=== PATIENT | male | born 1945 | race Caucasian/White ===

== ENCOUNTER 2022-07-02 22:23 | Emergency (ER) | payer MEDICARE ==
[2022-07-02 22:35] VITALS: RESP 16; TEMP 98.3
[2022-07-02] MEDS ORDERED: MORPHINE SULFATE 4 MG/ML SYRINGE IVP STA (22:35)
--- NOTE | 2022-07-02 23:50 | CT ---
EXAMINATION TYPE: CT thor lumbar spine wo con DATE OF EXAM: 07/02/2022 COMPARISON: None HISTORY: fall, back pain CT DLP: 2814.5 mGycm Automated exposure control for dose reduction was used. Images obtained from the level of T1-S1 vertebra with no contrast. The vertebrae have fairly normal alignment. No significant disc space narrowing. No compression fract ure. There is osteopenia. There is some minimal biconcave changes in the lumbar vertebral bodies. No significant loss of height. There is 10% anterior wedging of multiple lower thoracic vertebrae that d oes not appear acute. There is no thoracic paraspinal mass. The posterior elements are intact. There is hypertrophic facet arthropathy and ligament thickening with spinal stenosis at L4-5 and mild spinal stenosis at L3-4. The sacroiliac joints are intact. No focal bone destruction. IMPRESSION: No evidence of acute traumatic abnormality of the thoracic and lumbar spine. Multiple mild compressio n deformities as above consistent with osteoporosis and osteomalacia. L4-5 bony spinal stenosis.
[2022-07-03] MEDS ORDERED: HYDROmorphone 1 MG/ML 1 ML SYRINGE IVP STA (00:22)
--- NOTE | 2022-07-03 00:41 | ED ---
Fall HPI - General Chief Complaint: Fall Stated Complaint: Fall Time Seen by Provider: 07/02/22 22:35 Source: patient Mode of arrival: EMS - History of Present Illness Initial Comments: 76-year-old male presents emergency room and after he had a fall. States that his right leg has been hurting him and therefore it has been giving out on him. States that he fell at home around 10:00. He fell backwards onto a carpeted floor. He landed on his lower back. He was unable to get up and therefore his had a couple EMS. He did not hit his head. He is not on any blood thin ners. Denies any numbness or tingling into his legs. No incontinence or retention. Was not on the floor for an extended period of time. He does take [place] at home for pain control however has not taken any in several days. He denies passing out. No other alleviating, precipitating or modifying factors - Related Data Previous Rx's Medication Instructions Recorded HYDROcodone/APAP 10-325MG [[place] 1 tab PO Q4HR PRN #18 tab 07/03/22 10-325] Allergies Allergy/AdvReac Type Severity Reaction Status Date / Time Iodinated Contrast Media Allergy Itching Verified 07/02/22 22:36 Review of Systems ROS Statement: Those systems with pertinent positive or pertinent negative responses have been documented in the HPI. ROS Other: All systems not noted in ROS Statement are negative. Past Medical History Past Medical History: Hypertension History of Any Multi-Drug Resistant Organisms: None Reported Past Surgical History: Bariatric Surgery, Cholecystectomy Past Psychological History: No Psychological Hx Reported Smoking Status: Former smoker Past Alcohol Use History: Daily, Occasional Past Drug Use History: None Reported General Exam Limitations: no limitations General appearance: alert, in no apparent distress Head exam: Present: atraumatic, normocephalic, normal inspection Eye exam: Present: normal appearance, PERRL, EOMI. Absent: scleral icterus, conjunctival injection, periorbital swelling ENT exam: Present: normal exam, mucous membranes moist Neck exam: Present: normal inspection. Absent: tenderness, meningismus, lymphadenopathy Respiratory exam: Present: normal lung sounds bilaterally. Absent: respiratory distress, wheezes, rales, rhonchi, stridor Cardiovascular Exam: Present: regular rate, normal rhythm, normal heart sounds. Absent: systolic murmur, diastolic murmur, rubs, gallop, clicks GI/Abdominal exam: Present: soft, normal bowel sounds. Absent: distended, tenderness, guarding, rebound, rigid Extremities exam: Present: normal inspection, full ROM, normal capillary refill, other (5/5 muscle strength b/l le). Absent: tenderness, pedal edema, joint swelling, calf tenderness Back exam: Present: normal inspection, paraspinal tenderness (lumbar spine) Neurological exam: Present: alert, oriented X3, CN II-XII intact Psychiatric exam: Present: normal affect, normal mood Skin exam: Present: warm, dry, intact, normal color. Absent: rash Course Vital Signs 07/02/22 07/03/22 07/03/22 22:28 00:35 01:35 Temperature 98.3 F 98.3 F Pulse Rate 89 90 72 Respiratory 16 16 16 Rate Blood Pressure 134/86 118/68 114/72 O2 Sat by Pulse 95 96 97 Oximetry Medical Decision Making - Medical Decision Making Was pt. sent in by a medical professional or institution? @ -No Did you speak to anyone other than the patient for history? @ - Did you review nursing and triage notes? @ -Yes and I agree Were old charts reviewed? @ -none Differential Diagnosis? @ - MDM Differential Back Pain: Strain, zoster, cauda equina syndrome, epidural abscess, vertebral osteomyelitis, discitis, fracture, subluxation, disc herniation, DJD, spinal stenosis, dissection, AAA, pancreatitis, peptic ulcer disease, pyelonephritis, kidney stone this is not meant to be an all-inclusive list. EKG interpreted by me (3pts min.)? @ -no X-rays interpreted by me (1pt min.)? @ -no CT interpreted by me (1pt min.)? @ -yes U/S interpreted by me (1pt. min.)? @ -no What testing was considered but not performed? (CT, X-rays, U/S, labs)? Why? @ None What meds were considered but not given? Why? @ -[none] Did you discuss the management of the patient with other professionals? @ -none Did you reconcile home meds? @ -No Was smoking cessation discussed for >3mins.? @ -No Was critical care preformed (if so, how long)? @ -No Were there social determinants of health that impacted care today? How? (Homelessness, low income, unemployed, alcoholism, drug addiction, transportation, low edu. Level, literacy, decrease access to med. care, senior living, rehab)? @ None Was there de-escalation of care discussed even if they declined? (Discuss DNR or withdrawal of care, Hospice)? @ None What co-morbidities impacted this encounter? (DM, HTN, Smoking, COPD, CAD, Cancer, CVA, Hep., AIDS, mental health diagnosis, sleep apnea, morbid obesity)? @ - morbid obesity Was patient admitted / discharged? Upon arrival patient was placed into room 1. A thorough history and physical exam was performed. He was given 4 mg of morphine for pain control. He isn't sent for a CT of his thoracic and lumbar spine. CT does not demonstrate any acute fractures. Patient requesting more pain medications for which she was provided. He is unable to get up and ambulate without difficulty. I did discuss the diagnosis, differential and treatment options. Patient feels comfortable discharge at this time. He is given a short course of [place] for his pain. He is to follow-up with his primary care doctor and return for any new or worsening symptoms. Patient agreeable as planned is discharged home a bit her in stable condition Undiagnosed new problem with uncertain prognosis? @ -yes Drug Therapy requiring intensive monitoring for toxicity (Heparin, Nitro, Insulin, Cardizem)? @ No Were any procedures done? @ No Diagnosis/symptom? @ -acute lumbar back strain, fall Acute, or Chronic, or Acute on Chronic? @ -acute Uncomplicated (without systemic symptoms) or Complicated (systemic symptoms)? @ -uncomplicated Side effects of treatment? @ None Exacerbation, Progression, or Severe Exacerbation] @ No Poses a threat to life or bodily function? @ No - EKG Data EKG Comments: EKG demonstrates sinus rhythm with a rate of 70. TX interval 180. QRS 186. QTC of 483. No acute ST segment elevations or depressions Disposition Clinical Impression: Fall, Lumbar back pain Disposition: HOME SELF-CARE Condition: Stable Instructions (If sedation given, give patient instructions): Fall Prevention for Older Adults (ED) Additional Instructions: Please take the pain medication as directed. Follow up with your doctor. May need further imaging of your pain persists. Return for any new or worsening symptoms Prescriptions: HYDROcodone/APAP 10-325MG [[place] 10-325] 1 tab PO Q4HR PRN #18 tab PRN Reason: pain Is patient prescribed a controlled substance at d/c from ED?: Yes When asked, does pt state using other controlled substances?: No If prescribed controlled substance>3 days was MAPS reviewed?: Prescribed <3 Days If opioid is for acute pain is fill amount 7 days or less?: Yes If Rx opioid, was Start Talking consent form obtained?: Yes Referrals: Lashaun Castro MD [Primary Care Provider] - 1-2 days Time of Disposition: 01:23
[2022-07-03 02:08] VITALS: BP 114/72; PULSE 72
== END 2022-07-03 01:42 | disposition home or self-care (01) ==
LOC: EC 22:23
DX: M54.50 Low back pain, unspecified (principal); I10 Essential (primary) hypertension; Z87.891 Personal history of nicotine dependence; Z91.041 Radiographic dye allergy status; W19.XXXA Unspecified fall, initial encounter
CPT/HCPCS: 72128; 72131; 99284; 96374; 96375; J2270; J1170; 93005

== ENCOUNTER → 2022-07-12 | Outpatient (CLI) | payer MEDICARE ==
--- NOTE | 2022-07-12 18:32 | CT ---
EXAMINATION TYPE: CT thoracic spine wo con, CT lumbar spine wo con CT DLP: 5322.3 mGycm, Automated exposure control for dose reduction was used. DATE OF EXAM: 07/12/2022 6:08 PM COMPARISON: Recent study 07/02/2022. CLINICAL INDICATION:Male, 76 years old with history of M54.50 LOW BACK PAIN, UNSPECIFIED; , Fall on 0 07/02/22. Worsening Back pain and difficulty standing. TECHNIQUE: Axial images of the thoracic and lumbar spine were obtained without contrast. Coronal and sagittal reformats were performed. 3-D reformats of the bones were created on a separate workstation and submitted for review. FINDINGS: Thoracic spine demonstrates multilevel disc degeneration and facet joint arthropathy. There is straig htening of the spine. There is no evidence for fracture of the visualized thoracic spine. Partially v isualized lower cervical spine fixation hardware is present. Scattered neural foraminal stenosis wors e at T10-T11 bilaterally with at least moderate stenosis. Right lower lobe calcified granuloma. Addit ionally there is ar sclerotic focus measuring 8 mm and right rib 5 likely representing bone island. T he spinal canal appears patent. The lumbar spine demonstrates multilevel disc degeneration changes worse at L2 with compression fract ure with curvilinear lucency extending through the vertebral body with at least 50% height loss. This is not visualized on prior 07/02/2022. There is scattered facet joint arthropathy throughout the spine with varying degrees of [id number] neural foraminal stenosis. There is grade 1 anterolisthesis of L4 and L5. Spinal canal is grossly patent. There is at least moderate L4-L5 spinal canal stenosis and L3-L4 spinal canal stenosis secondary disc bulge and facet joint arthropathy. IMPRESSION: 1. Acute/subacute L2 vertebral body compression fracture with at least 50% height loss. No retropuls ion. This is more conspicuous from 07/02/2022. 2. L3-L4 and L4-L5 moderate spinal canal stenosis. A Yellow level critical message alert has been initiated for Lashaun Castro MD via the [employer] Critical Results System on 07/12/2022 6:29 PM. This message alert has been sent to Lashaun lott MD via the preferences provided by the clinician for the receipt of Radiology Critical Findings. Message ID [id number].
== END | disposition home or self-care (01) ==
LOC: RADCTMAIN 16:51
PROVIDERS: ATTEND Family Medicine
DX: M48.56XA Collapsed vertebra, not elsewhere classified, lumbar region, initial encounter for fracture (principal); M48.061 Spinal stenosis, lumbar region without neurogenic claudication
CPT/HCPCS: 72128; 72131

== ENCOUNTER → 2022-10-22 | Outpatient (CLI) | payer MEDICARE ==
[2022-10-22 15:46] LABS: HCT 46.4 % (39.6-50.0); HGB 14.1 g/dL (13.0-17.0); MCHC 30.4 g/dL (32.0-37.0); MCV 92.1 fL (80.0-97.0); Mean Platelet Volume 11.3 fL (9.5-12.2); NRBC Per 100 WBC 0 /100 WBCS (0.0-0.0); Platelet Count 226 X 10*3/uL (140-440); RBC 5.04 X 10*6/uL (4.40-5.60); RDW 16.1 % (11.5-14.5); WBC 6.79 X 10*3/uL (4.50-10.00)
[2022-10-22 16:04] LABS: Anion Gap 7.8 mmol/L (10.00-18.00); Carbon Dioxide 27.5 mmol/L (20.0-27.5); Potassium 5.1 mmol/L (3.5-5.5)
[2022-10-22 16:05] LABS: Blood Urea Nitrogen 24.7 mg/dL (9.0-27.0); Non-African American GFR(CKD) 55.2 (60.0-200.0)
== END | disposition home or self-care (01) ==
LOC: LABPAT 11:41
PROVIDERS: ATTEND Internal Medicine Interventional Cardiology
DX: Z01.812 Encounter for preprocedural laboratory examination (principal); I25.10 Atherosclerotic heart disease of native coronary artery without angina pectoris
CPT/HCPCS: 80051; 82565; 84520; 85027

== ENCOUNTER 2022-10-25 06:10 | Day surgery (SDC) | payer MEDICARE ==
[2022-10-22 16:35] VITALS: BMI 34.9
[~2022-10-25 06:10] MED LIST: ALPRAZolam 0.25 MG TAB PO PRN; ALPRAZolam 0.5 MG TAB PO PRN; HEPARIN SODIUM,PORCINE 10,000 UNIT in SODIUM CHLORIDE 0.9% 1,000 ML IRRIGATION PRN; HEPARIN SODIUM,PORCINE 2,500 UNIT in SODIUM CHLORIDE 0.9% 250 ML IRRIGATION PRN; NITROGLYCERIN SL TABS 0.4 MG TAB SUBLINGUAL PRN; SODIUM CHLORIDE 0.9% 1,000 ML in EMPTY BAG 1 BAG IV SCH
[2022-10-25 06:55] VITALS: RESP 16; TEMP 97.5
[2022-10-25] MEDS ORDERED: ATORVASTATIN 80 MG TAB PO ONE (07:00)
[2022-10-25] MEDS ORDERED: ASPIRIN 325 MG TAB PO ONE (07:00)
[2022-10-25] MEDS ORDERED: VERAPAMIL 2.5 MG/ML 2 ML AMP ONE (07:12)
[2022-10-25] MEDS ORDERED: HEPARIN SODIUM 1,000 UN/ML (10ML VL) ONE (07:27)
[2022-10-25] MEDS ORDERED: MIDAZOLAM 2 MG/2 ML VIAL IVP ONE (07:41)
[2022-10-25] MEDS ORDERED: LIDOCAINE 1% INJ 10MG/ML (5 ML VIAL-PF) SQ ONE (07:41)
[2022-10-25] MEDS ORDERED: VERAPAMIL SYRINGE (5 MG/10 ML) INTRAARTER ONE (07:45)
[2022-10-25] MEDS ORDERED: IOPAMIDOL-370 100ML BTL INJ ONE (08:15)
[2022-10-25] MEDS ORDERED: RX INFO: IV CONTRAST WAS GIVEN 1 EACH MISC MISCELLANE PRN (08:19)
--- NOTE | 2022-10-25 08:22 | P.PCN ---
Date of Procedure: 10/25/22 Operative Findings: CARDIAC CATHETERIZATION PERFORMING PHYSICIAN: Terrance Jay MD, RPVI PROCEDURE PERFORMED: 1. Selective right and left coronary angiogram INDICATION: Unstable angina in this 76-year-old gentleman with multiple risk factors for CAD and also history of cardiomyopathy. COMPLICATION: None APPROACH: Right radial artery LEVEL OF SEDATION: Moderate with a sedation length of 33 minutes PROCEDURE DESCRIPTION: After obtaining an informed consent, the patient was brought to cardiac organic lab worker. Local anesthesia was performed using lidocaine subcutaneously. The right radial artery was cannulated using Seldinger technique, the guidewire passed easily, following that we advanced a 5-[place] sheath dilator assembly, the wire and dilator were removed and sheath was flushed. Following that, 2 mg of verapamil along with 5000 unit heparin were given. Selective right and left coronary angiogram using a 6-[place] JR4 and JL 3.5 catheters. The procedure was completed there was no complication. SELECTIVE CORONARY ANGIOGRAM: The right coronary artery: Large-caliber vessel and a dominant vessel. The RCA has mild disease distally. Left main: Is angiographically normal. Bifurcates into on the LCx and LAD The left circumflex: Large caliber vessel none dominant vessel. The LCx has mild disease only. Gives rise into a large OM branch which appeared to be angiographically normal The left anterior descending artery: The proximal LAD appeared to have mild disease only. The mid and distal LAD appears to have mild disease as well. The LAD gives rise to 3 diagonal branches appeared to be angiographically normal CONCLUSION: 1. Mild nonobstructive coronary artery disease POSTPROCEDURE MANAGEMENT: Medical treatment and follow-up with the patient
[2022-10-25] MEDS ORDERED: SODIUM CHLORIDE 0.9% 1,000 ML IV SCH (08:30)
[2022-10-25 09:32] VITALS: PULSE 82
[2022-10-25 11:49] VITALS: BP 117/68
== END 2022-10-25 13:20 | disposition home or self-care (01) ==
LOC: CATHCVL 06:10
PROVIDERS: ATTEND Internal Medicine Interventional Cardiology
DX: I25.10 Atherosclerotic heart disease of native coronary artery without angina pectoris (principal)
CPT/HCPCS: 93454; C1769 ×3; C1894; C1887; J2250; J2001; J1644; Q9967

== ENCOUNTER → 2023-01-15 | Outpatient (CLI) | payer MEDICARE ==
--- NOTE | 2023-01-15 19:14 | NM ---
EXAMINATION TYPE: NM bone scan whole body DATE OF EXAM: 01/15/2023 COMPARISON: NONE CLINICAL INDICATION: Male, 77 years old with history of M47.816, M51.16, S22.080S; low back pain, fal l in July. Previous right shoulder and bilateral knee replacements. Technique: Delayed whole-body scanning was performed following the injection of 23.5 mCi Tc 99m MDP. Images acquired 3 hours post injection. FINDINGS: Photopenia at the right shoulder and both knees compatible with underlying joint replacements. There is scattered tracer activity at the sternoclavicular joints, base of the thumb on both sides, a nd left ankle/hindfoot. No suspicious distribution of tracer to suggest osseous metastatic disease. No abnormal activity with particular attention to the lumbar spine. IMPRESSION: 1. Some degenerative tracer activity at the sternoclavicular joints and base of the thumbs. Focal act ivity also along the left ankle or hindfoot could be post traumatic or on a degenerative basis as wel l. 2. No scintigraphic evidence for osseous metastatic disease.
== END | disposition home or self-care (01) ==
LOC: RADNMMAIN 10:22
PROVIDERS: ATTEND Physical Medicine & Rehabilitation
DX: M47.26 Other spondylosis with radiculopathy, lumbar region (principal); M51.16 Intervertebral disc disorders with radiculopathy, lumbar region; M43.16 Spondylolisthesis, lumbar region; M48.062 Spinal stenosis, lumbar region with neurogenic claudication; S22.080S Wedge compression fracture of T11-T12 vertebra, sequela; S32.020S Wedge compression fracture of second lumbar vertebra, sequela; M19.011 Primary osteoarthritis, right shoulder; Z96.653 Presence of artificial knee joint, bilateral; M54.51 Vertebrogenic low back pain; X58.XXXS Exposure to other specified factors, sequela; W19.XXXS Unspecified fall, sequela
CPT/HCPCS: 78306; A9503

== ENCOUNTER 2023-02-28 07:53 | Day surgery (SDC) | payer MEDICARE ==
[2023-02-28] MEDS ORDERED: diazePAM 5 MG TAB PO STA (08:24)
[2023-02-28 12:31] VITALS: RESP 16
[2023-02-28 13:48] VITALS: BP 147/88; PULSE 76
--- NOTE | 2023-02-28 16:28 | FL ---
EXAMINATION TYPE: FL myelogram 2 or more regions DATE OF EXAM: 02/28/2023 10:13 AM CLINICAL INDICATION:Male, 77 years old with history of M50.321; COMPARISON: Same day CT, TECHNIQUE: After the procedure was explained and informed consent was obtained from the patient, the patient was prepped and draped in the usual sterile fashion. Patient was put in the prone position an d the lower lumbar spine was imaged. 1% Lidocaine was used as local anesthetic using a 25 gauge needl e. A 22 gauge spinal needle was then advanced into the thecal sac using fluoroscopic guidance. Approx imately 10 cc of contrast was injected into the thecal sac. The needle was then removed and a Band-A id was applied. The patient tolerated procedure well. The patient was then sent to the CT unit for CT exam. Fluoroscopic time: 31 seconds Fluoroscopic images: 0 Radiographs taken: 8 DAP not reported by machine. FINDINGS: The lumbar vertebral bodies have preserved heights and alignment. The contrast column was seen at the level of approximately L2. The lumbar spine did demonstrate lower lumbar endplate scleros is and osteophytosis. Patient was then sent to CT holding in the Trendelenburg position for approximately 45 minutes prior to scanning. IMPRESSIONS: Successful myelogram with CT myelogram to follow.
--- NOTE | 2023-02-28 19:10 | CT ---
EXAMINATION TYPE: CT cervical spine w con CT DLP: 1664.5 mGycm, Automated exposure control for dose reduction was used. DATE OF EXAM: 02/28/2023 11:07 AM COMPARISON: None. CLINICAL INDICATION:Male, 77 years old with history of M50.321, post myelogram TECHNIQUE: Axial CT images from the skull base to the inferior aspect of T2 we obtained without intra venous contrast. Coronal and sagittal reformatted images were also reviewed. Contrast used:10cc intrathecal contrast of Isovue M300 (if blank None) Oral contrast used: (if blank None) FINDINGS: Fracture: None. Osseous structures: Multilevel disc degeneration changes are seen throughout the spine. There is fixa tion hardware from C5 to C7 which appears intact. There is at least mild spinal canal stenosis at C3- C4 and C4-C5. Vertebral alignment: Alignment within normal limits. Spinal canal/Neural Foramina: There is at least mild spinal canal stenosis at C3-C4 and C4-C5 seconda ry to disc osteophyte complex's.. The neural foramen are moderately stenosis at C3-C4, mildly at righ t C4-C5, moderately bilateral C5-C6, and moderately to severe left C6-C7. Neck soft tissues: Prevertebral soft tissues are within normal limits. Other: The airway is patent. The lung apices are clear. Atherosclerosis of the carotid bifurcations. IMPRESSION: 1. No evidence of cervical spine fracture. 2. There is at least mild spinal canal stenosis at C3-C4 and C4-C5. 3. Multilevel degeneration changes with moderate multilevel neural foraminal stenosis 4. Post fixation changes with hardware intact.
--- NOTE | 2023-02-28 19:44 | CT ---
EXAMINATION TYPE: CT lumbar spine w con CT DLP: 645 mGycm, Automated exposure control for dose reduction was used. DATE OF EXAM: 02/28/2023 10:27 AM COMPARISON: 07/12/2022. CLINICAL INDICATION:Male, 77 years old with history of M50.321; PHH, post myelogram TECHNIQUE: Multiple axial images were obtained from the midportion of T11 through the sacroiliac edna nts. Soft tissue and bone windows in coronal and sagittal planes were obtained and reviewed. 3- Contrast used:10cc of Isovue M300 intrathecal. Oral contrast used: none. FINDINGS: Alignment: There are 5 lumbar type vertebral bodies. Grade 1 anterolisthesis of L4 on L5. Bone: No evidence of fracture is identified. Multilevel disc degeneration changes with osteophyte fo rmation and facet joint arthropathy. Scattered disc space narrowing is present throughout the spine. There is compression deformity of the L2 vertebral body with at least 50% height loss. No retropulsio n. No significant spinal canal stenosis. Discs: T12-L1: Facet joint arthropathy without significant spinal canal stenosis and mild bilateral neural f oraminal stenosis. L1-L2: Facet joint arthropathy without significant spinal canal stenosis and mild bilateral neural fo raminal stenosis. L2-L3: Facet joint arthropathy and disc bulging result with mild spinal canal stenosis and moderate b ilateral neural foraminal stenosis. L3-L4: Facet joint arthropathy and disc bulging result with moderate to severe spinal canal stenosis and moderate bilateral neural foraminal stenosis. L4-L5: Facet joint arthropathy and disc bulging result with mild to moderate spinal canal stenosis an d moderate to severe bilateral neural foraminal stenosis. L5-S1: Facet joint arthropathy and disc bulging without significant spinal canal stenosis . There is moderate neural foraminal stenosis bilaterally. Other: Moderate to severe atherosclerotic disease of the arterial vasculature. IMPRESSION: 1. Disc degeneration changes worse at L4-L5 with moderate to severe spinal canal stenosis and bilate ral neural foraminal stenosis. 2. Compression fracture of the L2 vertebrae with at least 50% height loss. No retropulsion.
== END 2023-02-28 14:00 | disposition home or self-care (01) ==
LOC: RADPROMAIN 07:53
PROVIDERS: ATTEND Orthopaedic Surgery Orthopaedic Surgery of the Spine
DX: M50.321 Other cervical disc degeneration at C4-C5 level (principal); M48.02 Spinal stenosis, cervical region
CPT/HCPCS: 62305; 72126; 72132; Q9967

== ENCOUNTER 2024-06-08 16:57 | Observation (INO) | payer MEDICARE ==
--- NOTE | 2024-06-08 18:38 | ED ---
General Adult HPI - General Chief complaint: Extremity Problem,Nontraumatic Stated complaint: bilateral foot swelling Time Seen by Provider: 06/08/24 17:10 Source: patient, family, RN notes reviewed Mode of arrival: wheelchair Limitations: no limitations - History of Present Illness Initial comments: This is a 78-year-old male with a history of congestive heart failure, atrial fibrillation with pacemaker on Eliquis presented to the emergency room with his for complaint of bilateral lower extremity edema and shortness of breath. States that over the past week he has been experiencing worsening dyspnea on exertion in addition to orthopnea. Over the past 2 days patient has experienced worsening bilateral lower extremity edema. Additionally, he has had a 10+ pound weight gain over the past week. She denies chest pain, heart palpitations, diz ziness, lightheadedness, abdominal pain. States he has been taking his medications as prescribed including Aldactone and Lasix. - Related Data Home Medications Medication Instructions Recorded Confirmed Cyclobenzaprine [Flexeril] 10 mg PO TID PRN 08/10/22 03/26/23 Escitalopram [Lexapro] 20 mg PO HS 08/10/22 03/26/23 Famotidine [Pepcid] 20 mg PO BID 08/10/22 03/26/23 Furosemide [Lasix] 40 mg PO DAILY 08/10/22 03/26/23 HYDROcodone/APAP 10-325MG [[place] 1 tab PO Q6H PRN 08/10/22 03/26/23 10-325] Metoprolol Succinate [Toprol XL] 100 mg PO HS 03/26/23 03/26/23 Sacubitril/Valsartan [Entresto 24 1 tab PO BID 03/26/23 03/26/23 mg-26 mg Tablet] Spironolactone [Aldactone] 25 mg PO HS 03/26/23 03/26/23 Previous Rx's Medication Instructions Recorded Apixaban [Eliquis] 5 mg PO BID tab 08/18/22 Aspirin 81 mg PO DAILY tab 08/18/22 Nitroglycerin Sl Tabs [Nitrostat] 0.4 mg SUBLINGUAL Q5M PRN tab 08/18/22 Allergies Allergy/AdvReac Type Severity Reaction Status Date / Time Iodinated Contrast Media Allergy Itching Verified 06/08/24 17:31 Review of Systems ROS Statement: Those systems with pertinent positive or pertinent negative responses have been documented in the HPI. ROS Other: All systems not noted in ROS Statement are negative. Past Medical History Past Medical History: Atrial Fibrillation, Heart Failure, Hypertension Additional Past Medical History / Comment(s): aortic aneurysm History of Any Multi-Drug Resistant Organisms: None Reported Past Surgical History: AICD, Bariatric Surgery, Cholecystectomy, Pacemaker Past Anesthesia/Blood Transfusion Reactions: No Reported Reaction Type of Cardiac Device: Permanent Pacemaker, AICD Device Placement Date:: 2010 Past Psychological History: No Psychological Hx Reported Smoking Status: Former smoker Past Alcohol Use History: Occasional Past Drug Use History: None Reported - Past Family History Father Family Medical History: Congestive Heart Failure (CHF), COPD, Diabetes Mellitus Mother Family Medical History: Congestive Heart Failure (CHF), Diabetes Mellitus General Exam Limitations: no limitations Eye exam: Present: normal appearance, PERRL, EOMI. Absent: scleral icterus, c onjunctival injection, periorbital swelling Neck exam: Present: normal inspection. Absent: tenderness, meningismus, lymphadenopathy Respiratory exam: Present: normal lung sounds bilaterally. Absent: respiratory distress, wheezes, rales, rhonchi, stridor Cardiovascular Exam: Present: regular rate, irregular rhythm, normal heart sounds. Absent: systolic murmur, diastolic murmur, rubs, gallop, clicks GI/Abdominal exam: Present: soft, normal bowel sounds. Absent: distended, tenderness, guarding, rebound, rigid Extremities exam: Present: pedal edema, other (bilateral LE 2+ pitting edema) Back exam: Present: normal inspection Skin exam: Present: warm, dry, intact, normal color. Absent: rash Course Vital Signs 06/08/24 06/08/24 06/08/24 17:31 20:25 21:17 Temperature 97.4 F L Pulse Rate 85 89 110 H Respiratory 18 20 18 Rate Blood Pressure 95/76 119/74 108/86 O2 Sat by Pulse 97 100 98 Oximetry Medical Decision Making - Medical Decision Making Was pt. sent in by a medical professional or institution (, PA, SUPERVISOR LOADING, urgent care, hospital, or usp...) When possible be specific @ -No Did you speak to anyone other than the patient for history (EMS, parent, family, police, friend...)? What history was obtained from this source @ -No Did you review nursing and triage notes (agree or disagree)? Why? @ -I reviewed and agree with nursing and triage notes Were old charts reviewed (outside hosp., previous admission, EMS record, old EKG, old radiological studies, urgent care reports/EKG's, usp records)? Report findings @ -No old charts were reviewed Differential Diagnosis (chest pain, altered mental status, abdominal pain women, abdominal pain men, vaginal bleeding, weakness, fever, dyspnea, syncope, headache, dizziness, GI bleed, back pain, seizure, CVA, palpatations, mental health, musculoskeletal)? @ -Differential Dyspnea: Coronary syndrome, arrhythmia, tamponade, asthma, COPD, pulmonary embolism, pneumonia, pneumothorax, pulmonary effusion, anaphylaxis, diabetic ketoacidosis, flailed chest, pulmonary contusion, diaphragmatic rupture, anemia, neuromuscular, this is not meant to be an all-inclusive list. EKG interpreted by me (3pts min.). @ - Completed at 1928 electronic atrial pacemaker and ventricular pacemaker with a ventricular rate of 110, UT interval 160, QRS 216, QTc 526. X-rays interpreted by me (1pt min.). @ -Chest x-ray no acute cardiopulmonary process or disease CT interpreted by me (1pt min.). @ -None done U/S interpreted by me (1pt. min.). @ -None done What testing was considered but not performed or refused? (CT, X-rays, U/S, labs)? Why? @ -None What meds were considered but not given or refused? Why? @ -None Did you discuss the management of the patient with other professionals (professionals i.e. , PA, SUPERVISOR [employer]ING, lab, RT, psych nurse, social work therapist, system support administrator, teacher, development officer, rn field case manager)? Give summary @ -I spoke with on-call internal medicine physician, Dr. Butts, regard to laboratory study findings concerning for hypocalcemia and clinical exam findings and BNP elevated consistent with CHF exacerbation. Patient is accepted for admission. Was smoking cessation discussed for >3mins.? @ -No Was critical care preformed (if so, how long)? @ -No Were there social determinants of health that impacted care today? How? (Homelessness, low income, unemployed, alcoholism, drug addiction, transportation, low edu. Level, literacy, decrease access to med. care, halfway, rehab)? @ -No Was there de-escalation of care discussed even if they declined (Discuss DNR or withdrawal of care, Hospice)? DNR status @ -No What co-morbidities impacted this encounter? (DM, HTN, Smoking, COPD, CAD, Cancer, CVA, ARF, Chemo, Hep., AIDS, mental health diagnosis, sleep apnea, morbid obesity)? @ -None Was patient admitted / discharged? Hospital course, mention meds given and route, prescriptions, significant lab abnormalities, going to OR and other pertinent info. @ -Admitted. 78-year-old male with dyspnea and lower extremity edema. Patient noted to have bilateral 2+ pitting lower extremity edema. Labs remarkable for hypocalcemia of 6.4, hypokalemia 3.3, elevated BNP 3810. Chest x-ray no acute process. Patient will be admitted to internal medicine with cardiology on consult and started on calcium supplementation and diuresis with concern for CHF exacerbation. Case discussed with Dr. Marino Undiagnosed new problem with uncertain prognosis? @ -No Drug Therapy requiring intensive monitoring for toxicity (Heparin, Nitro, Insulin, Cardizem)? @ -No Were any procedures done? @ -No Diagnosis/symptom? @ -Hypocalcemia, hypokalemia, CHF exacerbation Acute, or Chronic, or Acute on Chronic? @ -Acute Uncomplicated (without systemic symptoms) or Complicated (systemic symptoms)? @ -Complicated Side effects of treatment? @ -No Exacerbation, Progression, or Severe Exacerbation? @ -No Poses a threat to life or bodily function? How? (Chest pain, [place], [place], pneumonia, PE, COPD, DKA, ARF, appy, cholecystitis, CVA, Diverticulitis, Homicidal, Suicidal, threat to staff... and all critical care pts) @ -No - Lab Data Result diagrams: 06/08/24 19:26 06/08/24 19:26 Lab Results 06/08/24 06/08/24 06/08/24 Range/Units 19:26 19:26 19:26 WBC 6.1 (3.8-10.6) k/uL RBC 4.30 (4.30-5.90) m/uL Hgb 11.4 L (13.0-17.5) gm/dL Hct 37.3 L (39.0-53.0) % MCV 86.7 (80.0-100.0) fL MCH 26.6 (25.0-35.0) pg MCHC 30.6 L (31.0-37.0) g/dL RDW 16.6 H (11.5-15.5) % Plt Count 282 (150-450) k/uL MPV 8.8 Neutrophils % 65 % Lymphocytes % 22 % Monocytes % 8 % Eosinophils % 3 % Basophils % 0 % Neutrophils # 4.0 (1.3-7.7) k/uL Lymphocytes # 1.3 (1.0-4.8) k/uL Monocytes # 0.5 (0-1.0) k/uL Eosinophils # 0.2 (0-0.7) k/uL Basophils # 0.0 (0-0.2) k/uL Hypochromasia Moderate Anisocytosis Slight PT 11.5 (10.0-12.5) sec INR 1.1 (<1.2) APTT 24.8 (22.0-30.0) sec Sodium 138 (137-145) mmol/L Potassium 3.3 L (3.5-5.1) mmol/L Chloride 114 H (98-107) mmol/L Carbon Dioxide 20 L (22-30) mmol/L Anion Gap 4 mmol/L BUN 30 H (9-20) mg/dL Creatinine 1.02 (0.66-1.25) mg/dL Est GFR (CKD-EPI)AfAm 81 (>60 ml/min/1.73 sqM) Est GFR (CKD-EPI)NonAf 70 (>60 ml/min/1.73 sqM) Glucose 87 (74-99) mg/dL Calcium 6.4 L* (8.4-10.2) mg/dL Ionized Calcium [place] (4.5-5.3) mg/dL Phosphorus (2.5-4.5) mg/dL Magnesium 1.8 (1.6-2.3) mg/dL Total Bilirubin 0.5 (0.2-1.3) mg/dL AST 20 (17-59) U/L ALT 34 (4-49) U/L Alkaline Phosphatase 78 (38-126) U/L Troponin I (0.000-0.034) ng/mL NT-Pro-B Natriuret Pep 3810 pg/mL Total Protein 4.6 L (6.3-8.2) g/dL Albumin 2.4 L (3.5-5.0) g/dL 06/08/24 06/08/24 06/08/24 Range/Units 19:26 19:26 20:41 WBC (3.8-10.6) k/uL RBC (4.30-5.90) m/uL Hgb (13.0-17.5) gm/dL Hct (39.0-53.0) % MCV (80.0-100.0) fL MCH (25.0-35.0) pg MCHC (31.0-37.0) g/dL RDW (11.5-15.5) % Plt Count (150-450) k/uL MPV Neutrophils % % Lymphocytes % % Monocytes % % Eosinophils % % Basophils % % Neutrophils # (1.3-7.7) k/uL Lymphocytes # (1.0-4.8) k/uL Monocytes # (0-1.0) k/uL Eosinophils # (0-0.7) k/uL Basophils # (0-0.2) k/uL Hypochromasia Anisocytosis PT (10.0-12.5) sec INR (<1.2) APTT (22.0-30.0) sec Sodium (137-145) mmol/L Potassium (3.5-5.1) mmol/L Chloride (98-107) mmol/L Carbon Dioxide (22-30) mmol/L Anion Gap mmol/L BUN (9-20) mg/dL Creatinine (0.66-1.25) mg/dL Est GFR (CKD-EPI)AfAm (>60 ml/min/1.73 sqM) Est GFR (CKD-EPI)NonAf (>60 ml/min/1.73 sqM) Glucose (74-99) mg/dL Calcium (8.4-10.2) mg/dL Ionized Calcium [place] 4.6 (4.5-5.3) mg/dL Phosphorus 3.1 (2.5-4.5) mg/dL Magnesium (1.6-2.3) mg/dL Total Bilirubin (0.2-1.3) mg/dL AST (17-59) U/L ALT (4-49) U/L Alkaline Phosphatase (38-126) U/L Troponin I 0.017 (0.000-0.034) ng/mL NT-Pro-B Natriuret Pep pg/mL Total Protein (6.3-8.2) g/dL Albumin (3.5-5.0) g/dL Disposition Clinical Impression: Acute exacerbation of congestive heart failure, Hypocalcemia Disposition: ADMITTED IP TO THIS [facility] Condition: Stable Decision to Admit Reason: Admit from EC Decision Date: 06/08/24 Decision Time: 21:07
[2024-06-08 19:38] LABS: Anisocytosis Slight; Basophils % (A) 0 %; Eosinophils # (A) 0.2 k/uL (0-0.7); Eosinophils % (A) 3 %; HCT 37.3 % (39.0-53.0); HGB 11.4 gm/dL (13.0-17.5); Hypochromasia Moderate; Lymphocytes # (A) 1.3 k/uL (1.0-4.8); Lymphocytes % (A) 22 %; MCH 26.6 pg (25.0-35.0); MCHC 30.6 g/dL (31.0-37.0); MCV 86.7 fL (80.0-100.0); Mean Platelet Volume 8.8; Monocytes # (A) 0.5 k/uL (0-1.0); Monocytes % (A) 8 %; Neutrophils % (A) 65 %; Platelet Count 282 k/uL (150-450); RDW 16.6 % (11.5-15.5); WBC 6.1 k/uL (3.8-10.6)
[2024-06-08 19:44] LABS: INR 1.1 (<1.2); Partial Thromboplastin Time 24.8 sec (22.0-30.0); Prothrombin Time 11.5 sec (10.0-12.5)
[2024-06-08 19:47] LABS: ALT 34 U/L (4-49); AST 20 U/L (17-59); African American GFR (CKD) 81 (>60 ml/min/1.73 sqM); Albumin 2.4 g/dL (3.5-5.0); Alkaline Phosphatase 78 U/L (38-126); Anion Gap 4 mmol/L; Blood Urea Nitrogen 30 mg/dL (9-20); Carbon Dioxide 20 mmol/L (22-30); Chloride 114 mmol/L (98-107); Glucose 87 mg/dL (74-99); Magnesium 1.8 mg/dL (1.6-2.3); Non-African American GFR(CKD) 70 (>60 ml/min/1.73 sqM); Potassium 3.3 mmol/L (3.5-5.1); Sodium 138 mmol/L (137-145); Total Bilirubin 0.5 mg/dL (0.2-1.3); Total Protein 4.6 g/dL (6.3-8.2)
[2024-06-08 19:55] LABS: NT-Pro-B-Type Natriuretic Pept 3810 pg/mL
[2024-06-08 20:01] LABS: Calcium 6.4 mg/dL (8.4-10.2)
[2024-06-08] MEDS ORDERED: NALOXONE 0.4 MG/ML 1 ML VIAL IV PRN (21:07)
[2024-06-08] MEDS ORDERED: IBUPROFEN 400 MG TAB PO PRN (21:07)
[2024-06-08] MEDS: FUROSEMIDE 10 MG/ML 4 ML VIAL IV SCH (21:18)
[2024-06-08] MEDS: CALCIUM CARBONATE 500 MG CHEWABLE PO SCH (21:24)
[2024-06-08] MEDS: CALCIUM GLUCONATE IN NACL 1 GM in SALINE 1 100ML.BAG IVPB ONE (21:24)
--- NOTE | 2024-06-08 21:32 | XR ---
EXAMINATION TYPE: XR chest 2V DATE OF EXAM: 06/08/2024 7:45 PM CLINICAL INDICATION:Male, 78 years old with history of SOB, edema; PHH COMPARISON: Chest radiographs from TECHNIQUE: XR chest 2V Frontal view of the chest. FINDINGS: Lungs/Pleura: Low lung volumes are present. There is no evidence of pleural effusion, focal consolida tion, or pneumothorax. Pulmonary vascularity: Unremarkable. Heart/mediastinum: Cardiomediastinal silhouette is unremarkable. Stable appearance of a left chest p acemaker device. Musculoskeletal: No acute osseous pathology. Partially visualized surgical changes of the right shoul francisco and cervical spine. Other findings: None IMPRESSION: No acute cardiopulmonary disease/process. [facility], , 06/08/2024 9:29 PM
[2024-06-09] MEDS: HYDROcodone/APAP 10-325MG 1 EACH TAB PO ONE (03:50)
[2024-06-09] MEDS ORDERED: Potassium Replacement Protocol 1 EACH MISC MISCELLANE PRN (05:04)
[2024-06-09] MEDS: POTASSIUM CHLORIDE ER 20 MEQ TAB.ER PO SCH (05:30)
[2024-06-09 06:47] LABS: Anisocytosis Slight; Basophils % (A) 0 %; Eosinophils # (A) 0.2 k/uL (0-0.7); Eosinophils % (A) 3 %; HCT 38.9 % (39.0-53.0); HGB 11.4 gm/dL (13.0-17.5); Hypochromasia Marked; Lymphocytes # (A) 1.9 k/uL (1.0-4.8); Lymphocytes % (A) 23 %; MCH 25.6 pg (25.0-35.0); MCHC 29.3 g/dL (31.0-37.0); MCV 87.3 fL (80.0-100.0); Mean Platelet Volume 8.4; Monocytes # (A) 0.7 k/uL (0-1.0); Monocytes % (A) 8 %; Neutrophils # (A) 5.5 k/uL (1.3-7.7); Neutrophils % (A) 65 %; Platelet Count 296 k/uL (150-450); RBC 4.45 m/uL (4.30-5.90); RDW 16.5 % (11.5-15.5); WBC 8.5 k/uL (3.8-10.6)
[2024-06-09 07:07] LABS: ALT 45 U/L (4-49); AST 28 U/L (17-59); African American GFR (CKD) 54 (>60 ml/min/1.73 sqM); Albumin 3.6 g/dL (3.5-5.0); Alkaline Phosphatase 112 U/L (38-126); Anion Gap 7 mmol/L; Blood Urea Nitrogen 38 mg/dL (9-20); Calcium 8.9 mg/dL (8.4-10.2); Carbon Dioxide 30 mmol/L (22-30); Chloride 101 mmol/L (98-107); Glucose 126 mg/dL (74-99); Non-African American GFR(CKD) 47 (>60 ml/min/1.73 sqM); Potassium 4.7 mmol/L (3.5-5.1); Sodium 138 mmol/L (137-145); Total Bilirubin 0.7 mg/dL (0.2-1.3); Total Protein 6.1 g/dL (6.3-8.2)
[2024-06-09] MEDS ORDERED: METOPROLOL SUCCINATE (ER) 50 MG TAB.ER.24H PO SCH (09:00)
[2024-06-09] MEDS: METOPROLOL TARTRATE 50 MG TAB PO ONE (09:09)
[2024-06-09] MEDS: APIXABAN 5 MG TAB PO SCH (09:09)
[2024-06-09] MEDS: SACUBITRIL/VALSARTAN 24 MG-26 MG TABLET PO SCH (09:10)
[2024-06-09] MEDS: SPIRONOLACTONE 25 MG TAB PO SCH (09:11)
[2024-06-09 09:18] VITALS: RESP 16
--- NOTE | 2024-06-09 09:49 | P.HPIM ---
History of Present Illness H&P Date: 06/09/24 Idris Duenas is a 78 year old male patient of Dr. Rodriguez who presented for concerns of increased edema, weight gain and shortness of breath over the past 2 days. Patient has a past medical history of CHF, atrial fibrillation in which she is maintained on Eliquis and pacemaker chest x-ray completed showing no acute cardiopulmonary disease EKG completed showing electronic rule atrial placed. Lab work revealing BNP 3810, troponin 0.017, albumin 2.4, ionized calcium 6.4, creatinine 1.02 bun 30 potassium 3.3. Upon exam patient is alert and oriented x 3. Some mild lower extremity edema noted. Patient also noted to have bilateral petechial rash on feet patient reports improvement denies itch ing. Patient denies chest pain. Patient does report some shortness of breath. Patient denies nausea vomiting or diarrhea. Patient denies any urinary burning or frequency. At this time cardiology and nephrology services have been consulted 2D echo has been ordered Review of Systems Please refer to HPI otherwise unremarkable Past Medical History Past Medical History: Atrial Fibrillation, Heart Failure, Hypertension Additional Past Medical History / Comment(s): aortic aneurysm History of Any Multi-Drug Resistant Organisms: None Reported Past Surgical History: AICD, Bariatric Surgery, Cholecystectomy, Pacemaker Past Anesthesia/Blood Transfusion Reactions: No Reported Reaction Type of Cardiac Device: Permanent Pacemaker, AICD Device Placement Date:: 2010 Past Psychological History: No Psychological Hx Reported Smoking Status: Former smoker Past Alcohol Use History: Occasional Past Drug Use History: None Reported - Past Family History Father Family Medical History: Congestive Heart Failure (CHF), COPD, Diabetes Mellitus Mother Family Medical History: Congestive Heart Failure (CHF), Diabetes Mellitus Medications and Allergies Home Medications Medication Instructions Recorded Confirmed Type Cyclobenzaprine [Flexeril] 10 mg PO TID PRN 08/10/22 03/26/23 History Escitalopram [Lexapro] 20 mg PO HS 08/10/22 03/26/23 History Famotidine [Pepcid] 20 mg PO BID 08/10/22 03/26/23 History Furosemide [Lasix] 40 mg PO DAILY 08/10/22 03/26/23 History HYDROcodone/APAP 10-325MG [[place] 1 tab PO Q6H PRN 08/10/22 03/26/23 History 10-325] Apixaban [Eliquis] 5 mg PO BID tab 08/18/22 03/26/23 Rx Aspirin 81 mg PO DAILY tab 08/18/22 03/26/23 Rx Nitroglycerin Sl Tabs [Nitrostat] 0.4 mg SUBLINGUAL Q5M PRN tab 08/18/2203/02 Rx Metoprolol Succinate [Toprol XL] 100 mg PO HS 03/26/23 03/26/23 History Sacubitril/Valsartan [Entresto 24 1 tab PO BID 03/26/23 03/26/23 History mg-26 mg Tablet] Spironolactone [Aldactone] 25 mg PO HS 03/26/23 03/26/23 History Allergies Allergy/AdvReac Type Severity Reaction Status Date / Time Iodinated Contrast Media Allergy Itching Verified 06/08/24 17:31 Physical Exam Vitals: Vital Signs Temp Pulse Resp BP Pulse Ox 06/09/24 09:15 80 16 117/86 97 06/09/24 08:04 77 18 101/76 100 06/09/24 07:58 74 18 101/76 84 L 06/09/24 06:28 135 H 16 96/76 98 06/09/24 05:10 77 16 06/09/24 03:56 106 H 06/09/24 03:31 73 18 114/58 98 06/09/24 01:00 125 H 20 96/75 94 L 06/09/24 00:00 122 H 18 128/85 96 06/08/24 22:19 109 H 18 106/60 94 L 06/08/24 21:17 110 H 18 108/86 98 06/08/24 20:25 89 20 119/74 100 06/08/24 17:31 97.4 F L 85 18 95/76 97 Intake and Output 06/08/24 06/09/24 06/09/24 22:59 06:59 14:59 Other: Weight 136.078 kg Head normocephalic Neck supple Lungs clear to auscultation bilaterally no wheezing or crackles Heart regular rate and rhythm S1-S2, no rub or gallop Abdomen is soft nontender nondistended positive bowel sounds no hepatospl enomegaly Extremities +1 lower extremity edema. Bilateral lower extremity petechial rash Neuro alert and orientated to 3 Results CBC & Chem 7: 06/09/24 06:04 06/09/24 06:04 Labs: Abnormal Lab Results - Last 24 Hours (Table) 06/08/24 06/08/24 06/09/24 Range/Units 19:26 19:26 06:04 Hgb 11.4 L 11.4 L (13.0-17.5) gm/dL Hct 37.3 L 38.9 L (39.0-53.0) % MCHC 30.6 L 29.3 L (31.0-37.0) g/dL RDW 16.6 H 16.5 H (11.5-15.5) % Potassium 3.3 L (3.5-5.1) mmol/L Chloride 114 H (98-107) mmol/L Carbon Dioxide 20 L (22-30) mmol/L BUN 30 H (9-20) mg/dL Creatinine (0.66-1.25) mg/dL Glucose (74-99) mg/dL Calcium 6.4 L* (8.4-10.2) mg/dL Total Protein 4.6 L (6.3-8.2) g/dL Albumin 2.4 L (3.5-5.0) g/dL 06/09/24 Range/Units 06:04 Hgb (13.0-17.5) gm/dL Hct (39.0-53.0) % MCHC (31.0-37.0) g/dL RDW (11.5-15.5) % Potassium (3.5-5.1) mmol/L Chloride (98-107) mmol/L Carbon Dioxide (22-30) mmol/L BUN 38 H (9-20) mg/dL Creatinine 1.42 H (0.66-1.25) mg/dL Glucose 126 H (74-99) mg/dL Calcium (8.4-10.2) mg/dL Total Protein 6.1 L (6.3-8.2) g/dL Albumin (3.5-5.0) g/dL Assessment and Plan Assessment: 1. Acute on chronic systolic congestive heart failure 2. Acute kidney injury 3. History of nonischemic cardiomyopathy 4. History of AICD placement 5. History of paroxysmal atrial fibrillation 6. History of essential hypertension 7. History of hyperlipidemia 8. History of coronary artery disease with previous cardiac catheterization in 2022 DVT prophylaxis Eliquis. GI prophylaxis Protonix Cardiology and nephrology services consulted Patient started on IV Lasix Repeat labs ordered 2D echo ordered Time with Patient: Greater than 30 (Greater than 60% of the total time spent in counseling and coordination of care)
[2024-06-09 10:18] LABS: Anisocytosis Slight; Basophils % (A) 0 %; Eosinophils # (A) 0.2 k/uL (0-0.7); Eosinophils % (A) 2 %; HGB 11.7 gm/dL (13.0-17.5); Hypochromasia Marked; Lymphocytes # (A) 1.7 k/uL (1.0-4.8); Lymphocytes % (A) 21 %; MCH 26.8 pg (25.0-35.0); MCHC 30.7 g/dL (31.0-37.0); MCV 87.2 fL (80.0-100.0); Mean Platelet Volume 8.3; Monocytes # (A) 0.7 k/uL (0-1.0); Monocytes % (A) 8 %; Neutrophils # (A) 5.4 k/uL (1.3-7.7); Neutrophils % (A) 66 %; Platelet Count 282 k/uL (150-450); RBC 4.36 m/uL (4.30-5.90); RDW 16.5 % (11.5-15.5); WBC 8.1 k/uL (3.8-10.6)
[2024-06-09] MEDS: METOPROLOL SUCCINATE (ER) 25 MG TAB.ER.24H PO SCH (11:17)
--- NOTE | 2024-06-09 12:41 | P.CRDCN ---
History of Present Illness Consult date: 06/09/24 Reason for Consult (text): CHF exacerbation History of present illness: This is a 78-year-old male patient of Dr. Jay with past medical history of coronary artery disease, nonischemic cardiomyopathy status post AICD, permanent atrial fibrillation on Eliquis, valvular heart disease with aortic stenosis and regurgitation and mitral regurgitation, dilated ascending aorta as well as hypertension, dyslipidemia, overweight. We have been asked to evaluate the patient for CHF exacerbation. Patient presented to the hospital with lower extremity edema and shortness of breath. He states the main thing was lower extremity edema. He denies shortness of breath at this time. No chest pain. Blood pressure 113/85, heart rate 70, pulse ox 97% on room air. Patient is status post IV Lasix 40 mg x 2. Patient states his lower extremity edema in his feet is improved. He has no shortness of breath at the time of evaluation. -EKG: Atrial fibrillation with underlying pacemaker beats at 110 bpm -Chest x-ray: No acute process. -Laboratory studies: WBC 8.1, hemoglobin 11.7. Sodium 138, potassium 4.7, BUN 38 and creatinine 1.47. Troponin negative x 1. proBNP 3810. -Home cardiac medications: Eliquis 5 mg twice daily, Lasix 40 mg daily, Toprol- XL 50 mg daily, Entresto 24-26 mg twice daily, Aldactone 12.5 mg at bedtime. -Echocardiogram performed in the office on 03/16/2024 revealed EF of 35 to 40% with global LV hypokinesis without regional heterogeneity. Moderate left ventricular hypertrophy. Severely dilated left atrium, mildly dilated right atrium. Trace aortic regurgitation, mild to moderate aortic stenosis. Aortic valve is calcified. Moderate mitral regurgitation. Mild tricuspid regurgitation. PASP of 38 mmHg. -Lexiscan Cardiolite stress test performed in the office on 09/25/2022 revealed nondiagnostic electrocardiographic stress testing response to Lexiscan. Abnormal myocardial perfusion imaging with evidence of fixed defect of the large size and severe intensity involving the inferior wall of the left ventricle ass ociated with hypokinesia and likely represents prior myocardial infarction. No evidence of any stress-induced ischemia. Normal left ventricular systolic function. -Cardiac catheterization performed 10/25/2022 revealed mild nonobstructive coronary artery disease. Review Of Systems: At the time of my exam: CONSTITUTIONAL: Denies fever or chills. HEENT: Denies blurred vision, vision changes, or eye pain. Denies hemoptysis CARDIOVASCULAR: Denies chest pain. Denies orthopnea. Denies PND. Denies pa lpitations RESPIRATORY: Denies shortness of breath. GASTROINTESTINAL: Denies abdominal pain. Denies nausea or vomiting. HEMATOLOGIC: Denies bleeding disorders. GENITOURINARY: Denies any blood in urine. SKIN: Denies puritis. Denies rash. Physical examination: Gen: This is a 78-year-old male in no acute distress VS: reviewed HEENT: Head is atraumatic, normocephalic. Pupils equal, round. Sclerae is anicteric. NECK: Supple. No JVD. LUNGS: Clear to auscultation. No wheezes or rhonchi. No intercostal retractions. HEART: Irregular rate and rhythm. Systolic murmur. ABDOMEN: Soft No tenderness. EXTREMITIES: No pedal edema. No calf tenderness. NEUROLOGICAL: Patient is awake, alert and oriented x3. Assessment: Mild acute systolic heart failure A-fib with RVR History of CAD Nonischemic cardiomyopathy status post AICD Permanent atrial fibrillation Valvular heart disease with aortic stenosis and regurgitation, mitral regurgitation Dilated ascending aorta Hypertension Dyslipidemia Overweight Plan: Resume patient's home cardiac medications Give patient 1 additional dose of Lopressor 100 mg now and resume Toprol XL daily starting today at 11 AM Transition IV Lasix to oral 40 mg daily, home dose No need to repeat echocardiogram as this was done in March Patient is cleared for discharge from cardiology and may follow-up in the office with Dr. Jay in 1 to 2 weeks. Thank you kindly for this consultation. Nurse practitioner note has been reviewed, I agree with documented findings and plan of care. Patient was seen and examined. Past Medical History Past Medical History: Atrial Fibrillation, Heart Failure, Hypertension Additional Past Medical History / Comment(s): aortic aneurysm History of Any Multi-Drug Resistant Organisms: None Reported Past Surgical History: AICD, Bariatric Surgery, Cholecystectomy, Pacemaker Past Anesthesia/Blood Transfusion Reactions: No Reported Reaction Type of Cardiac Device: Permanent Pacemaker, AICD Device Placement Date:: 2010 Past Psychological History: No Psychological Hx Reported Smoking Status: Former smoker Past Alcohol Use History: Occasional Past Drug Use History: None Reported - Past Family History Father Family Medical History: Congestive Heart Failure (CHF), COPD, Diabetes Mellitus Mother Family Medical History: Congestive Heart Failure (CHF), Diabetes Mellitus Medications and Allergies Home Medications Medication Instructions Recorded Confirmed Type Cyclobenzaprine [Flexeril] 10 mg PO TID PRN 08/10/22 06/09/24 History Escitalopram [Lexapro] 20 mg PO HS 08/10/22 06/09/24 History Famotidine [Pepcid] 20 mg PO BID 08/10/22 06/09/24 History Furosemide [Lasix] 40 mg PO DAILY 08/10/22 06/09/24 History Apixaban [Eliquis] 5 mg PO BID tab 08/18/22 06/09/24 Rx Spironolactone [Aldactone] 12.5 mg PO HS 03/26/23 06/09/24 History Cholecalciferol [Vitamin D3 (25 50 mcg PO DAILY 06/09/24 06/09/24 History Mcg = 1000 Iu)] Metoprolol Succinate [Toprol XL] 50 mg PO DAILY 06/09/24 06/09/24 History Sacubitril/Valsartan [Entresto 24 1 tab PO BID 06/09/24 06/09/24 History mg-26 mg Tablet] Tamsulosin HCl [Flomax] 0.4 mg PO HS 06/09/24 06/09/24 History Allergies Allergy/AdvReac Type Severity Reaction Status Date / Time carvedilol [From Coreg] Allergy per PCP Verified 06/09/24 09:50 office Iodinated Contrast Media Allergy Itching Verified 06/09/24 09:50 Physical Exam Vitals: Vital Signs Temp Pulse Resp BP Pulse Ox 06/09/24 08:04 77 18 101/76 100 06/09/24 07:58 74 18 101/76 84 L 06/09/24 06:28 135 H 16 96/76 98 06/09/24 05:10 77 16 06/09/24 03:56 106 H 06/09/24 03:31 73 18 114/58 98 06/09/24 01:00 125 H 20 96/75 94 L 06/09/24 00:00 122 H 18 128/85 96 06/08/24 22:19 109 H 18 106/60 94 L 06/08/24 21:17 110 H 18 108/86 98 06/08/24 20:25 89 20 119/74 100 06/08/24 17:31 97.4 F L 85 18 95/76 97 Intake and Output 06/08/24 06/09/24 06/09/24 22:59 06:59 14:59 Other: Weight 136.078 kg Results 06/09/24 09:47 06/09/24 06:04 Cardiac Enzymes 06/08/24 06/08/24 06/09/24 Range/Units 19:26 19:26 06:04 AST 20 28 (17-59) U/L Troponin I 0.017 (0.000-0.034) ng/mL Coagulation 06/08/24 Range/Units 19:26 PT 11.5 (10.0-12.5) sec APTT 24.8 (22.0-30.0) sec CBC 06/08/24 06/09/24 Range/Units 19:26 06:04 WBC 6.1 8.5 (3.8-10.6) k/uL RBC 4.30 4.45 (4.30-5.90) m/uL Hgb 11.4 L 11.4 L (13.0-17.5) gm/dL Hct 37.3 L 38.9 L (39.0-53.0) % Plt Count 282 296 (150-450) k/uL Comprehensive Metabolic Panel 06/08/24 06/09/24 Range/Units 19:26 06:04 Sodium 138 138 (137-145) mmol/L Potassium 3.3 L 4.7 (3.5-5.1) mmol/L Chloride 114 H 101 (98-107) mmol/L Carbon Dioxide 20 L 30 (22-30) mmol/L BUN 30 H 38 H (9-20) mg/dL Creatinine 1.02 1.42 H (0.66-1.25) mg/dL Glucose 87 126 H (74-99) mg/dL Calcium 6.4 L* 8.9 (8.4-10.2) mg/dL AST 20 28 (17-59) U/L ALT 34 45 (4-49) U/L Alkaline Phosphatase 78 112 (38-126) U/L Total Protein 4.6 L 6.1 L (6.3-8.2) g/dL Albumin 2.4 L 3.6 (3.5-5.0) g/dL Current Medications Generic Name Dose Route Start Last Admin Trade Name Freq PRN Reason Stop Dose Admin Calcium Carbonate/Glycine 1,000 mg 06/08/24 22:00 06/08/24 21:24 Calcium Carbonate 500 Mg Chewable PO 1,000 mg TID SHELBY Administration Furosemide 40 mg 06/08/24 22:00 06/09/24 06:24 Furosemide 10 Mg/Ml 4 Ml Vial IV 40 mg Q8H SHELBY Administration Ibuprofen 400 mg 06/08/24 21:07 Ibuprofen 400 Mg Tab PO Q6HR PRN Mild Pain or Fever > 100.5 Miscellaneous Information 1 each 06/09/24 05:04 Potassium Replacement Protocol 1 Each Misc MISCELLANE DAILY PRN Per Protocol Protocol Naloxone HCl 0.2 mg 06/08/24 21:07 Naloxone 0.4 Mg/Ml 1 Ml Vial IV Q2M PRN Opioid Reversal Intake and Output 06/08/24 06/09/24 06/09/24 22:59 06:59 14:59 Other: Weight 136.078 kg 06/09/24 06:04 06/09/24 06:04
--- NOTE | 2024-06-09 13:36 | P.NPCON ---
History of Present Illness - Reason for Consult acute renal failure - History of Present Illness Patient is a 78-year-old male with history of hypertension, CHF with EF of 25- 30% on echocardiogram in 2022 and history of chronic A. fib. Patient is admitted to the hospital with complaints of increased leg swelling over the last 3-4 days. He also complained of shortness of breath. Serum creatininewas 1.0 on admission and increased to 1.4 today. Chest x-ray showed evidence of CHF. Patient has been started on IV Lasix. Blood pressure was low with systolic in the 90s. Patient has been voiding. Shortness of breath has improved. No history of NSAIDs Past Medical History Past Medical History: Atrial Fibrillation, Heart Failure, Hypertension Additional Past Medical History / Comment(s): aortic aneurysm History of Any Multi-Drug Resistant Organisms: None Reported Past Surgical History: AICD, Bariatric Surgery, Cholecystectomy, Pacemaker Past Anesthesia/Blood Transfusion Reactions: No Reported Reaction Type of Cardiac Device: Permanent Pacemaker, AICD Device Placement Date:: 2010 Past Psychological History: No Psychological Hx Reported Smoking Status: Former smoker Past Alcohol Use History: Occasional Past Drug Use History: None Reported - Past Family History Father Family Medical History: Congestive Heart Failure (CHF), COPD, Diabetes Mellitus Mother Family Medical History: Congestive Heart Failure (CHF), Diabetes Mellitus Medications and Allergies Home Medications Medication Instructions Recorded Confirmed Type Cyclobenzaprine [Flexeril] 10 mg PO TID PRN 08/10/22 06/09/24 History Escitalopram [Lexapro] 20 mg PO HS 08/10/22 06/09/24 History Famotidine [Pepcid] 20 mg PO BID 08/10/22 06/09/24 History Furosemide [Lasix] 40 mg PO DAILY 08/10/22 06/09/24 History Apixaban [Eliquis] 5 mg PO BID tab 08/18/22 06/09/24 Rx Spironolactone [Aldactone] 12.5 mg PO HS 03/26/23 06/09/24 History Cholecalciferol [Vitamin D3 (25 50 mcg PO DAILY 06/09/24 06/09/24 History Mcg = 1000 Iu)] Metoprolol Succinate [Toprol XL] 50 mg PO DAILY 06/09/24 06/09/24 History Sacubitril/Valsartan [Entresto 24 1 tab PO BID 06/09/24 06/09/24 History mg-26 mg Tablet] Tamsulosin HCl [Flomax] 0.4 mg PO HS 06/09/24 06/09/24 History Allergies Allergy/AdvReac Type Severity Reaction Status Date / Time carvedilol [From Coreg] Allergy per PCP Verified 06/09/24 09:50 office Iodinated Contrast Media Allergy Itching Verified 06/09/24 09:50 Physical Exam Vitals: Vital Signs Temp Pulse Resp BP Pulse Ox 06/09/24 12:01 74 16 125/75 97 06/09/24 11:19 70 16 113/85 97 06/09/24 09:15 80 16 117/86 97 06/09/24 08:04 77 18 101/76 100 06/09/24 07:58 74 18 101/76 84 L 06/09/24 06:28 135 H 16 96/76 98 06/09/24 05:10 77 16 06/09/24 03:56 106 H 06/09/24 03:31 73 18 114/58 98 06/09/24 01:00 125 H 20 96/75 94 L 06/09/24 00:00 122 H 18 128/85 96 06/08/24 22:19 109 H 18 106/60 94 L 06/08/24 21:17 110 H 18 108/86 98 06/08/24 20:25 89 20 119/74 100 06/08/24 17:31 97.4 F L 85 18 95/76 97 Intake and Output 06/08/24 06/09/24 06/09/24 22:59 06:59 14:59 Other: Weight 136.078 kg patient is awake, comfortable, no acute distress. Examination of the heart S1 and S2 Examination of the lungs bilateral breath sounds are heard Abdomen is soft obese obese nontender Examination lower extremity shows edema 1+ bilaterally DIRECTOR OF REVENUE exam grossly intact Results - Lab Results Most recent lab results Calcium 8.9 mg/dL (8.4-10.2) 06/09/24 06:04 Phosphorus 3.1 mg/dL (2.5-4.5) 06/08/24 19:26 Magnesium 1.8 mg/dL (1.6-2.3) 06/08/24 19:26 06/09/24 09:47 06/09/24 06:04 Assessment and Plan Assessment: 1. Acute kidney injury cardiorenal and associated with low blood pressure. No UA available this admission. 2. Acute on chronic CHF with decreased ejection fraction at 25-30%. 3. Volume overload 4. A. fib with RVR 5. Valvular heart disease with aortic stenosis and aortic regurgitation as well as mitral regurgitation Plan: continue with IV Lasix Check UA Continue with entresto Check ultrasound of the kidneys if renal function is worse in a.m. Maintain salt and fluid restriction. Thank you for the consultation. We will continue to follow the patient with you during his hospitalization
--- NOTE | 2024-06-09 14:13 | P.DS ---
Providers Date of admission: 06/08/24 21:08 Expected date of discharge: 06/09/24 Attending physician: Angel Butts Consults: 06/08/24 21:07 Consult Physician Routine Consulting Provider: Naman Chris Consult Reason/Comments: CHF exacerbation Do you want consulting provider notified?: Yes, Notify in am 06/09/24 08:14 Consult Physician Routine Consulting Provider: Krissy Alvarez Consult Reason/Comments: [place] and CHF Do you want consulting provider notified?: Yes Primary care physician: Lashaun Castro Hospital Course: Diagnosis on discharge: 1. Acute on chronic systolic congestive heart failure 2. Acute kidney injury 3. History of nonischemic cardiomyopathy 4. History of AICD placement 5. History of paroxysmal atrial fibrillation 6. History of essential hypertension 7. History of hyperlipidemia 8. History of coronary artery disease with previous cardiac catheterization in 2022 Hospital course: Idris Duenas is a 78 year old male patient of Dr. Castro who presented for concerns of increased edema, weight gain and shortness of breath over the past 2 days. Patient has a past medical history of CHF, atrial fibrillation in which she is maintained on Eliquis and pacemaker chest x-ray completed showing no acute cardiopulmonary disease EKG completed showing electronic rule atrial placed. Lab work revealing BNP 3810, troponin 0.017, albumin 2.4, ionized calcium 6.4, creatinine 1.02 bun 30 potassium 3.3. Upon exam patient is alert and oriented x 3. Some mild lower extremity edema noted. Patient also noted to have bilateral petechial rash on feet patient reports improvement denies itching. Patient denies chest pain. Patient does report some shortness of breath. Patient denies nausea vomiting or diarrhea. Patient denies any urinary burning or frequency. At this time cardiology and nephrology services have been consulted 2D echo has been ordered On 06/09/2024 patient was seen and examined on the telemetry floor, he is alert and oriented x 3 in no apparent distress he feels significant improvement with his breathing, his heart rate is down to 74 without any new episodes of tachycardia, he was evaluated by cardiology and was cleared for discharge. Patient was also evaluated by nephrology, a kidney ultrasound and a urine analysis were ordered, however patient was insisting on going home, he will be discharged to home today. Patient will follow-up with his primary care physician Dr. Castro within 1 week, he will also be followed by Dr. Daniels his digital media sales consultant. Further evaluation of his kidney with kidney ultrasound and urine analysis can be ordered as outpatient. Patient Condition at Discharge: Stable Plan - Discharge Summary New Discharge Prescriptions: Continue Famotidine [Pepcid] 20 mg PO BID Escitalopram [Lexapro] 20 mg PO HS Spironolactone [Aldactone] 12.5 mg PO HS Metoprolol Succinate [Toprol XL] 50 mg PO DAILY Cholecalciferol [Vitamin D3 (25 Mcg = 1000 Iu)] 50 mcg PO DAILY Sacubitril/Valsartan [Entresto 24 mg-26 mg Tablet] 1 tab PO BID Furosemide [Lasix] 40 mg PO DAILY Cyclobenzaprine [Flexeril] 10 mg PO TID PRN PRN Reason: Muscle Spasm Apixaban [Eliquis] 5 mg PO BID tab Tamsulosin HCl [Flomax] 0.4 mg PO HS Discharge Medication List Cyclobenzaprine [Flexeril] 10 mg PO TID PRN 08/10/22 [History] Escitalopram [Lexapro] 20 mg PO HS 08/10/22 [History] Famotidine [Pepcid] 20 mg PO BID 08/10/22 [History] Furosemide [Lasix] 40 mg PO DAILY 08/10/22 [History] Apixaban [Eliquis] 5 mg PO BID tab 08/18/22 [Rx] Spironolactone [Aldactone] 12.5 mg PO HS 03/26/23 [History] Cholecalciferol [Vitamin D3 (25 Mcg = 1000 Iu)] 50 mcg PO DAILY 06/09/24 [History] Metoprolol Succinate [Toprol XL] 50 mg PO DAILY 06/09/24 [History] Sacubitril/Valsartan [Entresto 24 mg-26 mg Tablet] 1 tab PO BID 06/09/24 [History] Tamsulosin HCl [Flomax] 0.4 mg PO HS 06/09/24 [History] Follow up Appointment(s)/Referral(s): Lashaun Castro MD [Primary Care Provider] - 1-2 days Terrance Jay MD [STAFF PHYSICIAN] - 1 Week
[2024-06-09 15:18] VITALS: BP 114/49; PULSE 100; TEMP 97.5
[2024-06-09 15:45] LABS: ALT 42 U/L (10-49); AST 23 U/L (14-35); Albumin 3.6 g/dL (3.8-4.9); Albumin/Globulin Ratio 1.57 Ratio (1.60-3.17); Alkaline Phosphatase 118 U/L (41-126); Blood Urea Nitrogen 34.2 mg/dL (9.0-27.0); Calcium 8.9 mg/dL (8.7-10.3); Chloride 101 mmol/L (96-109); Globulin 2.3 g/dL (1.6-3.3); Glucose 112 mg/dL (70-110); Potassium 4.6 mmol/L (3.5-5.5); Sodium 137 mmol/L (135-145); Total Bilirubin 0.5 mg/dL (0.3-1.2); Total Protein 5.9 g/dL (6.2-8.2)
[2024-06-10] MEDS ORDERED: PANTOPRAZOLE 40 MG TABLET PO SCH (07:30)
[2024-06-10] MEDS ORDERED: FUROSEMIDE 40 MG TAB PO SCH (09:00)
== END 2024-06-09 15:20 | disposition home or self-care (01) ==
LOC: EC 16:57 → 6NMEDSUR 21:08
PROVIDERS: ADMIT Internal Medicine; ATTEND Internal Medicine
DX: I11.0 Hypertensive heart disease with heart failure (principal); I50.23 Acute on chronic systolic (congestive) heart failure; E83.51 Hypocalcemia; N17.9 Acute kidney failure, unspecified; I48.21 Permanent atrial fibrillation; I08.0 Rheumatic disorders of both mitral and aortic valves; I42.8 Other cardiomyopathies; I25.10 Atherosclerotic heart disease of native coronary artery without angina pectoris; E78.5 Hyperlipidemia, unspecified; I77.819 Aortic ectasia, unspecified site; E66.3 Overweight; Z68.35 Body mass index [BMI] 35.0-35.9, adult; Z87.891 Personal history of nicotine dependence; Z95.810 Presence of automatic (implantable) cardiac defibrillator; Z79.01 Long term (current) use of anticoagulants; Z79.82 Long term (current) use of aspirin; Z79.899 Other long term (current) drug therapy; Z82.49 Family history of ischemic heart disease and other diseases of the circulatory system
CPT/HCPCS: 96376; 96374; 99285; 36415; 93005; 83880; 80053 ×2; 82330; 83735; 84100; 84484; 85025 ×2; 85610; 85730; 71046; G0378 ×2; J1940 ×2; J0613

== ENCOUNTER 2024-06-15 12:01 | Inpatient (IN) | payer MEDICARE ==
--- NOTE | 2024-06-15 12:55 | ED ---
SOB HPI - General Source: patient, RN notes reviewed Mode of arrival: ambulatory Limitations: no limitations - History of Present Illness MD Complaint: shortness of breath <Maria Eugenia Giang - Last Filed: 06/15/24 12:54> - General Source: patient, RN notes reviewed Limitations: no limitations <Chetan Bales - Last Filed: 06/15/24 17:49> - General Chief Complaint: Shortness of Breath Stated Complaint: SOB,Feet swelling Time Seen by Provider: 06/15/24 12:45 - History of Present Illness Initial Comments: Quick Note: This is a 78-year-old male who presents to the emergency department for shortness of breath. Patient was admitted here last week for a CHF exacerbation. Symptoms were under control when he was discharged home. However, 3 days ago he started to have increasing shortness of breath and swelling in his feet again. Family states that the feet are now blistering and weeping as a result of the swelling, causing a lot of discomfort. (Maria Eugenia Giang) Patient is a 78-year-old male present to the emergency department with concerns with difficulty breathing. Symptoms have progressed over the past few days. Patient has orthopnea and exertional dyspnea. Patient has mild indigestion in his chest. Patient has felt his heart rate increased. Patient was recently in the hospital with CHF. Patient does have some leg swelling. No cough. No fever (Chetan Bales) - Related Data Home Medications Medication Instructions Recorded Confirmed Cyclobenzaprine [Flexeril] 10 mg PO TID PRN 08/10/22 06/15/24 Escitalopram [Lexapro] 20 mg PO HS 08/10/22 06/15/24 Famotidine [Pepcid] 20 mg PO BID 08/10/22 06/15/24 Furosemide [Lasix] 40 mg PO DAILY 08/10/22 06/15/24 Spironolactone [Aldactone] 25 mg PO HS 03/26/23 06/15/24 Cholecalciferol [Vitamin D3 (25 50 mcg PO DAILY 06/09/24 06/15/24 Mcg = 1000 Iu)] Metoprolol Succinate [Toprol XL] 50 mg PO DAILY 06/09/24 06/15/24 Sacubitril/Valsartan [Entresto 24 1 tab PO BID 06/09/24 06/15/24 mg-26 mg Tablet] Tamsulosin HCl [Flomax] 0.4 mg PO HS 06/09/24 06/15/24 Previous Rx's Medication Instructions Recorded Apixaban [Eliquis] 5 mg PO BID tab 08/18/22 Allergies Allergy/AdvReac Type Severity Reaction Status Date / Time carvedilol [From Coreg] Allergy per PCP Verified 06/15/24 16:29 office Iodinated Contrast Media Allergy Itching Verified 06/15/24 16:29 Review of Systems ROS Other: All systems not noted in ROS Statement are negative. <Maria Eugenia Giang - Last Filed: 06/15/24 12:54> ROS Other: All systems not noted in ROS Statement are negative. Constitutional: Denies: fever Eyes: Denies: eye pain ENT: Denies: ear pain Respiratory: Reports: as per HPI, dyspnea Cardiovascular: Reports: as per HPI, dyspnea on exertion, orthopnea, edema Musculoskeletal: Denies: back pain <Chetan Bales - Last Filed: 06/15/24 17:49> ROS Statement: Those systems with pertinent positive or pertinent negative responses have been documented in the HPI. Past Medical History Past Medical History: Atrial Fibrillation, Heart Failure, Hypertension Additional Past Medical History / Comment(s): aortic aneurysm History of Any Multi-Drug Resistant Organisms: None Reported Past Surgical History: AICD, Bariatric Surgery, Cholecystectomy, Pacemaker Past Anesthesia/Blood Transfusion Reactions: No Reported Reaction Type of Cardiac Device: Permanent Pacemaker, AICD Device Placement Date:: 2010 Past Psychological History: No Psychological Hx Reported Smoking Status: Former smoker Past Alcohol Use History: Occasional Past Drug Use History: None Reported - Past Family History Father Family Medical History: Congestive Heart Failure (CHF), COPD, Diabetes Mellitus Mother Family Medical History: Congestive Heart Failure (CHF), Diabetes Mellitus <Maria Eugenia Giang - Last Filed: 06/15/24 12:54> General Exam Limitations: no limitations <Maria Eugenia Giang - Last Filed: 06/15/24 12:54> Limitations: no limitations General appearance: alert Head exam: Present: normocephalic Eye exam: Present: normal appearance Neck exam: Present: normal inspection Respiratory exam: Present: normal lung sounds bilaterally Cardiovascular Exam: Present: tachycardia, normal heart sounds Expanded Peripheral pulses: 2+: Dorsalis Pedis (R), Dorsalis Pedis (L) GI/Abdominal exam: Present: soft. Absent: tenderness Extremities exam: Present: pedal edema. Absent: calf tenderness Neurological exam: Present: alert Psychiatric exam: Present: normal affect, normal mood Skin exam: Present: cyanosis (Cyanotic appearance of bilateral feet, mostly distally) <Chetan Bales - Last Filed: 06/15/24 17:49> - General Exam Comments Initial Comments: Visual Physical Exam Vital signs reviewed General: Well-appearing, nontoxic, no acute distress. Head: Normocephalic, atraumatic Eyes: PERRLA, EOMI ENT: Airway patent Chest: Nonlabored breathing Skin: No visual rash, normal skin tone Neuro: Alert and oriented 3 Musculoskeletal: No gross abnormalities (Maria Eugenia Giang) Course Vital Signs 06/15/24 06/15/24 06/15/24 12:48 14:42 16:23 Temperature 97.9 F Pulse Rate 107 H 141 H 137 H Respiratory 20 18 20 Rate Blood Pressure 115/83 105/82 101/70 O2 Sat by Pulse 97 98 98 Oximetry 06/15/24 06/15/24 16:48 17:26 Temperature Pulse Rate 135 H 138 H Respiratory 18 21 Rate Blood Pressure O2 Sat by Pulse 96 94 L Oximetry Medical Decision Making <Maria Eugenia Giang - Last Filed: 06/15/24 12:54> - Lab Data Result diagrams: 06/15/24 13:54 06/15/24 13:54 <Chetan Bales - Last Filed: 06/15/24 17:49> - Medical Decision Making I performed the QuickNote portion of this chart. Signed Maria Eugenia Giang PA-C. (Maria Eugenia Giang) EKG interpreted by myself shows sinus tachycardia with rate of 139. Left axis. Normal intervals. Right bundle branch block. Inferior Q waves. T wave inversion in V3 V4. Repeat EKG interpreted by myself shows narrow complex tachycardia with a rate of 137 however there is some [id number] abnormality which raises suspicion for A- fib. Left axis. QRS 129. Right bundle branch block. Nonspecific ST-T Was pt. sent in by a medical professional or institution (, PA, INSULATION HOSEMAN, urgent care, hospital, or fdc...) When possible be specific @ -No Did you speak to anyone other than the patient for history (EMS, parent, family, police, friend...)? What history was obtained from this source @ -No Did you review nursing and triage notes (agree or disagree)? Why? @ -I reviewed and agree with nursing and triage notes Were old charts reviewed (outside hosp., previous admission, EMS record, old EKG, old radiological studies, urgent care reports/EKG's, fdc records)? Report findings @ -Previous admission reviewed Differential Diagnosis (chest pain, altered mental status, abdominal pain women, abdominal pain men, vaginal bleeding, weakness, fever, dyspnea, syncope, headache, dizziness, GI bleed, back pain, seizure, CVA, palpatations, mental health, musculoskeletal)? @ -Differential Dyspnea: Coronary syndrome, arrhythmia, tamponade, asthma, COPD, pulmonary embolism, pneumonia, pneumothorax, pulmonary effusion, anaphylaxis, diabetic ketoacidosis, flailed chest, pulmonary contusion, diaphragmatic rupture, anemia, neuromuscular, this is not meant to be an all-inclusive list. EKG interpreted by me (3pts min.). @ -As above X-rays interpreted by me (1pt min.). @ -Chest x-ray does not reveal acute abnormality CT interpreted by me (1pt min.). @ -None done U/S interpreted by me (1pt. min.). @ -None done What testing was considered but not performed or refused? (CT, X-rays, U/S, labs)? Why? @ -Considered CT scan of the chest however patient is already on anticoagulation What meds were considered but not given or refused? Why? @ -None Did you discuss the management of the patient with other professionals (professionals i.e. , PA, INSULATION HOSEMAN, lab, RT, psych nurse, social worker delinquency prevention, paddle dyeing machine operator, teacher, licensing officer, case briefer)? Give summary @ -Case was discussed with Dr. Butts who will admit covering Dr. Berry Was smoking cessation discussed for >3mins.? @ -No Was critical care preformed (if so, how long)? @ -31 minutes critical care time Were there social determinants of health that impacted care today? How? (Homelessness, low income, unemployed, alcoholism, drug addiction, transportation, low edu. Level, literacy, decrease access to med. care, skilled nursing, rehab)? @ -No Was there de-escalation of care discussed even if they declined (Discuss DNR or withdrawal of care, Hospice)? DNR status @ -No What co-morbidities impacted this encounter? (DM, HTN, Smoking, COPD, CAD, Cancer, CVA, ARF, Chemo, Hep., AIDS, mental health diagnosis, sleep apnea, morbid obesity)? @ -History of CHF and A-fib Was patient admitted / discharged? Hospital course, mention meds given and route, prescriptions, significant lab abnormalities, going to OR and other pertinent info. @ -Patient presents with dyspnea and tachycardia. Patient is placed on Cardizem drip to help with rate control. Patient reevaluation and resting comfortably in bed only with mild symptoms however heart rate remains high. Patient and family updated. Patient will be admitted with cardiac consult. Admission orders written. Undiagnosed new problem with uncertain prognosis? @ -No Drug Therapy requiring intensive monitoring for toxicity (Heparin, Nitro, Insulin, Cardizem)? @ -Cardizem drip Were any procedures done? @ -No Diagnosis/symptom? @ -A-fib with RVR, dyspnea Acute, or Chronic, or Acute on Chronic? @ -Acute, acute Uncomplicated (without systemic symptoms) or Complicated (systemic symptoms)? @ -Default Side effects of treatment? @ -No Exacerbation, Progression, or Severe Exacerbation? @ -No Poses a threat to life or bodily function? How? (Chest pain, [place], NH, pneumonia, PE, COPD, DKA, ARF, appy, cholecystitis, CVA, Diverticulitis, Homicidal, Suicidal, threat to staff... and all critical care pts) @ -Threat to cardiac function (Chetan Bales) - Lab Data Lab Results 06/15/24 06/15/24 06/15/24 Range/Units 13:54 13:54 13:54 WBC 8.0 (3.8-10.6) k/uL RBC 4.40 (4.30-5.90) m/uL Hgb 11.6 L (13.0-17.5) gm/dL Hct 37.5 L (39.0-53.0) % MCV 85.2 (80.0-100.0) fL MCH 26.4 (25.0-35.0) pg MCHC 31.0 (31.0-37.0) g/dL RDW 16.5 H (11.5-15.5) % Plt Count 243 (150-450) k/uL MPV 8.3 Neutrophils % 70 % Lymphocytes % 19 % Monocytes % 8 % Eosinophils % 2 % Basophils % 1 % Neutrophils # 5.6 (1.3-7.7) k/uL Lymphocytes # 1.5 (1.0-4.8) k/uL Monocytes # 0.6 (0-1.0) k/uL Eosinophils # 0.1 (0-0.7) k/uL Basophils # 0.0 (0-0.2) k/uL Hypochromasia Marked Anisocytosis Slight PT 12.3 (10.0-12.5) sec INR 1.1 (<1.2) APTT 24.3 (22.0-30.0) sec D-Dimer (<0.60) mg/L FEU Sodium 136 L (137-145) mmol/L Potassium 5.3 H (3.5-5.1) mmol/L Chloride 104 (98-107) mmol/L Carbon Dioxide 24 (22-30) mmol/L Anion Gap 8 mmol/L BUN 45 H (9-20) mg/dL Creatinine 1.38 H (0.66-1.25) mg/dL Est GFR (CKD-EPI)AfAm 56 (>60 ml/min/1.73 sqM) Est GFR (CKD-EPI)NonAf 48 (>60 ml/min/1.73 sqM) Glucose 148 H (74-99) mg/dL Lactic Ac Sepsis Rflx Plasma Lactic Acid William (0.7-2.0) mmol/L Calcium 9.1 (8.4-10.2) mg/dL Magnesium 2.2 (1.6-2.3) mg/dL Total Bilirubin 0.8 (0.2-1.3) mg/dL AST 44 (17-59) U/L ALT 32 (4-49) U/L Alkaline Phosphatase 91 (38-126) U/L Troponin I (0.000-0.034) ng/mL NT-Pro-B Natriuret Pep 6110 pg/mL Total Protein 6.1 L (6.3-8.2) g/dL Albumin 3.5 (3.5-5.0) g/dL Influenza Type A (PCR) (Not Detectd) Influenza Type B (PCR) (Not Detectd) RSV (PCR) (Not Detectd) SARS-CoV-2 (PCR) (Not Detectd) 06/15/24 06/15/24 06/15/24 Range/Units 13:54 13:54 15:12 WBC (3.8-10.6) k/uL RBC (4.30-5.90) m/uL Hgb (13.0-17.5) gm/dL Hct (39.0-53.0) % MCV (80.0-100.0) fL MCH (25.0-35.0) pg MCHC (31.0-37.0) g/dL RDW (11.5-15.5) % Plt Count (150-450) k/uL MPV Neutrophils % % Lymphocytes % % Monocytes % % Eosinophils % % Basophils % % Neutrophils # (1.3-7.7) k/uL Lymphocytes # (1.0-4.8) k/uL Monocytes # (0-1.0) k/uL Eosinophils # (0-0.7) k/uL Basophils # (0-0.2) k/uL Hypochromasia Anisocytosis PT (10.0-12.5) sec INR (<1.2) APTT (22.0-30.0) sec D-Dimer (<0.60) mg/L FEU Sodium (137-145) mmol/L Potassium (3.5-5.1) mmol/L Chloride (98-107) mmol/L Carbon Dioxide (22-30) mmol/L Anion Gap mmol/L BUN (9-20) mg/dL Creatinine (0.66-1.25) mg/dL Est GFR (CKD-EPI)AfAm (>60 ml/min/1.73 sqM) Est GFR (CKD-EPI)NonAf (>60 ml/min/1.73 sqM) Glucose (74-99) mg/dL Lactic Ac Sepsis Rflx Y Plasma Lactic Acid William 2.2 H* (0.7-2.0) mmol/L Calcium (8.4-10.2) mg/dL Magnesium (1.6-2.3) mg/dL Total Bilirubin (0.2-1.3) mg/dL AST (17-59) U/L ALT (4-49) U/L Alkaline Phosphatase (38-126) U/L Troponin I <0.012 (0.000-0.034) ng/mL NT-Pro-B Natriuret Pep pg/mL Total Protein (6.3-8.2) g/dL Albumin (3.5-5.0) g/dL Influenza Type A (PCR) (Not Detectd) Influenza Type B (PCR) (Not Detectd) RSV (PCR) (Not Detectd) SARS-CoV-2 (PCR) (Not Detectd) 06/15/24 06/15/24 Range/Units 15:16 15:16 WBC (3.8-10.6) k/uL RBC (4.30-5.90) m/uL Hgb (13.0-17.5) gm/dL Hct (39.0-53.0) % MCV (80.0-100.0) fL MCH (25.0-35.0) pg MCHC (31.0-37.0) g/dL RDW (11.5-15.5) % Plt Count (150-450) k/uL MPV Neutrophils % % Lymphocytes % % Monocytes % % Eosinophils % % Basophils % % Neutrophils # (1.3-7.7) k/uL Lymphocytes # (1.0-4.8) k/uL Monocytes # (0-1.0) k/uL Eosinophils # (0-0.7) k/uL Basophils # (0-0.2) k/uL Hypochromasia Anisocytosis PT 11.9 (10.0-12.5) sec INR 1.1 (<1.2) APTT 23.3 (22.0-30.0) sec D-Dimer 1.13 H (<0.60) mg/L FEU Sodium (137-145) mmol/L Potassium (3.5-5.1) mmol/L Chloride (98-107) mmol/L Carbon Dioxide (22-30) mmol/L Anion Gap mmol/L BUN (9-20) mg/dL Creatinine (0.66-1.25) mg/dL Est GFR (CKD-EPI)AfAm (>60 ml/min/1.73 sqM) Est GFR (CKD-EPI)NonAf (>60 ml/min/1.73 sqM) Glucose (74-99) mg/dL Lactic Ac Sepsis Rflx Plasma Lactic Acid William (0.7-2.0) mmol/L Calcium (8.4-10.2) mg/dL Magnesium (1.6-2.3) mg/dL Total Bilirubin (0.2-1.3) mg/dL AST (17-59) U/L ALT (4-49) U/L Alkaline Phosphatase (38-126) U/L Troponin I (0.000-0.034) ng/mL NT-Pro-B Natriuret Pep pg/mL Total Protein (6.3-8.2) g/dL Albumin (3.5-5.0) g/dL Influenza Type A (PCR) Not Detected (Not Detectd) Influenza Type B (PCR) Not Detected (Not Detectd) RSV (PCR) Not Detected (Not Detectd) SARS-CoV-2 (PCR) Not Detected (Not Detectd) Critical Care Time Critical Care Time: Yes <Chetan Bales - Last Filed: 06/15/24 17:49> Disposition <Maria Eugenia Giang - Last Filed: 06/15/24 12:54> Is patient prescribed a controlled substance at d/c from ED?: No Time of Disposition: 17:49 <Chetan Bales - Last Filed: 06/15/24 17:49> Clinical Impression: Atrial fibrillation with RVR Disposition: ADMITTED IP TO THIS HOSP Referrals: Lashaun Castro MD [Primary Care Provider] - 1-2 days
--- NOTE | 2024-06-15 13:55 | XR ---
EXAMINATION TYPE: XR chest 2V DATE OF EXAM: 06/15/2024 1:27 PM COMPARISON: 06/08/2024 CLINICAL INDICATION: Male, 78 years old with history of difficulty breathing, TECHNIQUE: Frontal and lateral views of the chest are obtained. FINDINGS: There is no focal air space opacity, pleural effusion, or pneumothorax seen. The cardiac silhouette size is within normal limits. The osseous structures are intact. IMPRESSION: No acute cardiopulmonary process. [facility], , 06/15/2024 1:52 PM
[2024-06-15 14:34] LABS: Anisocytosis Slight; Basophils % (A) 1 %; Eosinophils # (A) 0.1 k/uL (0-0.7); Eosinophils % (A) 2 %; HCT 37.5 % (39.0-53.0); HGB 11.6 gm/dL (13.0-17.5); Hypochromasia Marked; Lymphocytes # (A) 1.5 k/uL (1.0-4.8); Lymphocytes % (A) 19 %; MCH 26.4 pg (25.0-35.0); MCV 85.2 fL (80.0-100.0); Mean Platelet Volume 8.3; Monocytes # (A) 0.6 k/uL (0-1.0); Monocytes % (A) 8 %; Neutrophils # (A) 5.6 k/uL (1.3-7.7); Neutrophils % (A) 70 %; Platelet Count 243 k/uL (150-450); RDW 16.5 % (11.5-15.5)
[2024-06-15 14:42] LABS: INR 1.1 (<1.2); Partial Thromboplastin Time 24.3 sec (22.0-30.0); Prothrombin Time 12.3 sec (10.0-12.5)
[2024-06-15 14:47] LABS: ALT 32 U/L (4-49); African American GFR (CKD) 56 (>60 ml/min/1.73 sqM); Albumin 3.5 g/dL (3.5-5.0); Anion Gap 8 mmol/L; Blood Urea Nitrogen 45 mg/dL (9-20); Calcium 9.1 mg/dL (8.4-10.2); Carbon Dioxide 24 mmol/L (22-30); Chloride 104 mmol/L (98-107); Glucose 148 mg/dL (74-99); Non-African American GFR(CKD) 48 (>60 ml/min/1.73 sqM); Sodium 136 mmol/L (137-145); Total Bilirubin 0.8 mg/dL (0.2-1.3); Total Protein 6.1 g/dL (6.3-8.2)
[2024-06-15 14:53] LABS: AST 44 U/L (17-59); Alkaline Phosphatase 91 U/L (38-126); Magnesium 2.2 mg/dL (1.6-2.3); Potassium 5.3 mmol/L (3.5-5.1)
[2024-06-15 14:55] LABS: NT-Pro-B-Type Natriuretic Pept 6110 pg/mL
[2024-06-15 15:43] LABS: INR 1.1 (<1.2); Partial Thromboplastin Time 23.3 sec (22.0-30.0); Prothrombin Time 11.9 sec (10.0-12.5)
[2024-06-15] MEDS: DILTIAZEM DRIP BOLUS FROM BAG 1 MG SOLN IV ONE (16:42)
[2024-06-15] MEDS: DILTIAZEM 125 MG in SODIUM CHLORIDE 0.9% 100 ML IV SCH (16:43)
[2024-06-15] MEDS: DILTIAZEM 5 MG/ML 5 ML VIAL IVP STA (17:36)
[2024-06-15] MEDS ORDERED: NALOXONE 0.4 MG/ML 1 ML VIAL IV PRN (17:49)
[2024-06-15] MEDS: TAMSULOSIN 0.4 MG CAP.ER.24H PO SCH (20:09)
[2024-06-15] MEDS: ESCITALOPRAM 20 MG TAB PO SCH (20:09)
[2024-06-15] MEDS: APIXABAN 5 MG TAB PO SCH (20:09)
[2024-06-15] MEDS: SACUBITRIL/VALSARTAN 24 MG-26 MG TABLET PO SCH (20:09)
[2024-06-15] MEDS: FAMOTIDINE 20 MG TAB PO SCH (20:10)
[2024-06-15] MEDS: SPIRONOLACTONE 25 MG TAB PO SCH (20:10)
[2024-06-16] MEDS: ACETAMINOPHEN TAB 325 MG TAB PO PRN (03:56)
[2024-06-16 06:54] LABS: Anisocytosis Slight; Basophils % (A) 0 %; Eosinophils # (A) 0.1 k/uL (0-0.7); Eosinophils % (A) 2 %; HCT 34.6 % (39.0-53.0); HGB 10.8 gm/dL (13.0-17.5); Hypochromasia Moderate; Lymphocytes # (A) 1.8 k/uL (1.0-4.8); Lymphocytes % (A) 25 %; MCH 26.4 pg (25.0-35.0); MCHC 31.3 g/dL (31.0-37.0); MCV 84.2 fL (80.0-100.0); Mean Platelet Volume 8.7; Monocytes # (A) 0.6 k/uL (0-1.0); Monocytes % (A) 9 %; Neutrophils # (A) 4.4 k/uL (1.3-7.7); Neutrophils % (A) 62 %; Platelet Count 210 k/uL (150-450); RBC 4.11 m/uL (4.30-5.90); RDW 16.6 % (11.5-15.5); WBC 7.1 k/uL (3.8-10.6)
[2024-06-16 07:20] LABS: ALT 28 U/L (4-49); AST 26 U/L (17-59); African American GFR (CKD) 56 (>60 ml/min/1.73 sqM); Albumin 3.1 g/dL (3.5-5.0); Alkaline Phosphatase 102 U/L (38-126); Anion Gap 7 mmol/L; Blood Urea Nitrogen 44 mg/dL (9-20); Calcium 8.7 mg/dL (8.4-10.2); Carbon Dioxide 22 mmol/L (22-30); Chloride 104 mmol/L (98-107); Glucose 121 mg/dL (74-99); Non-African American GFR(CKD) 48 (>60 ml/min/1.73 sqM); Potassium 4.9 mmol/L (3.5-5.1); Sodium 133 mmol/L (137-145); Total Bilirubin 0.8 mg/dL (0.2-1.3); Total Protein 5.5 g/dL (6.3-8.2)
[2024-06-16] MEDS: FUROSEMIDE 40 MG TAB PO SCH (08:50)
[2024-06-16] MEDS: SACUBITRIL/VALSARTAN 24 MG-26 MG TABLET PO SCH (08:50)
[2024-06-16] MEDS: CHOLECALCIFEROL 25 MCG (1000 IU) TABLET PO SCH (08:50)
[2024-06-16] MEDS: METOPROLOL SUCCINATE (ER) 50 MG TAB.ER.24H PO SCH (08:51)
[2024-06-16] MEDS: DEXTROSE 5% IN WATER 100 ML with AMIODARONE 150 MG IV ONE (09:01)
[2024-06-16] MEDS: AMIODARONE 360 MG in DEXTROSE 5% IN WATER 200 ML IV ONE (09:18)
--- NOTE | 2024-06-16 09:22 | P.HPIM ---
History of Present Illness H&P Date: 06/16/24 this is a 78-year-old male patient of Dr. Castro who presented with complaints of increased shortness of breath and increased lower extremity swelling over the past few dayspatient was recently here and discharged on 06/09/2024 for acute CHF exacerbation. Patient reports improvement at that time but states proximally 3 days after returning home had increased issues.chest x-ray completed showing no acute cardiopulmonary process. EKG completed showingsinus tachycardia right bundle branch block heart rate 137. Patient has a past medical history of atrial fibrillation maintained on eliquis. Additional medical history includes heart failure, hypertension, aortic aneurysm, AICD, cholecystectomy.laboratory showing WBC 7.1, hemoglobin 10.8, creatinine 1.38, troponin negative,BNP 6110. D-dimer 1.13. Covid in influenza and RSV negative. In ER patient was initially started on IV Cardizem.patient has been evaluated by urology services patient is being switched to IV amiodarone. VQ scan also ordered due to elevated d-dimer. This time patient denies chest pain. Patient reports some shortness breath. Patient denies nausea vomiting or diarrhea. Patient denies any urinary burning or frequency.current vital signs temp 97.6, heart rate 138, respiratory rate 20, blood pressure 125/79 with pulse of 93% on 2 L Review of Systems visit for HPI otherwise unremarkable Past Medical History Past Medical History: Atrial Fibrillation, Heart Failure, Hypertension Additional Past Medical History / Comment(s): aortic aneurysm History of Any Multi-Drug Resistant Organisms: None Reported Past Surgical History: AICD, Bariatric Surgery, Cholecystectomy, Pacemaker Past Anesthesia/Blood Transfusion Reactions: No Reported Reaction Type of Cardiac Device: Permanent Pacemaker, AICD Device Placement Date:: 2010 Past Psychological History: No Psychological Hx Reported Smoking Status: Former smoker Past Alcohol Use History: Occasional Past Drug Use History: None Reported - Past Family History Father Family Medical History: Congestive Heart Failure (CHF), COPD, Diabetes Mellitus Mother Family Medical History: Congestive Heart Failure (CHF), Diabetes Mellitus Medications and Allergies Home Medications Medication Instructions Recorded Confirmed Type Cyclobenzaprine [Flexeril] 10 mg PO TID PRN 08/10/22 06/15/24 History Escitalopram [Lexapro] 20 mg PO HS 08/10/22 06/15/24 History Famotidine [Pepcid] 20 mg PO BID 08/10/22 06/15/24 History Furosemide [Lasix] 40 mg PO DAILY 08/10/22 06/15/24 History Apixaban [Eliquis] 5 mg PO BID tab 08/18/22 06/15/24 Rx Spironolactone [Aldactone] 25 mg PO HS 03/26/23 06/15/24 History Cholecalciferol [Vitamin D3 (25 50 mcg PO DAILY 06/09/24 06/15/24 History Mcg = 1000 Iu)] Metoprolol Succinate [Toprol XL] 50 mg PO DAILY 06/09/24 06/15/24 History Sacubitril/Valsartan [Entresto 24 1 tab PO BID 06/09/24 06/15/24 History mg-26 mg Tablet] Tamsulosin HCl [Flomax] 0.4 mg PO HS 06/09/24 06/15/24 History Allergies Allergy/AdvReac Type Severity Reaction Status Date / Time carvedilol [From Coreg] Allergy per PCP Verified 06/15/24 16:29 office Iodinated Contrast Media Allergy Itching Verified 06/15/24 16:29 Physical Exam Vitals: Vital Signs Temp Pulse Pulse Resp BP BP Pulse Ox 06/16/24 08:54 20 06/16/24 08:40 97 F L 138 H 20 125/79 93 L 06/16/24 03:06 97.6 F 142 H 20 85/66 97 06/16/24 02:00 140 H 06/15/24 22:57 97.8 F 138 H 18 93/60 96 06/15/24 20:00 97.6 F 140 H 20 95/77 98 06/15/24 18:36 97.5 F L 140 H 16 95/78 96 06/15/24 17:42 140 H 18 97 06/15/24 17:26 138 H 21 94 L 06/15/24 16:48 135 H 18 96 06/15/24 16:23 137 H 20 101/70 98 06/15/24 14:42 141 H 18 105/82 98 06/15/24 12:48 97.9 F 107 H 20 115/83 97 Intake and Output 06/15/24 06/16/24 06/16/24 22:59 06:59 14:59 Intake Total 7.083 498.167 Balance 7.083 498.167 Intake: Intake, IV Titration 7. 98.167 Amount Diltiazem 125 mg In 7. 98.167 Sodium Chloride 0.9% 100 ml @ 5 MG/HR 5 mls/hr IV .Q24H [facility] Rx#:[id number] Oral 400 Other: Voiding Method Toilet Toilet Urinal Urinal # Voids 2 # Bowel Movements 1 Head normocephalic Neck supple Lungs clear to auscultation bilaterally no wheezing or crackles Heartirregular heart rate no nature fibrillation Abdomen is soft nontender nondistended positive bowel sounds no hepatosplenomegaly Extremities no edema Neuro alert and orientated to 3 Results CBC & Chem 7: 06/16/24 05:55 06/16/24 05:55 Labs: Abnormal Lab Results - Last 24 Hours (Table) 06/15/24 06/15/24 06/15/24 Range/Units 13:54 13:54 13:54 RBC (4.30-5.90) m/uL Hgb 11.6 L (13.0-17.5) gm/dL Hct 37.5 L (39.0-53.0) % RDW 16.5 H (11.5-15.5) % D-Dimer (<0.60) mg/L FEU Sodium 136 L (137-145) mmol/L Potassium 5.3 H (3.5-5.1) mmol/L BUN 45 H (9-20) mg/dL Creatinine 1.38 H (0.66-1.25) mg/dL Glucose 148 H (74-99) mg/dL Plasma Lactic Acid William 2.2 H* (0.7-2.0) mmol/L Total Protein 6.1 L (6.3-8.2) g/dL Albumin (3.5-5.0) g/dL 06/15/24 06/16/24 06/16/24 Range/Units 15:16 05:55 05:55 RBC 4.11 L (4.30-5.90) m/uL Hgb 10.8 L (13.0-17.5) gm/dL Hct 34.6 L (39.0-53.0) % RDW 16.6 H (11.5-15.5) % D-Dimer 1.13 H (<0.60) mg/L FEU Sodium 133 L (137-145) mmol/L Potassium (3.5-5.1) mmol/L BUN 44 H (9-20) mg/dL Creatinine 1.38 H (0.66-1.25) mg/dL Glucose 121 H (74-99) mg/dL Plasma Lactic Acid William (0.7-2.0) mmol/L Total Protein 5.5 L (6.3-8.2) g/dL Albumin 3.1 L (3.5-5.0) g/dL Assessment and Plan Assessment: 1. Shortness breath secondary to A. fib with RVR 2. Elevated d-dimer. VQ scan ordered 3. Acute on chronic systolic congestive heart failure 4. History of nonischemic cardiomyopathy 5. History of AICD placement 6. History of proximal atrial fibrillation 7. History of hyperlipidemia 8. History of essential hypertension 9. History of coronary artery disease with previous cardiac catheterization in 2022 DVT prophylaxis eliquis. GI prophylaxis Pepcid Cardiology service is consulted VQ scan ordered Patient maintained on IV amiodarone Repeat labs ordered Time with Patient: Greater than 30 (Greater than 60% of the total time spent in counseling and coordination of care)
--- NOTE | 2024-06-16 10:25 | P.CRDCN ---
History of Present Illness Consult date: 06/16/24 Reason for Consult (text): A-fib with RVR History of present illness: This is a 78-year-old male patient of Dr. Jay with past medical history of coronary artery disease, nonischemic cardiomyopathy status post AICD with known EF of 35 to 40%, permanent atrial fibrillation on Eliquis, valvular heart disease with aortic stenosis and regurgitation and mitral regurgitation, dilated ascending aorta as well as hypertension, dyslipidemia, overweight. We have been asked to evaluate the patient for A-fib with RVR. Patient presented to the hospital with shortness of breath. Patient gives history that he received the flu vaccine, COVID-19 and RSV immunizations 2 weeks ago. About 1 week after that he started having edema in his 1 leg and he was hospitalized on 06/08 and was discharged home the next day. He states that after he left the by the next morning he started to have swelling of the other leg. He also states he has more shortness of breath, orthopnea and weight gain. No chest pain. He states that then his foot started getting sore and he had inability to walk. He states he has been following a no added salt diet and he has been taking all of his medications as directed. Nursing states that patient has had some episodes of confusions while here and has removed all of his cardiac leads. Blood pressure 85/66, heart rate 142, pulse ox 97% on 2 L nasal cannula. Patient is seen today in the emergency center waiting for a bed on the cardiac stepdown unit. Patient has been started on Cardizem bolus of 5 mg followed by drip at 5 mg/h. -EKG: Atrial fibrillation at 139 bpm, -Chest x-ray: No acute process. -Laboratory studies: WBC 7.1, hemoglobin 10.8, sodium 133, potassium 4.9, D- dimer 1.13, BUN 44 and creatinine 1.38. Troponin negative x 3. proBNP 6110. Influenza A, influenza B, RSV, COVID-19 not detected -Home cardiac medications: Eliquis 5 mg twice daily, Lasix 40 mg daily, Toprol- XL 50 mg daily, Entresto 24-26 mg twice daily, Aldactone 12.5 mg at bedtime. -Echocardiogram performed in the office on 03/16/2024 revealed EF of 35 to 40% with global LV hypokinesis without regional heterogeneity. Moderate left ventricular hypertrophy. Severely dilated left atrium, mildly dilated right atrium. Trace aortic regurgitation, mild to moderate aortic stenosis. Aortic valve is calcified. Moderate mitral regurgitation. Mild tricuspid regurgitation. PASP of 38 mmHg. -Lexiscan Cardiolite stress test performed in the office on 09/25/2022 revealed nondiagnostic electrocardiographic stress testing response to Lexiscan. Abnormal myocardial perfusion imaging with evidence of fixed defect of the large size and severe intensity involving the inferior wall of the left ventricle associated with hypokinesia and likely represents prior myocardial infarction. No evidence of any stress-induced ischemia. Normal left ventricular systolic function. -Cardiac catheterization performed 10/25/2022 revealed mild nonobstructive coronary artery disease. Review Of Systems: At the time of my exam: CONSTITUTIONAL: Denies fever or chills. HEENT: Denies blurred vision, vision changes, or eye pain. Denies hemoptysis CARDIOVASCULAR: Denies chest pain. + orthopnea. Denies PND. Denies palpitations, + lower extremity edema which RESPIRATORY: + shortness of breath. GASTROINTESTINAL: Denies abdominal pain. Denies nausea or vomiting. HEMATOLOGIC: Denies bleeding disorders. GENITOURINARY: Denies any blood in urine. SKIN: Denies puritis. Denies rash. Physical examination: Gen: This is a 78-year-old male in no acute distress VS: reviewed HEENT: Head is atraumatic, normocephalic. Pupils equal, round. Sclerae is anict joseluis. NECK: Supple. No JVD. LUNGS: Clear to auscultation. No wheezes or rhonchi. No intercostal r etractions. HEART: Irregular rate and rhythm. Systolic murmur. ABDOMEN: Soft No tenderness. EXTREMITIES: No pedal edema. No calf tenderness. NEUROLOGICAL: Patient is awake, alert and oriented x3. Assessment: Mild acute systolic heart failure Permanent A-fib with RVR History of CAD Nonischemic cardiomyopathy status post AICD with known EF of 35 to 40% Valvular heart disease with aortic stenosis and regurgitation, mitral regurgitation Dilated ascending aorta Hypertension Dyslipidemia Chronic kidney disease stage III Overweight Plan: Resume patient's home cardiac medications Discontinue Cardizem drip due to cardiomyopathy Start patient on amiodarone protocol Discontinue Aldactone due to hypotension No need to repeat echocardiogram as this was done in March Continue telemetry monitoring Thank you kindly for this consultation. Nurse practitioner note has been reviewed, I agree with documented findings and plan of care. Patient was seen and examined. Past Medical History Past Medical History: Atrial Fibrillation, Heart Failure, Hypertension Additional Past Medical History / Comment(s): aortic aneurysm History of Any Multi-Drug Resistant Organisms: None Reported Past Surgical History: AICD, Bariatric Surgery, Cholecystectomy, Pacemaker Past Anesthesia/Blood Transfusion Reactions: No Reported Reaction Type of Cardiac Device: Permanent Pacemaker, AICD Device Placement Date:: 2010 Past Psychological History: No Psychological Hx Reported Smoking Status: Former smoker Past Alcohol Use History: Occasional Past Drug Use History: None Reported - Past Family History Father Family Medical History: Congestive Heart Failure (CHF), COPD, Diabetes Mellitus Mother Family Medical History: Congestive Heart Failure (CHF), Diabetes Mellitus Medications and Allergies Home Medications Medication Instructions Recorded Confirmed Type Cyclobenzaprine [Flexeril] 10 mg PO TID PRN 08/10/22 06/15/24 History Escitalopram [Lexapro] 20 mg PO HS 08/10/22 06/15/24 History Famotidine [Pepcid] 20 mg PO BID 08/10/22 06/15/24 History Furosemide [Lasix] 40 mg PO DAILY 08/10/22 06/15/24 History Apixaban [Eliquis] 5 mg PO BID tab 08/18/22 06/15/24 Rx Spironolactone [Aldactone] 25 mg PO HS 03/26/23 06/15/24 History Cholecalciferol [Vitamin D3 (25 50 mcg PO DAILY 06/09/24 06/15/24 History Mcg = 1000 Iu)] Metoprolol Succinate [Toprol XL] 50 mg PO DAILY 06/09/24 06/15/24 History Sacubitril/Valsartan [Entresto 24 1 tab PO BID 06/09/24 06/15/24 History mg-26 mg Tablet] Tamsulosin HCl [Flomax] 0.4 mg PO HS 06/09/24 06/15/24 History Allergies Allergy/AdvReac Type Severity Reaction Status Date / Time carvedilol [From Coreg] Allergy per PCP Verified 06/15/24 16:29 office Iodinated Contrast Media Allergy Itching Verified 06/15/24 16:29 Physical Exam Vitals: Vital Signs Temp Pulse Pulse Resp BP BP Pulse Ox 06/16/24 03:06 97.6 F 142 H 20 85/66 97 06/16/24 02:00 140 H 06/15/24 22:57 97.8 F 138 H 18 93/60 96 06/15/24 20:00 97.6 F 140 H 20 95/77 98 06/15/24 18:36 97.5 F L 140 H 16 95/78 96 06/15/24 17:42 140 H 18 97 06/15/24 17:26 138 H 21 94 L 06/15/24 16:48 135 H 18 96 06/15/24 16:23 137 H 20 101/70 98 06/15/24 14:42 141 H 18 105/82 98 06/15/24 12:48 97.9 F 107 H 20 115/83 97 Intake and Output 06/15/24 06/16/24 06/16/24 22:59 06:59 14:59 Intake Total 7.083 498.167 Balance 7.083 498.167 Intake: Intake, IV Titration 7.083 98.167 Amount Diltiazem 125 mg In 7.083 98.167 Sodium Chloride 0.9% 100 ml @ 5 MG/HR 5 mls/hr IV .Q24H [facility] Rx#:[id number] Oral 400 Other: Voiding Method Toilet Toilet Urinal Urinal # Voids 2 # Bowel Movements 1 Results 06/16/24 05:55 06/16/24 05:55 Cardiac Enzymes 06/15/24 06/15/24 06/15/24 Range/Units 13:54 13:54 20:25 AST 44 (17-59) U/L Troponin I <0.012 0.013 (0.000-0.034) ng/mL 06/15/24 06/16/24 Range/Units 23:29 05:55 AST 26 (17-59) U/L Troponin I <0.012 (0.000-0.034) ng/mL Coagulation 06/15/24 06/15/24 Range/Units 13:54 15:16 PT 12.3 11.9 (10.0-12.5) sec APTT 24.3 23.3 (22.0-30.0) sec CBC 06/15/24 06/16/24 Range/Units 13:54 05:55 WBC 8.0 7.1 (3.8-10.6) k/uL RBC 4.40 4.11 L (4.30-5.90) m/uL Hgb 11.6 L 10.8 L (13.0-17.5) gm/dL Hct 37.5 L 34.6 L (39.0-53.0) % Plt Count 243 210 (150-450) k/uL Comprehensive Metabolic Panel 06/15/24 06/16/24 Range/Units 13:54 05:55 Sodium 136 L 133 L (137-145) mmol/L Potassium 5.3 H 4.9 (3.5-5.1) mmol/L Chloride 104 104 (98-107) mmol/L Carbon Dioxide 24 22 (22-30) mmol/L BUN 45 H 44 H (9-20) mg/dL Creatinine 1.38 H 1.38 H (0.66-1.25) mg/dL Glucose 148 H 121 H (74-99) mg/dL Calcium 9.1 8.7 (8.4-10.2) mg/dL AST 44 26 (17-59) U/L ALT 32 28 (4-49) U/L Alkaline Phosphatase 91 102 (38-126) U/L Total Protein 6.1 L 5.5 L (6.3-8.2) g/dL Albumin 3.5 3.1 L (3.5-5.0) g/dL Current Medications Generic Name Dose Route Start Last Admin Trade Name Freq PRN Reason Stop Dose Admin Acetaminophen 650 mg 06/15/24 17:49 06/16/24 03:56 Acetaminophen Tab 325 Mg Tab PO 650 mg Q6HR PRN Administration Mild Pain or Fever > 100.5 Apixaban 5 mg 06/15/24 21:00 06/15/24 20:09 Apixaban 5 Mg Tab PO 5 mg BID [facility] Administration Protocol Cholecalciferol 50 mcg 06/16/24 09:00 Cholecalciferol 25 Mcg (1000 Iu) Tablet PO DAILY [facility] Cyclobenzaprine HCl 10 mg 06/15/24 17:51 Cyclobenzaprine 10 Mg Tab PO TID PRN Muscle Spasm Escitalopram Oxalate 20 mg 06/15/24 21:00 06/15/24 20:09 Escitalopram 20 Mg Tab PO 20 mg HS [facility] Administration Famotidine 20 mg 06/15/24 21:00 06/15/24 20:10 Famotidine 20 Mg Tab PO 20 mg BID [facility] Administration Furosemide 40 mg 06/16/24 09:00 Furosemide 40 Mg Tab PO DAILY [facility] Diltiazem HCl 125 mg/ Sodium 125 mls @ 10 mls/hr 06/16/24 08:00 Chloride IV .[id number] [facility] 10 MG/HR Metoprolol Succinate 50 mg 06/16/24 09:00 Metoprolol Succinate (Er) 50 Mg Tab.Er.24h PO DAILY [facility] Naloxone HCl 0.2 mg 06/15/24 17:49 Naloxone 0.4 Mg/Ml 1 Ml Vial IV Q2M PRN Opioid Reversal Sacubitril/Valsartan 1 each 06/15/24 21:00 06/15/24 20:09 Sacubitril/Valsartan 24 Mg-26 Mg Tablet PO 1 each BID [facility] Administration Spironolactone 25 mg 06/15/24 21:00 06/15/24 20:10 Spironolactone 25 Mg Tab PO 25 mg HS [facility] Administration Tamsulosin HCl 0.4 mg 06/15/24 21:00 06/15/24 20:09 Tamsulosin 0.4 Mg Cap.Er.24h PO 0.4 mg HS [facility] Administration Intake and Output 06/15/24 06/16/24 06/16/24 22:59 06:59 14:59 Intake Total 7.083 498.167 Balance 7.083 498.167 Intake: Intake, IV Titration 7.083 98.167 Amount Diltiazem 125 mg In 7.083 98.167 Sodium Chloride 0.9% 100 ml @ 5 MG/HR 5 mls/hr IV .Q24H [facility] Rx#:[id number] Oral 400 Other: Voiding Method Toilet Toilet Urinal Urinal # Voids 2 # Bowel Movements 1 06/16/24 05:55 06/16/24 05:55
[2024-06-16] MEDS: DILTIAZEM 125 MG in SODIUM CHLORIDE 0.9% 100 ML IV SCH (10:46)
--- NOTE | 2024-06-16 15:35 | NM ---
EXAMINATION TYPE: NM pul vent and perfuse DATE OF EXAM: 06/16/2024 CLINICAL INDICATION: Male, 78 years old with history of elevated ddimer, sob; COMPARISON: NONE TECHNIQUE: Utilizing inhalation of 33 mCi Tc 99m DTPA aerosol and intravenous injection of 4.2 mCi o f Tc 99m MAA, ventilation and perfusion images are acquired post injection in multiple projections. FINDINGS: Normal radiotracer distribution is noted in the lungs. There is no evidence of mismatched defects. IMPRESSION: Very low probability for pulmonary embolism [facility] C[facility], , 06/16/2024 3:32 PM
[2024-06-16] MEDS: AMIODARONE 450 MG in DEXTROSE 5% IN WATER 250 ML IV SCH (15:56)
[2024-06-16 18:34] VITALS: RESP 18
[2024-06-17] MEDS: CYCLOBENZAPRINE 10 MG TAB PO PRN (07:26)
[2024-06-17 07:39] LABS: Anisocytosis Slight; Basophils % (A) 1 %; Eosinophils # (A) 0.1 k/uL (0-0.7); Eosinophils % (A) 1 %; HCT 35.7 % (39.0-53.0); HGB 10.7 gm/dL (13.0-17.5); Hypochromasia Marked; Lymphocytes # (A) 1.4 k/uL (1.0-4.8); Lymphocytes % (A) 19 %; MCH 25.6 pg (25.0-35.0); MCHC 29.9 g/dL (31.0-37.0); MCV 85.8 fL (80.0-100.0); Mean Platelet Volume 8.4; Monocytes # (A) 0.6 k/uL (0-1.0); Monocytes % (A) 8 %; Neutrophils % (A) 69 %; Platelet Count 183 k/uL (150-450); RBC 4.16 m/uL (4.30-5.90); RDW 16.6 % (11.5-15.5); WBC 7.2 k/uL (3.8-10.6)
[2024-06-17 07:56] LABS: ALT 50 U/L (4-49); AST 48 U/L (17-59); African American GFR (CKD) 53 (>60 ml/min/1.73 sqM); Albumin 3.3 g/dL (3.5-5.0); Alkaline Phosphatase 108 U/L (38-126); Anion Gap 5 mmol/L; Blood Urea Nitrogen 44 mg/dL (9-20); Calcium 8.8 mg/dL (8.4-10.2); Carbon Dioxide 25 mmol/L (22-30); Chloride 103 mmol/L (98-107); Glucose 118 mg/dL (74-99); Non-African American GFR(CKD) 46 (>60 ml/min/1.73 sqM); Potassium 5.4 mmol/L (3.5-5.1); Sodium 133 mmol/L (137-145); Total Protein 5.7 g/dL (6.3-8.2)
--- NOTE | 2024-06-17 10:04 | P.PN ---
Subjective Progress Note Date: 06/17/24 this is a 78-year-old male patient of Dr. Castro who presented with complaints of increased shortness of breath and increased lower extremity swelling over the past few dayspatient was recently here and discharged on 06/09/2024 for acute CHF exacerbation. Patient reports improvement at that time but states proximally 3 days after returning home had increased issues.chest x-ray completed showing no acute cardiopulmonary process. EKG completed showingsinus tachycardia right bundle branch block heart rate 137. Patient has a past medical history of atrial fibrillation maintained on eliquis. Additional medical history includes heart failure, hypertension, aortic aneurysm, AICD, cholecystectomy.laboratory showing WBC 7.1, hemoglobin 10.8, creatinine 1.38, troponin negative,BNP 6110. D-dimer 1.13. Covid in influenza and RSV negative. In ER patient was initially started on IV Cardizem.patient has been evaluated by urology services patient is being switched to IV amiodarone. VQ scan also ordered due to elevated d-dimer. This time patient denies chest pain. Patient reports some shortness breath. Patient denies nausea vomiting or diarrhea. Patient denies any urinary burning or frequency.current vital signs temp 97.6, heart rate 138, respiratory rate 20, blood pressure 125/79 with pulse of 93% on 2 L On 06/17/2024 patient is alert and oriented x 3. Patient remains on IV amiodarone and Eliquis. Patient still having some shortness of breath VQ scan was completed showing very low probability for pulmonary embolism. Creatinine 1.44 bun 44. Awaiting further recommendations from cardiology. Current vital signs temp 97.7, heart rate 124, respiratory rate 18, blood pressure 113/73 with a pulse ox of 96%. Objective - Vital Signs Vital signs: Vital Signs Temp 97.7 F 06/17/24 08:00 Pulse 124 H 06/17/24 08:00 Resp 18 06/17/24 08:00 BP 113/73 06/17/24 08:00 Pulse Ox 96 06/17/24 08:00 FiO2 Intake & Output 06/16/24 06/17/24 06/17/24 18:59 06:59 18:59 Intake Total 250 118 Balance 250 118 Weight 138.7 kg Intake: Intake, IV Titration 250 Amount Amiodarone 450 mg In 250 Dextrose 5% in Water 250 ml @ 0.5 MG/MIN 16.667 mls/hr IV .Q15H [facility] Rx#: [id number] Oral 118 Other: Voiding Method Toilet # Voids 1 # Bowel Movements 1 - Exam Head normocephalic Neck supple Lungs clear to auscultation bilaterally no wheezing or crackles Heartirregular heart rate no nature fibrillation Abdomen is soft nontender nondistended positive bowel sounds no hepato splenomegaly Extremities no edema Neuro alert and orientated to 3 - Labs CBC & Chem 7: 06/17/24 07:13 06/17/24 07:13 Labs: Abnormal Lab Results - Last 24 Hours (Table) 06/17/24 06/17/24 Range/Units 07:13 07:13 RBC 4.16 L (4.30-5.90) m/uL Hgb 10.7 L (13.0-17.5) gm/dL Hct 35.7 L (39.0-53.0) % MCHC 29.9 L (31.0-37.0) g/dL RDW 16.6 H (11.5-15.5) % Sodium 133 L (137-145) mmol/L Potassium 5.4 H (3.5-5.1) mmol/L BUN 44 H (9-20) mg/dL Creatinine 1.44 H (0.66-1.25) mg/dL Glucose 118 H (74-99) mg/dL ALT 50 H (4-49) U/L Total Protein 5.7 L (6.3-8.2) g/dL Albumin 3.3 L (3.5-5.0) g/dL Assessment and Plan Assessment: 1. Shortness breath secondary to A. fib with RVR 2. Elevated d-dimer. VQ scan ordered 3. Acute on chronic systolic congestive heart failure 4. History of nonischemic cardiomyopathy 5. History of AICD placement 6. History of proximal atrial fibrillation 7. History of hyperlipidemia 8. History of essential hypertension 9. History of coronary artery disease with previous cardiac catheterization in 2022 DVT prophylaxis eliquis. GI prophylaxis Pepcid Cardiology service is consulted VQ scan completed showing very low probability for PE Patient maintained on IV amiodarone Repeat labs ordered
[2024-06-17] MEDS: HYDROcodone/APAP 5-325MG 1 EACH TAB PO PRN (10:17)
[2024-06-17] MEDS: FUROSEMIDE 10 MG/ML 4 ML VIAL IV STA (12:30)
--- NOTE | 2024-06-17 13:48 | P.PN ---
Subjective Progress Note Date: 06/17/24 Reason for Consult (text): A-fib with RVR History of present illness: This is a 78-year-old male patient of Dr. Jay with past medical history of coronary artery disease, nonischemic cardiomyopathy status post AICD with known EF of 35 to 40%, permanent atrial fibrillation on Eliquis, valvular heart disease with aortic stenosis and regurgitation and mitral regurgitation, dilated ascending aorta as well as hypertension, dyslipidemia, overweight. We have been asked to evaluate the patient for A-fib with RVR. Patient presented to the hospital with shortness of breath. Patient gives history that he received the flu vaccine, COVID-19 and RSV immunizations 2 weeks ago. About 1 week after that he started having edema in his 1 leg and he was hospitalized on 06/08 and was discharged home the next day. He states that after he left the by the next morning he started to have swelling of the other leg. He also states he has more shortness of breath, orthopnea and weight gain. No chest pain. He states that then his foot started getting sore and he had inability to walk. He states he has been following a no added salt diet and he has been taking all of his medications as directed. Nursing states that patient has had some episodes of confusions while here and has removed all of his cardiac leads. Blood pressure 85/66, heart rate 142, pulse ox 97% on 2 L nasal cannula. Patient is seen today in the emergency center waiting for a bed on the cardiac stepdown unit. Patient has been started on Cardizem bolus of 5 mg followed by drip at 5 mg/h. -EKG: Atrial fibrillation at 139 bpm, -Chest x-ray: No acute process. -Laboratory studies: WBC 7.1, hemoglobin 10.8, sodium 133, potassium 4.9, D- dimer 1.13, BUN 44 and creatinine 1.38. Troponin negative x 3. proBNP 6110. Influenza A, influenza B, RSV, COVID-19 not detected -Home cardiac medications: Eliquis 5 mg twice daily, Lasix 40 mg daily, Toprol- XL 50 mg daily, Entresto 24-26 mg twice daily, Aldactone 12.5 mg at bedtime. -Echocardiogram performed in the office on 03/16/2024 revealed EF of 35 to 40% with global LV hypokinesis without regional heterogeneity. Moderate left ventricular hypertrophy. Severely dilated left atrium, mildly dilated right atrium. Trace aortic regurgitation, mild to moderate aortic stenosis. Aortic valve is calcified. Moderate mitral regurgitation. Mild tricuspid regurgitation. PASP of 38 mmHg. -Lexiscan Cardiolite stress test performed in the office on 09/25/2022 revealed nondiagnostic electrocardiographic stress testing response to Lexiscan. Abnormal myocardial perfusion imaging with evidence of fixed defect of the large size and severe intensity involving the inferior wall of the left ventricle associated with hypokinesia and likely represents prior myocardial infarction. No evidence of any stress-induced ischemia. Normal left ventricular systolic function. -Cardiac catheterization performed 10/25/2022 revealed mild nonobstructive coronary artery disease. 06/17/2024. Patient is seen and examined on the cardiac stepdown unit. Patient is complaining of increased edema from yesterday to his feet and his feet feeling sore and we will ask for attending to address possible cellulitis of the lower extremities. 1 dose of IV Lasix will be ordered. VQ scan was low probability for pulmonary embolism. Heart rate is at 120s and beta-gurjit will be increased, amiodarone switched to oral. Blood pressure 93/68, pulse ox 96% on room air. Repeat blood work reveals hemoglobin 10.7, sodium 133, potassium 5.4, BUN 44 creatinine 1.44. Physical examination: Gen: This is a 78-year-old male in no acute distress VS: reviewed HEENT: Head is atraumatic, normocephalic. Pupils equal, round. Sclerae is anicteric. NECK: Supple. No JVD. LUNGS: Clear to auscultation. No wheezes or rhonchi. No intercostal retractions. HEART: Irregular rate and rhythm. Systolic murmur. ABDOMEN: Soft No tenderness. EXTREMITIES: No pedal edema. No calf tenderness. NEUROLOGICAL: Patient is awake, alert and oriented x3. Assessment: Mild acute systolic heart failure Permanent A-fib with RVR History of CAD Nonischemic cardiomyopathy status post AICD with known EF of 35 to 40% Valvular heart disease with aortic stenosis and regurgitation, mitral regurgitation Dilated ascending aorta Hypertension Dyslipidemia Chronic kidney disease stage III Overweight Possible lower extremity cellulitis, attending to address Plan: Continue patient's home cardiac medications Transition IV amiodarone to oral 400 mg twice daily Increase Toprol XL 50 mg to frequency of twice daily 1 dose of IV Lasix 20 mg now Discontinue Aldactone due to hypotension No need to repeat echocardiogram as this was done in March Continue telemetry monitoring Nurse practitioner note has been reviewed, I agree with documented findings and plan of care. Patient was seen and examined. Objective - Vital Signs Vital signs: Vital Signs Temp 97.3 F L 06/17/24 12:00 Pulse 122 H 06/17/24 12:00 Resp 18 06/17/24 12:00 BP 93/68 06/17/24 12:00 Pulse Ox 96 06/17/24 12:00 FiO2 Intake & Output 06/16/24 06/17/24 06/17/24 18:59 06:59 18:59 Intake Total 250 118 Balance 250 118 Weight 138.7 kg Intake: Intake, IV Titration 250 Amount Amiodarone 450 mg In 250 Dextrose 5% in Water 250 ml @ 0.5 MG/MIN 16.667 mls/hr IV .Q15H [facility] Rx#: [id number] Oral 118 Other: Voiding Method Toilet Toilet # Voids 1 1 # Bowel Movements 1 1 - Labs CBC & Chem 7: 06/17/24 07:13 06/17/24 07:13 Labs: Abnormal Lab Results - Last 24 Hours (Table) 06/17/24 06/17/24 Range/Units 07:13 07:13 RBC 4.16 L (4.30-5.90) m/uL Hgb 10.7 L (13.0-17.5) gm/dL Hct 35.7 L (39.0-53.0) % MCHC 29.9 L (31.0-37.0) g/dL RDW 16.6 H (11.5-15.5) % Sodium 133 L (137-145) mmol/L Potassium 5.4 H (3.5-5.1) mmol/L BUN 44 H (9-20) mg/dL Creatinine 1.44 H (0.66-1.25) mg/dL Glucose 118 H (74-99) mg/dL ALT 50 H (4-49) U/L Total Protein 5.7 L (6.3-8.2) g/dL Albumin 3.3 L (3.5-5.0) g/dL
[2024-06-17] MEDS: AMIODARONE 200 MG TAB PO SCH (14:47)
--- NOTE | 2024-06-17 15:10 | XR ---
EXAMINATION TYPE: XR foot complete RT DATE OF EXAM: 06/17/2024 2:51 PM COMPARISON: None. CLINICAL INDICATION: Male, 78 years old with history of right foot pain, pain TECHNIQUE: XR foot complete RT XX views were obtained. FINDINGS: There is no acute fracture/dislocation evident. The joint spaces appear within normal limits. The o verlying soft tissue appears unremarkable. IMPRESSION: No acute fracture or dislocation. [facility], , 06/17/2024 3:07 PM
[2024-06-17] MEDS: METOPROLOL SUCCINATE (ER) 50 MG TAB.ER.24H PO SCH (20:10)
[2024-06-18 08:16] LABS: ALT 42 U/L (4-49); AST 32 U/L (17-59); African American GFR (CKD) 55 (>60 ml/min/1.73 sqM); Albumin 3.1 g/dL (3.5-5.0); Alkaline Phosphatase 110 U/L (38-126); Anion Gap 2 mmol/L; Blood Urea Nitrogen 37 mg/dL (9-20); Calcium 8.5 mg/dL (8.4-10.2); Carbon Dioxide 30 mmol/L (22-30); Chloride 102 mmol/L (98-107); Glucose 103 mg/dL (74-99); Non-African American GFR(CKD) 47 (>60 ml/min/1.73 sqM); Potassium 4.3 mmol/L (3.5-5.1); Sodium 134 mmol/L (137-145); Total Bilirubin 0.7 mg/dL (0.2-1.3); Total Protein 5.4 g/dL (6.3-8.2)
[2024-06-18 08:18] LABS: Anisocytosis Slight; Basophils % (A) 1 %; Eosinophils # (A) 0.2 k/uL (0-0.7); Eosinophils % (A) 2 %; HCT 35.4 % (39.0-53.0); HGB 10.7 gm/dL (13.0-17.5); Hypochromasia Marked; Lymphocytes # (A) 1.3 k/uL (1.0-4.8); Lymphocytes % (A) 21 %; MCHC 30.4 g/dL (31.0-37.0); MCV 85.7 fL (80.0-100.0); Monocytes # (A) 0.5 k/uL (0-1.0); Monocytes % (A) 7 %; Neutrophils # (A) 4.4 k/uL (1.3-7.7); Neutrophils % (A) 68 %; Platelet Count 179 k/uL (150-450); RBC 4.13 m/uL (4.30-5.90); RDW 16.3 % (11.5-15.5); WBC 6.4 k/uL (3.8-10.6)
--- NOTE | 2024-06-18 12:37 | P.PN ---
Subjective Progress Note Date: 06/18/24 Reason for Consult (text): A-fib with RVR History of present illness: This is a 78-year-old male patient of Dr. Jay with past medical history of coronary artery disease, nonischemic cardiomyopathy status post AICD with known EF of 35 to 40%, permanent atrial fibrillation on Eliquis, valvular heart disease with aortic stenosis and regurgitation and mitral regurgitation, dilated ascending aorta as well as hypertension, dyslipidemia, overweight. We have been asked to evaluate the patient for A-fib with RVR. Patient presented to the hospital with shortness of breath. Patient gives history that he received the flu vaccine, COVID-19 and RSV immunizations 2 weeks ago. About 1 week after that he started having edema in his 1 leg and he was hospitalized on 06/08 and was discharged home the next day. He states that after he left the by the next morning he started to have swelling of the other leg. He also states he has more shortness of breath, orthopnea and weight gain. No chest pain. He states that then his foot started getting sore and he had inability to walk. He states he has been following a no added salt diet and he has been taking all of his medications as directed. Nursing states that patient has had some episodes of confusions while here and has removed all of his cardiac leads. Blood pressure 85/66, heart rate 142, pulse ox 97% on 2 L nasal cannula. Patient is seen today in the emergency center waiting for a bed on the cardiac stepdown unit. Patient has been started on Cardizem bolus of 5 mg followed by drip at 5 mg/h. -EKG: Atrial fibrillation at 139 bpm, -Chest x-ray: No acute process. -Laboratory studies: WBC 7.1, hemoglobin 10.8, sodium 133, potassium 4.9, D- dimer 1.13, BUN 44 and creatinine 1.38. Troponin negative x 3. proBNP 6110. Influenza A, influenza B, RSV, COVID-19 not detected -Home cardiac medications: Eliquis 5 mg twice daily, Lasix 40 mg daily, Toprol- XL 50 mg daily, Entresto 24-26 mg twice daily, Aldactone 12.5 mg at bedtime. -Echocardiogram performed in the office on 03/16/2024 revealed EF of 35 to 40% with global LV hypokinesis without regional heterogeneity. Moderate left ventricular hypertrophy. Severely dilated left atrium, mildly dilated right atrium. Trace aortic regurgitation, mild to moderate aortic stenosis. Aortic valve is calcified. Moderate mitral regurgitation. Mild tricuspid regurgitation. PASP of 38 mmHg. -Lexiscan Cardiolite stress test performed in the office on 09/25/2022 revealed nondiagnostic electrocardiographic stress testing response to Lexiscan. Abnormal myocardial perfusion imaging with evidence of fixed defect of the large size and severe intensity involving the inferior wall of the left ventricle associated with hypokinesia and likely represents prior myocardial infarction. No evidence of any stress-induced ischemia. Normal left ventricular systolic function. -Cardiac catheterization performed 10/25/2022 revealed mild nonobstructive coronary artery disease. 06/17/2024. Patient is seen and examined on the cardiac stepdown unit. Patient is complaining of increased edema from yesterday to his feet and his feet feeling sore and we will ask for attending to address possible cellulitis of the lower extremities. 1 dose of IV Lasix will be ordered. VQ scan was low probability for pulmonary embolism. Heart rate is at 120s and beta-gurjit will be increased, amiodarone switched to oral. Blood pressure 93/68, pulse ox 96% on room air. Repeat blood work reveals hemoglobin 10.7, sodium 133, potassium 5.4, BUN 44 creatinine 1.44. 06/18/2024 Patient seen and examined. Patient states that his breathing is okay. His feet are still bothering him but the lower extremity edema is improved. He has been started on IV antibiotics. Blood pressure 95/68, heart rate 114, pulse ox 98% on room air. Repeat hemoglobin is 10.7, BUN 37 creatinine 1.41. Physical examination: Gen: This is a 78-year-old male in no acute distress VS: reviewed HEENT: Head is atraumatic, normocephalic. Pupils equal, round. Sclerae is anicteric. NECK: Supple. No JVD. LUNGS: Clear to auscultation. No wheezes or rhonchi. No intercostal retractions. HEART: Irregular rate and rhythm. Systolic murmur. ABDOMEN: Soft No tenderness. EXTREMITIES: No pedal edema. No calf tenderness. NEUROLOGICAL: Patient is awake, alert and oriented x3. Assessment: Mild acute systolic heart failure Permanent A-fib with RVR History of CAD Nonischemic cardiomyopathy status post AICD with known EF of 35 to 40% Valvular heart disease with aortic stenosis and regurgitation, mitral regurgitation Dilated ascending aorta Hypertension Dyslipidemia Chronic kidney disease stage III Overweight Possible lower extremity cellulitis, attending to address Plan: Continue patient's home cardiac medications amiodarone 400 mg twice daily, Eliquis 5 mg twice daily, Lasix 40 mg daily, Entresto 24-26 mg twice daily Increase Toprol XL 100 mg twice daily 1 dose of IV Lasix 40 mg now Discontinue Aldactone due to hypotension No need to repeat echocardiogram as this was done in March Continue telemetry monitoring Nurse practitioner note has been reviewed, I agree with documented findings and plan of care. Patient was seen and examined. Objective - Vital Signs Vital signs: Vital Signs Temp 97.5 F L 06/18/24 03:21 Pulse 112 H 06/18/24 03:21 Resp 18 06/18/24 03:21 BP 112/79 06/18/24 03:21 Pulse Ox 96 06/18/24 03:21 FiO2 Intake & Output 06/17/24 06/18/24 06/18/24 18:59 06:59 18:59 Intake Total 898 240 Balance 898 240 Weight 136.1 kg Intake: Oral 898 240 Other: Voiding Method Toilet Toilet # Voids 1 1 # Bowel Movements 1 - Labs CBC & Chem 7: 06/18/24 06:52 06/18/24 06:52 Labs: Abnormal Lab Results - Last 24 Hours (Table) 06/18/24 06/18/24 Range/Units 06:52 06:52 RBC 4.13 L (4.30-5.90) m/uL Hgb 10.7 L (13.0-17.5) gm/dL Hct 35.4 L (39.0-53.0) % MCHC 30.4 L (31.0-37.0) g/dL RDW 16.3 H (11.5-15.5) % Sodium 134 L (137-145) mmol/L BUN 37 H (9-20) mg/dL Creatinine 1.41 H (0.66-1.25) mg/dL Glucose 103 H (74-99) mg/dL Total Protein 5.4 L (6.3-8.2) g/dL Albumin 3.1 L (3.5-5.0) g/dL
--- NOTE | 2024-06-18 14:24 | P.PN ---
Subjective Progress Note Date: 06/18/24 this is a 78-year-old male patient of Dr. Castro who presented with complaints of increased shortness of breath and increased lower extremity swelling over the past few dayspatient was recently here and discharged on 06/09/2024 for acute CHF exacerbation. Patient reports improvement at that time but states proximally 3 days after returning home had increased issues.chest x-ray completed showing no acute cardiopulmonary process. EKG completed showingsinus tachycardia right bundle branch block heart rate 137. Patient has a past medical history of atrial fibrillation maintained on eliquis. Additional medical history includes heart failure, hypertension, aortic aneurysm, AICD, cholecystectomy.laboratory showing WBC 7.1, hemoglobin 10.8, creatinine 1.38, troponin negative,BNP 6110. D-dimer 1.13. Covid in influenza and RSV negative. In ER patient was initially started on IV Cardizem.patient has been evaluated by urology services patient is being switched to IV amiodarone. VQ scan also ordered due to elevated d-dimer. This time patient denies chest pain. Patient reports some shortness breath. Patient denies nausea vomiting or diarrhea. Patient denies any urinary burning or frequency.current vital signs temp 97.6, heart rate 138, respiratory rate 20, blood pressure 125/79 with pulse of 93% on 2 L On 06/17/2024 patient is alert and oriented x 3. Patient remains on IV amiodarone and Eliquis. Patient still having some shortness of breath VQ scan was completed showing very low probability for pulmonary embolism. Creatinine 1.44 bun 44. Awaiting further recommendations from cardiology. Current vital signs temp 97.7, heart rate 124, respiratory rate 18, blood pressure 113/73 with a pulse ox of 96%. On 06/18/2024 patient is alert and oriented 3. Medications have been adjusted patient having episodes of hypotension. Patient's heart rate remains elevated. Patient started on by mouth amiodarone. Foot x-ray negative. Uric acid level has been ordered. Patient remains on IV Keflex for cellulitis.current vital signs temp 97.3, heart rate 110, respiratory rate 18, blood pressure 81/58 with pulse ox 97% on room air Objective - Vital Signs Vital signs: Vital Signs Temp 97.3 F L 06/18/24 12:00 Pulse 110 H 06/18/24 14:00 Resp 18 12/19/24 14:00 BP 81/58 06/18/24 12:00 Pulse Ox 97 06/18/24 12:00 FiO2 Intake & Output 06/17/24 06/18/24 06/18/24 18:59 06:59 18:59 Intake Total 898 240 Balance 898 240 Weight 136.1 kg Intake: Oral 898 240 Other: Voiding Method Toilet Toilet Toilet # Voids 1 1 # Bowel Movements 1 - Exam Head normocephalic Neck supple Lungs clear to auscultation bilaterally no wheezing or crackles Heartirregular heart rate no nature fibrillation Abdomen is soft nontender nondistended positive bowel sounds no hepatosplenomegaly Extremities no edema Neuro alert and orientated to 3 - Labs CBC & Chem 7: 06/18/24 06:52 06/18/24 06:52 Labs: Abnormal Lab Results - Last 24 Hours (Table) 06/18/24 06/18/24 Range/Units 06:52 06:52 RBC 4.13 L (4.30-5.90) m/uL Hgb 10.7 L (13.0-17.5) gm/dL Hct 35.4 L (39.0-53.0) % MCHC 30.4 L (31.0-37.0) g/dL RDW 16.3 H (11.5-15.5) % Sodium 134 L (137-145) mmol/L BUN 37 H (9-20) mg/dL Creatinine 1.41 H (0.66-1.25) mg/dL Glucose 103 H (74-99) mg/dL Total Protein 5.4 L (6.3-8.2) g/dL Albumin 3.1 L (3.5-5.0) g/dL Assessment and Plan Assessment: 1. Shortness breath secondary to A. fib with RVR 2. Elevated d-dimer. VQ scan ordered 3. Acute on chronic systolic congestive heart failure 4. History of nonischemic cardiomyopathy 5. History of AICD placement 6. History of proximal atrial fibrillation 7. History of hyperlipidemia 8. History of essential hypertension 9. History of coronary artery disease with previous cardiac catheterization in 2022 10. cellulitis bilateral lower extremity is patient started on IV Keflex DVT prophylaxis eliquis. GI prophylaxis Pepcid Cardiology service is consulted VQ scan completed showing very low probability for PE Patient maintained on IV amiodarone Repeat labs ordered
[2024-06-18] MEDS: METOPROLOL SUCCINATE (ER) 50 MG TAB.ER.24H PO STA (16:02)
[2024-06-18] MEDS: FUROSEMIDE 10 MG/ML 4 ML VIAL IV STA (16:03)
[2024-06-18] MEDS: METOPROLOL SUCCINATE (ER) 100 MG TAB.ER.24H PO SCH (20:27)
[2024-06-19 08:53] VITALS: BP 137/96; PULSE 99; TEMP 97.5
[2024-06-19 09:35] LABS: ALT 35 U/L (4-49); AST 38 U/L (17-59); African American GFR (CKD) 56 (>60 ml/min/1.73 sqM); Alkaline Phosphatase 100 U/L (38-126); Anion Gap 4 mmol/L; Blood Urea Nitrogen 32 mg/dL (9-20); Calcium 8.4 mg/dL (8.4-10.2); Carbon Dioxide 29 mmol/L (22-30); Chloride 101 mmol/L (98-107); Glucose 132 mg/dL (74-99); Non-African American GFR(CKD) 48 (>60 ml/min/1.73 sqM); Potassium 4.7 mmol/L (3.5-5.1); Sodium 134 mmol/L (137-145); Total Bilirubin 0.6 mg/dL (0.2-1.3); Total Protein 5.3 g/dL (6.3-8.2)
[2024-06-19 09:43] LABS: Anisocytosis Slight; Basophils % (A) 0 %; Eosinophils # (A) 0.2 k/uL (0-0.7); Eosinophils % (A) 3 %; HGB 10.7 gm/dL (13.0-17.5); Hypochromasia Marked; Lymphocytes % (A) 17 %; MCH 25.8 pg (25.0-35.0); MCHC 29.8 g/dL (31.0-37.0); MCV 86.5 fL (80.0-100.0); Mean Platelet Volume 9.9; Monocytes # (A) 0.2 k/uL (0-1.0); Monocytes % (A) 4 %; Neutrophils # (A) 4.5 k/uL (1.3-7.7); Neutrophils % (A) 75 %; Platelet Count 180 k/uL (150-450); RBC 4.16 m/uL (4.30-5.90); RDW 16.7 % (11.5-15.5)
--- NOTE | 2024-06-19 10:31 | P.DS ---
Providers Date of admission: 06/15/24 17:51 Expected date of discharge: 06/19/24 Attending physician: Angel Butts Consults: 06/15/24 17:49 Consult Physician Urgent Consulting Provider: Terrance Jay Consult Reason/Comments: a fib w dyspnea Do you want consulting provider notified?: Yes Primary care physician: Lashaun Castro Hospital Course: Discharge diagnosis 1. Shortness breath secondary to A. fib with RVR 2. Elevated d-dimer. VQ scan ordered 3. Acute on chronic systolic congestive heart failure 4. History of nonischemic cardiomyopathy 5. History of AICD placement 6. History of proximal atrial fibrillation 7. History of hyperlipidemia 8. History of essential hypertension 9. History of coronary artery disease with previous cardiac catheterization in 2022 10. cellulitis bilateral lower extremity is patient started on IV Keflex hospital course this is a 78-year-old male patient of Dr. Csatro who presented with complaints of increased shortness of breath and increased lower extremity swelling over the past few dayspatient was recently here and discharged on 06/09/2024 for acute CHF exacerbation. Patient reports improvement at that time but states proximally 3 days after returning home had increased issues.chest x-ray completed showing no acute cardiopulmonary process. EKG completed showingsinus tachycardia right bundle branch block heart rate 137. Patient has a past medical history of atrial fibrillation maintained on eliquis. Additional medical history includes heart failure, hypertension, aortic aneurysm, AICD, cholecystectomy.laboratory showing WBC 7.1, hemoglobin 10.8, creatinine 1.38, troponin negative,BNP 6110. D-dimer 1.13. Covid in influenza and RSV negative. In ER patient was initially started on IV Cardizem.patient has been evaluated by urology services patient is being switched to IV amiodarone. VQ scan also ordered due to elevated d-dimer. This time patient denies chest pain. Patient reports some shortness breath. Patient denies nausea vomiting or diarrhea. Patient denies any urinary burning or frequency.current vital signs temp 97.6, heart rate 138, respiratory rate 20, blood pressure 125/79 with pulse of 93% on 2 L On 06/17/2024 patient is alert and oriented x 3. Patient remains on IV amiodarone and Eliquis. Patient still having some shortness of breath VQ scan was completed showing very low probability for pulmonary embolism. Creatinine 1.44 bun 44. Awaiting further recommendations from cardiology. Current vital signs temp 97.7, heart rate 124, respiratory rate 18, blood pressure 113/73 with a pulse ox of 96%. On 06/18/2024 patient is alert and oriented 3. Medications have been adjusted patient having episodes of hypotension. Patient's heart rate remains elevated. Patient started on by mouth amiodarone. Foot x-ray negative. Uric acid level has been ordered. Patient remains on IV Keflex for cellulitis.current vital signs temp 97.3, heart rate 110, respiratory rate 18, blood pressure 81/58 with pulse ox 97% on room air On 06/19/2024 patient is alert and oriented x 3. Patient has been cleared for discharge from cardiology standpoint. Patient to continue on Lopressor Lasix and amiodarone. Patient also be DC'd on Keflex for 7 days. Patient denies any chest pain or shortness of breath. Patient denies nausea vomiting or diarrhea. Patient denies any urinary burning or frequency Patient Condition at Discharge: Stable Plan - Discharge Summary Discharge Rx Participant: No New Discharge Prescriptions: New Amiodarone [Cordarone] 200 mg PO BID 30 Days #60 tab Cephalexin [Keflex] 250 mg PO Q8HR 7 Days #21 capsule Furosemide [Lasix] 40 mg PO BID@0900,1600 30 Days #60 tab Metoprolol Succinate (ER) [Toprol XL] 100 mg PO BID 30 Days #60 tab Continue Famotidine [Pepcid] 20 mg PO BID Escitalopram [Lexapro] 20 mg PO HS Cholecalciferol [Vitamin D3 (25 Mcg = 1000 Iu)] 50 mcg PO DAILY Sacubitril/Valsartan [Entresto 24 mg-26 mg Tablet] 1 tab PO BID Cyclobenzaprine [Flexeril] 10 mg PO TID PRN PRN Reason: Muscle Spasm Apixaban [Eliquis] 5 mg PO BID tab Tamsulosin HCl [Flomax] 0.4 mg PO HS Discontinued Spironolactone [Aldactone] 25 mg PO HS Metoprolol Succinate [Toprol XL] 50 mg PO DAILY Furosemide [Lasix] 40 mg PO DAILY Discharge Medication List Cyclobenzaprine [Flexeril] 10 mg PO TID PRN 08/10/22 [History] Escitalopram [Lexapro] 20 mg PO HS 08/10/22 [History] Famotidine [Pepcid] 20 mg PO BID 08/10/22 [History] Apixaban [Eliquis] 5 mg PO BID tab 08/18/22 [Rx] Cholecalciferol [Vitamin D3 (25 Mcg = 1000 Iu)] 50 mcg PO DAILY 06/09/24 [History] Sacubitril/Valsartan [Entresto 24 mg-26 mg Tablet] 1 tab PO BID 06/09/24 [History] Tamsulosin HCl [Flomax] 0.4 mg PO HS 06/09/24 [History] Amiodarone [Cordarone] 200 mg PO BID 30 Days #60 tab 06/19/24 [Rx] Cephalexin [Keflex] 250 mg PO Q8HR 7 Days #21 capsule 06/19/24 [Rx] Furosemide [Lasix] 40 mg PO BID@0900,1600 30 Days #60 tab 06/19/24 [Rx] Metoprolol Succinate (ER) [Toprol XL] 100 mg PO BID 30 Days #60 tab 06/19/24 [Rx] Follow up Appointment(s)/Referral(s): Lashaun Castro MD [Primary Care Provider] - 1-2 days Terrance Jay MD [STAFF PHYSICIAN] - 1 Week Discharge Disposition: HOME SELF-CARE
--- NOTE | 2024-06-19 14:00 | P.PN ---
Subjective Progress Note Date: 06/19/24 Reason for Consult (text): A-fib with RVR History of present illness: This is a 78-year-old male patient of Dr. Jay with past medical history of coronary artery disease, nonischemic cardiomyopathy status post AICD with known EF of 35 to 40%, permanent atrial fibrillation on Eliquis, valvular heart disease with aortic stenosis and regurgitation and mitral regurgitation, dilated ascending aorta as well as hypertension, dyslipidemia, overweight. We have been asked to evaluate the patient for A-fib with RVR. Patient presented to the hospital with shortness of breath. Patient gives history that he received the flu vaccine, COVID-19 and RSV immunizations 2 weeks ago. About 1 week after that he started having edema in his 1 leg and he was hospitalized on 06/08 and was discharged home the next day. He states that after he left the by the next morning he started to have swelling of the other leg. He also states he has more shortness of breath, orthopnea and weight gain. No chest pain. He states that then his foot started getting sore and he had inability to walk. He states he has been following a no added salt diet and he has been taking all of his medications as directed. Nursing states that patient has had some episodes of confusions while here and has removed all of his cardiac leads. Blood pressure 85/66, heart rate 142, pulse ox 97% on 2 L nasal cannula. Patient is seen today in the emergency center waiting for a bed on the cardiac stepdown unit. Patient has been started on Cardizem bolus of 5 mg followed by drip at 5 mg/h. -EKG: Atrial fibrillation at 139 bpm, -Chest x-ray: No acute process. -Laboratory studies: WBC 7.1, hemoglobin 10.8, sodium 133, potassium 4.9, D- dimer 1.13, BUN 44 and creatinine 1.38. Troponin negative x 3. proBNP 6110. Influenza A, influenza B, RSV, COVID-19 not detected -Home cardiac medications: Eliquis 5 mg twice daily, Lasix 40 mg daily, Toprol- XL 50 mg daily, Entresto 24-26 mg twice daily, Aldactone 12.5 mg at bedtime. -Echocardiogram performed in the office on 03/16/2024 revealed EF of 35 to 40% with global LV hypokinesis without regional heterogeneity. Moderate left ventricular hypertrophy. Severely dilated left atrium, mildly dilated right atrium. Trace aortic regurgitation, mild to moderate aortic stenosis. Aortic valve is calcified. Moderate mitral regurgitation. Mild tricuspid regurgitation. PASP of 38 mmHg. -Lexiscan Cardiolite stress test performed in the office on 09/25/2022 revealed nondiagnostic electrocardiographic stress testing response to Lexiscan. Abnormal myocardial perfusion imaging with evidence of fixed defect of the large size and severe intensity involving the inferior wall of the left ventricle associated with hypokinesia and likely represents prior myocardial infarction. No evidence of any stress-induced ischemia. Normal left ventricular systolic function. -Cardiac catheterization performed 10/25/2022 revealed mild nonobstructive c oronary artery disease. 06/17/2024. Patient is seen and examined on the cardiac stepdown unit. Patient is complaining of increased edema from yesterday to his feet and his feet feeling sore and we will ask for attending to address possible cellulitis of the lower extremities. 1 dose of IV Lasix will be ordered. VQ scan was low probability for pulmonary embolism. Heart rate is at 120s and beta-gurjit will be increased, amiodarone switched to oral. Blood pressure 93/68, pulse ox 96% on room air. Repeat blood work reveals hemoglobin 10.7, sodium 133, potassium 5.4, BUN 44 creatinine 1.44. 06/18/2024 Patient seen and examined. Patient states that his breathing is okay. His feet are still bothering him but the lower extremity edema is improved. He has been started on IV antibiotics. Blood pressure 95/68, heart rate 114, pulse ox 98% on room air. Repeat hemoglobin is 10.7, BUN 37 creatinine 1.41. 06/19/2024 Patient is seen and examined. He denies any new complaints. No chest pain no palpitations. Feet are improved, no lower extremity edema. Breathing status is stable. Blood pressure 137/96, heart rate 99, pulse ox 95% on room air. Repeat blood work reveals hemoglobin 10.7, BUN 32, creatinine 1.38, sodium 134 and potassium 4.7. Patient remains in atrial fibrillation with controlled rate. Physical examination: Gen: This is a 78-year-old male in no acute distress VS: reviewed HEENT: Head is atraumatic, normocephalic. Pupils equal, round. Sclerae is anicteric. NECK: Supple. No JVD. LUNGS: Clear to auscultation. No wheezes or rhonchi. No intercostal retraction s. HEART: Irregular rate and rhythm. Systolic murmur. ABDOMEN: Soft No tenderness. EXTREMITIES: No pedal edema. No calf tenderness. NEUROLOGICAL: Patient is awake, alert and oriented x3. Assessment: Mild acute systolic heart failure Permanent A-fib with RVR History of CAD Nonischemic cardiomyopathy status post AICD with known EF of 35 to 40% Valvular heart disease with aortic stenosis and regurgitation, mitral regurgitation Dilated ascending aorta Hypertension Dyslipidemia Chronic kidney disease stage III Overweight Possible lower extremity cellulitis, attending to address Plan: Continue patient's home cardiac medications amiodarone decreased to 200 mg twice daily, Eliquis 5 mg twice daily, Lasix 40 mg twice daily, Entresto 24-26 mg twice daily Continue Toprol XL 100 mg twice daily Discontinue Aldactone due to hypotension Patient is cleared for discharge from cardiology May follow-up in the office with Dr. Jay in 1 to 2 weeks. Nurse practitioner note has been reviewed, I agree with documented findings and plan of care. Patient was seen and examined. Objective - Vital Signs Vital signs: Vital Signs Temp 97.5 F L 06/19/24 08:00 Pulse 99 06/19/24 08:00 Resp 18 06/19/24 08:00 BP 137/96 06/19/24 08:00 Pulse Ox 95 06/19/24 08:00 FiO2 Intake & Output 06/18/24 06/19/24 06/19/24 18:59 06:59 18:59 Intake Total 476 220 Balance 476 220 Weight 137.8 kg Intake: Oral 476 220 Other: Voiding Method Toilet Toilet # Voids 2 1 # Bowel Movements 1 - Labs CBC & Chem 7: 06/19/24 08:31 06/19/24 08:31
[2024-06-19] MEDS ORDERED: FUROSEMIDE 40 MG TAB PO SCH (16:00)
== END 2024-06-19 12:43 | disposition home or self-care (01) | DRG 291 ==
LOC: EC 12:01 → 3SCARD 17:51
PROVIDERS: ADMIT Internal Medicine; ATTEND Internal Medicine
DX: I13.0 Hypertensive heart and chronic kidney disease with heart failure and stage 1 through stage 4 chronic kidney disease, or unspecified chronic kidney disease (principal); I50.23 Acute on chronic systolic (congestive) heart failure; I48.21 Permanent atrial fibrillation; L03.116 Cellulitis of left lower limb; L03.115 Cellulitis of right lower limb; I25.10 Atherosclerotic heart disease of native coronary artery without angina pectoris; I25.2 Old myocardial infarction; I42.8 Other cardiomyopathies; I45.10 Unspecified right bundle-branch block; N18.30 Chronic kidney disease, stage 3 unspecified; E66.3 Overweight; E78.5 Hyperlipidemia, unspecified; I08.0 Rheumatic disorders of both mitral and aortic valves; I77.819 Aortic ectasia, unspecified site; Z79.01 Long term (current) use of anticoagulants; Z79.899 Other long term (current) drug therapy; Z87.891 Personal history of nicotine dependence; Z95.810 Presence of automatic (implantable) cardiac defibrillator
CPT/HCPCS: 36415; 36600; 71046; 78582; 80053; 83605; 83735; 83880; 84484; 84550; 85025; 85379; 85610; 85730; 87636; 93005; 94760; 96365; 96366; 96367; 96368; 99291

== ENCOUNTER → 2024-10-02 | Outpatient (CLI) | payer MEDICARE ==
--- NOTE | 2024-10-02 14:53 | NM ---
EXAMINATION TYPE: NM bone scan whole body DATE OF EXAM: 10/02/2024 COMPARISON: Prior whole body bone scan January 15, 2023. Outside thoracic spine x-ray September 28, 2024 CLINICAL INDICATION: Male, 78 years old with history of S22.060A COMPRESSION FRACTURE OF T7-T8 VERTEB RA; Delayed whole-body scanning was performed following the injection of 25.6 mCi Tc 99m MDP. Images acq uired 3.5 hours post injection. FINDINGS: New increased radiotracer uptake at roughly the T9 vertebra is suspicious for acute/subacute compress ion type fracture at this level. There are additional mild/moderate presumed chronic compression type fractures in the midthoracic spine noted on outside radiograph. Persistent lucency right shoulder and bilateral knee joints consistent with joint replacement. Persis tent radiotracer uptake sternoclavicular joints right greater than left and multilevel cervical spine likely reflecting degenerative change. Persistent multifocal calvarial uptake of uncertain etiology. Possible hyperostosis. IMPRESSION: As above. [facility], , 10/02/2024 2:51 PM
== END | disposition home or self-care (01) ==
LOC: RADNMMAIN 09:33
PROVIDERS: ATTEND Physical Medicine & Rehabilitation
DX: S22.060A Wedge compression fracture of T7-T8 vertebra, initial encounter for closed fracture (principal); S22.070A Wedge compression fracture of T9-T10 vertebra, initial encounter for closed fracture; M48.062 Spinal stenosis, lumbar region with neurogenic claudication; X58.XXXA Exposure to other specified factors, initial encounter
CPT/HCPCS: 78306; A9503

== ENCOUNTER 2024-10-28 17:41 | Emergency (ER) | payer MEDICARE ==
[2024-10-28 17:52] VITALS: TEMP 97.8
--- NOTE | 2024-10-28 19:00 | ED ---
Fall HPI - General Chief Complaint: Fall Stated Complaint: Fall on thinners Time Seen by Provider: 10/28/24 18:41 Source: patient, family, RN notes reviewed Mode of arrival: wheelchair Limitations: no limitations - History of Present Illness Initial Comments: This is a 78-year-old male who presents to the emergency department for abdominal pain. Patient tripped and fell 3 days ago and landed on his abdomen. He had some discomfort over this area initially, but states that it has since started to increase. He has one area on the middle to right side of his abdomen that has been increasingly painful. States that anytime he tries to move or breathe the pain gets substantially worse. He is on Eliquis. Denies any nausea or vomiting. Denies hitting his head or sustaining any additional injuries. MD Complaint: fall - Related Data Home Medications Medication Instructions Recorded Confirmed Cyclobenzaprine [Flexeril] 10 mg PO TID PRN 08/10/22 06/15/24 Escitalopram [Lexapro] 20 mg PO HS 08/10/22 06/15/24 Famotidine [Pepcid] 20 mg PO BID 08/10/22 06/15/24 Cholecalciferol [Vitamin D3 (25 50 mcg PO DAILY 06/09/24 06/15/24 Mcg = 1000 Iu)] Sacubitril/Valsartan [Entresto 24 1 tab PO BID 06/09/24 06/15/24 mg-26 mg Tablet] Tamsulosin HCl [Flomax] 0.4 mg PO HS 06/09/24 06/15/24 Previous Rx's Medication Instructions Recorded Apixaban [Eliquis] 5 mg PO BID tab 08/18/22 Amiodarone [Cordarone] 200 mg PO BID 30 Days #60 tab 06/19/24 Cephalexin [Keflex] 250 mg PO Q8HR 7 Days #21 capsule 06/19/24 Furosemide [Lasix] 40 mg PO BID@0900,1600 30 Days #60 06/19/24 tab Metoprolol Succinate (ER) [Toprol 100 mg PO BID 30 Days #60 tab 06/19/24 XL] Lidocaine 5% Patch [Lidoderm 5% 1 patch TOPICAL DAILY PRN #30 patch 10/28/24 Patch] Allergies Allergy/AdvReac Type Severity Reaction Status Date / Time carvedilol [From Coreg] Allergy per PCP Verified 10/28/24 17:52 office Iodinated Contrast Media Allergy Itching Verified 10/28/24 17:52 Review of Systems ROS Statement: Those systems with pertinent positive or pertinent negative responses have been documented in the HPI. ROS Other: All systems not noted in ROS Statement are negative. Past Medical History Past Medical History: Atrial Fibrillation, Heart Failure, Hypertension Additional Past Medical History / Comment(s): aortic aneurysm History of Any Multi-Drug Resistant Organisms: None Reported Past Surgical History: AICD, Bariatric Surgery, Cholecystectomy, Pacemaker Past Anesthesia/Blood Transfusion Reactions: No Reported Reaction Type of Cardiac Device: Permanent Pacemaker, AICD Device Placement Date:: 2010 Past Psychological History: No Psychological Hx Reported Smoking Status: Former smoker Past Alcohol Use History: Occasional Past Drug Use History: None Reported - Past Family History Father Family Medical History: Congestive Heart Failure (CHF), COPD, Diabetes Mellitus Mother Family Medical History: Congestive Heart Failure (CHF), Diabetes Mellitus General Exam Limitations: no limitations General appearance: alert, in no apparent distress Head exam: Present: atraumatic, normocephalic, normal inspection Respiratory exam: Present: normal lung sounds bilaterally. Absent: respiratory distress, wheezes, rales, rhonchi, stridor Cardiovascular Exam: Present: regular rate, normal rhythm GI/Abdominal exam: Present: soft, tenderness (Mid to right side of the abdomen). Absent: distended Neurological exam: Present: alert, oriented X3, CN II-XII intact Psychiatric exam: Present: normal affect, normal mood Skin exam: Present: warm, dry, intact, normal color. Absent: rash Course Vital Signs 10/28/24 10/28/24 10/28/24 17:48 20:38 22:00 Temperature 97.8 F Pulse Rate 106 H 82 77 Respiratory 18 15 18 Rate Blood Pressure 106/73 114/89 110/80 O2 Sat by Pulse 97 98 95 Oximetry Medical Decision Making - Medical Decision Making This is a 78-year-old male who presents to the emergency department for abdominal pain. Was pt. sent in by a medical professional or institution? @ -No Did you speak to anyone other than the patient for history? @ -No Did you review nursing and triage notes? @ -Yes, and I agree, it is accurate with regards to the patient's symptoms. Were old charts reviewed? @ -No Differential Diagnosis? @ -Differential Abdominal Pain Men: Appendicitis, cholecystitis, diverticulosis, ischemic bowel, pancreatitis, hepatitis, UTI, gastroenteritis, AAA, incarcerated hernia, bowel obstruction, constipation, inflammatory bowel, hepatitis, peptic ulcer disease, splenic infarction, perforated viscus, testicular torsion, this is not meant to be an all-inclusive list EKG interpreted by me (3pts min.)? @ -Not obtained X-rays interpreted by me (1pt min.)? @ -X-ray of the right rib cage and PA chest obtained. My interpretation identifies right-sided rib fractures. CT interpreted by me (1pt min.)? @ -CT scan of the abdomen and pelvis obtained. My interpretation identifies no intra-abdominal hematoma. U/S interpreted by me (1pt. min.)? @ -Not obtained What testing was considered but not performed? (CT, X-rays, U/S, labs)? Why? @ -None What meds were considered but not given? Why? @ -None Did you discuss the management of the patient with other professionals? @ -No Did you reconcile home meds? @ -No Was smoking cessation discussed for >3mins.? @ -No Was critical care preformed (if so, how long)? @ -No Were there social determinants of health that impacted care today? How? (Homelessness, low income, unemployed, alcoholism, drug addiction, transportation, low edu. Level, literacy, decrease access to med. care, assisted, rehab)? @ -No Was there de-escalation of care discussed even if they declined? (Discuss DNR or withdrawal of care, Hospice)? @ -No What co-morbidities impacted this encounter? (DM, HTN, Smoking, COPD, CAD, Cancer, CVA, Hep., AIDS, mental health diagnosis, sleep apnea, morbid obesity)? @ -A-fib, HTN Was patient admitted / discharged? @ -Discharged. Lab work unremarkable. We started with a CTA of the abdomen and pelvis to evaluate for any intra-abdominal trauma where his pain was located. No hematoma or vascular injury was identified. He was found to have cortical buckling of ribs 6 through 9 on the right anteriorly. On reevaluation he was tender in this area. Chest x-ray subsequently obtained. Redemonstration of rib fractures 6 through 9 were identified without other acute process. Pain was treated in the emergency department. When discussing disposition, he advised that he would rather go home, but is concerned about pain control. He does take hydrocodone 10 mg every 4 to 6 hours as well as Flexeril for pain. However, he has been on these medications for years. 25 mcg fentanyl patch applied. Advised that when he has this in place to only take his hydrocodone for breakthrough pain. He is instructed to remove this in 72 hours. He is also advised to take several deep breaths an hour despite the pain to reduce the risk of developing a secondary pneumonia. Lidocaine patches prescribed to see if that offers any additional relief. Advised follow-up with his primary care provider in the next couple of days to discuss if any adjustments can be made to his pain regimen given the acute injury. Patient discharged home in stable condition. Case discussed with ED attending Dr. Guardado. Return precautions reviewed in depth, the patient is instructed to return to the emergency department with any new, worsening, or concerning symptoms. Patient verbalized understanding. Undiagnosed new problem with uncertain prognosis? @ -None Drug Therapy requiring intensive monitoring for toxicity (Heparin, Nitro, Insulin, Cardizem)? @ -None Were any procedures done? @ -None Diagnosis/symptom? @ -Fall, multiple right-sided rib fractures Acute, or Chronic, or Acute on Chronic? @ -Acute Uncomplicated (without systemic symptoms) or Complicated (systemic symptoms)? @ -Uncomplicated Side effects of treatment? @ -None Exacerbation, Progression, or Severe Exacerbation] @ -Not applicable Poses a threat to life or bodily function? @ -The pain may limit his ability to function to some extent. - Lab Data Result diagrams: 10/28/24 19:04 10/28/24 19:04 Lab Results 10/28/24 10/28/24 10/28/24 Range/Units 19:04 19:04 19:04 WBC 8.30 (4.50-10.00) 10*3/uL RBC 5.31 (4.40-5.60) 10*6/uL Hgb 14.3 (13.0-17.0) g/dL Hct 44.9 (39.6-50.0) % MCV 84.6 (80.0-97.0) fL MCH 26.9 L (27.0-32.0) pg MCHC 31.8 L (32.0-37.0) g/dL Plt Count 229 (140-440) 10*3/uL MPV 9.9 (9.5-12.2) fL Immature Gran % (Auto) 0.4 % Neutrophils % 69.5 % Lymphocytes % 17.7 % Monocytes % 9.8 % Eosinophils % 1.9 % Basophils % 0.7 % Immature Gran # 0.03 (0.00-0.04) 10*3/uL Neutrophils # 5.77 (1.80-7.70) 10*3/uL Lymphocytes # 1.47 (0.90-5.00) 10*3/uL Monocytes # 0.81 (0.20-1.00) 10*3/uL Eosinophils # 0.16 (0.04-0.35) 10*3/uL Basophils # 0.06 (0.00-0.10) 10*3/uL Manual Slide Review Performed Anisocytosis (manual) Present PT 10.1 (10.0-12.5) sec INR 0.9 (<1.2) APTT 22.9 (22.0-30.0) sec Sodium 138 (137-145) mmol/L Potassium 5.0 (3.5-5.1) mmol/L Chloride 104 (98-107) mmol/L Carbon Dioxide 32 H (22-30) mmol/L Anion Gap 2 mmol/L BUN 29 H (9-20) mg/dL Creatinine 1.25 (0.66-1.25) mg/dL Est GFR (CKD-EPI)AfAm 63 (>60 ml/min/1.73 sqM) Est GFR (CKD-EPI)NonAf 55 (>60 ml/min/1.73 sqM) Glucose 100 H (74-99) mg/dL Plasma Lactic Acid William (0.7-2.0) mmol/L Calcium 9.1 (8.4-10.2) mg/dL Total Bilirubin 0.5 (0.2-1.3) mg/dL AST 24 (17-59) U/L ALT 25 (4-49) U/L Alkaline Phosphatase 115 (38-126) U/L Total Protein 6.0 L (6.3-8.2) g/dL Albumin 3.3 L (3.5-5.0) g/dL Lipase 44 (23-300) U/L // Range/Units 19:04 WBC (4.50-10.00) 10*3/uL RBC (4.40-5.60) 10*6/uL Hgb (13.0-17.0) g/dL Hct (39.6-50.0) % MCV (80.0-97.0) fL MCH (27.0-32.0) pg MCHC (32.0-37.0) g/dL Plt Count (140-440) 10*3/uL MPV (9.5-12.2) fL Immature Gran % (Auto) % Neutrophils % % Lymphocytes % % Monocytes % % Eosinophils % % Basophils % % Immature Gran # (0.00-0.04) 10*3/uL Neutrophils # (1.80-7.70) 10*3/uL Lymphocytes # (0.90-5.00) 10*3/uL Monocytes # (0.20-1.00) 10*3/uL Eosinophils # (0.04-0.35) 10*3/uL Basophils # (0.00-0.10) 10*3/uL Manual Slide Review Anisocytosis (manual) PT (10.0-12.5) sec INR (<1.2) APTT (22.0-30.0) sec Sodium (137-145) mmol/L Potassium (3.5-5.1) mmol/L Chloride (98-107) mmol/L Carbon Dioxide (22-30) mmol/L Anion Gap mmol/L BUN (9-20) mg/dL Creatinine (0.66-1.25) mg/dL Est GFR (CKD-EPI)AfAm (>60 ml/min/1.73 sqM) Est GFR (CKD-EPI)NonAf (>60 ml/min/1.73 sqM) Glucose (74-99) mg/dL Plasma Lactic Acid William 1.1 (0.7-2.0) mmol/L Calcium (8.4-10.2) mg/dL Total Bilirubin (0.2-1.3) mg/dL AST (17-59) U/L ALT (4-49) U/L Alkaline Phosphatase (38-126) U/L Total Protein (6.3-8.2) g/dL Albumin (3.5-5.0) g/dL Lipase (23-300) U/L - Radiology Data Radiology results: report reviewed, image reviewed Disposition Clinical Impression: Fall, Multiple fractures of ribs Disposition: HOME SELF-CARE Instructions (If sedation given, give patient instructions): Rib Fracture (ED) Additional Instructions: Return to the emergency department with any new, worsening, or concerning symptoms. When the fentanyl patch begins to work, just take your hydrocodone for breakthrough pain. Make sure you remove this in 72 hours. Continue taking your Flexeril. You can also apply the lidocaine patches daily. Make sure you take several deep breaths an hour despite the pain to reduce the risk of developing a secondary pneumonia. Follow up with your primary care provider in 1-2 days and see if any adjustments to your pain medication can be made given the new injury. Prescriptions: Lidocaine 5% Patch [Lidoderm 5% Patch] 1 patch TOPICAL DAILY PRN #30 patch PRN Reason: Pain Is patient prescribed a controlled substance at d/c from ED?: No Referrals: Lashaun Castro MD [Primary Care Provider] - 1-2 days Time of Disposition: 22:22
[2024-10-28 19:12] LABS: Basophils # (A) 0.06 10*3/uL (0.00-0.10); Basophils % (A) 0.7 %; Eosinophils # (A) 0.16 10*3/uL (0.04-0.35); Eosinophils % (A) 1.9 %; HCT 44.9 % (39.6-50.0); HGB 14.3 g/dL (13.0-17.0); Lymphocytes # (A) 1.47 10*3/uL (0.90-5.00); Lymphocytes % (A) 17.7 %; MCH 26.9 pg (27.0-32.0); MCHC 31.8 g/dL (32.0-37.0); MCV 84.6 fL (80.0-97.0); Mean Platelet Volume 9.9 fL (9.5-12.2); Monocytes # (A) 0.81 10*3/uL (0.20-1.00); Monocytes % (A) 9.8 %; Neutrophils # (A) 5.77 10*3/uL (1.80-7.70); Neutrophils % (A) 69.5 %; Platelet Count 229 10*3/uL (140-440); RBC 5.31 10*6/uL (4.40-5.60); RDW 24.5 % (11.5-14.5)
[2024-10-28] MEDS: FAMOTIDINE 20 MG/2 ML VIAL IV STA (19:21)
[2024-10-28] MEDS: methylPREDNISolone SOD SUCCI 125 MG/2 ML VIAL IV STA (19:23)
[2024-10-28] MEDS: diphenhydrAMINE 50 MG/ML 1 ML VIAL IVP STA (19:26)
[2024-10-28] MEDS: HYDROmorphone 1 MG/ML 1 ML SYRINGE IVP STA ×2 (19:26→20:54)
[2024-10-28 19:32] LABS: ALT 25 U/L (4-49); AST 24 U/L (17-59); African American GFR (CKD) 63 (>60 ml/min/1.73 sqM); Albumin 3.3 g/dL (3.5-5.0); Alkaline Phosphatase 115 U/L (38-126); Anion Gap 2 mmol/L; Blood Urea Nitrogen 29 mg/dL (9-20); Calcium 9.1 mg/dL (8.4-10.2); Carbon Dioxide 32 mmol/L (22-30); Chloride 104 mmol/L (98-107); Glucose 100 mg/dL (74-99); Lipase 44 U/L (23-300); Non-African American GFR(CKD) 55 (>60 ml/min/1.73 sqM); Sodium 138 mmol/L (137-145); Total Bilirubin 0.5 mg/dL (0.2-1.3)
[2024-10-28 19:33] LABS: INR 0.9 (<1.2); Partial Thromboplastin Time 22.9 sec (22.0-30.0); Prothrombin Time 10.1 sec (10.0-12.5)
[2024-10-28 20:17] LABS: Anisocytosis (M) Present
--- NOTE | 2024-10-28 21:14 | CT ---
EXAMINATION TYPE: CT angio abdomen pelvis CT abdomen and pelvis without contrast. CT angiogram abdomen and pelvis with contrast. DATE OF EXAM: 10/28/2024 8:24 PM COMPARISON: None. CLINICAL INDICATION: Male, 78 years old with history of Abdominal pain and swelling after trauma, Abd ominal pain and swelling after fall. TECHNIQUE: CT angio abdomen pelvis CT noncontrast abdomen pelvis and bilateral lower extremity followed by CT angiogram abdomen and pelv is and bilateral lower extremities. Multiple thin slice sub-millimeter images were obtained before and after administration of contrast. 3-D reconstructed images and maximum intensity projection images were obtained on a separate works tation. CT angio abdomen pelvis CT Contrast: Contrast used:80cc mL of Isovue 370 with IV Contrast, Oral contrast used: without Oral Contrast None CT DLP: 5314.2 mGycm, Automated exposure control for dose reduction was used. FINDINGS: CTA Abdomen and pelvis: The abdominal aorta does not demonstrate aneurysmal dilatation. Atherosclero tic plaquing is identified within the abdominal aorta. The origins of the superior mesenteric artery , renal arteries, inferior mesenteric artery, and celiac axis are patent. The iliac vessels are norm al in morphology CTA Lower extremities: Right: The common femoral and superficial femoral arteries are patent. The popliteal artery is patent . Anterior and posterior tibial arteries as well as the peroneal artery are patent. Anterior and post erior tibial arteries cross the ankle. Left: The common femoral and superficial femoral arteries are patent. The popliteal artery is patent. Anterior and posterior tibial arteries as well as the peroneal artery are patent. Anterior and poste rior tibial arteries cross the ankle. LOWER CHEST: The heart is enlarged for size there is cardiac conduction leads terminating in right ve ntricle and right atrium. Aortic valve calcifications present coronary artery calcifications are pres ent. No evidence of focal consolidation, pneumothorax or pleural effusion. LIVER: Unremarkable GALLBLADDER AND BILE DUCTS: The gallbladder is surgically absent. PANCREAS: Unremarkable. SPLEEN: Unremarkable. ADRENAL GLANDS: Unremarkable. KIDNEYS AND URETERS: No evidence of hydronephrosis or renal calculus. The ureters are unremarkable. PELVIS BLADDER: Unremarkable REPRODUCTIVE: Prostate is enlarged in size measuring 5.0 cm in transverse dimension. ABDOMEN & PELVIS STOMACH AND BOWEL: No evidence of bowel obstruction. PERITONEUM: No evidence of pneumoperitoneum or free fluid. VASCULATURE: No evidence of aortic aneurysm. MUSCULOSKELETAL: Compression deformity with greater than 50% loss of L2 with compression deformity of T9 vertebral body also present with 25-50% height loss. Coronal buckling of the ribs 6 through 9 ant eriorly. LYMPH NODES: No gross evidence for lymphadenopathy. SOFT TISSUE/ABDOMINAL WALL: Fat-containing hernias right greater than left.r IMPRESSION: 1. No evidence for hematoma or vascular occlusion. No evidence for dissection or aneurysm. 2. Cortical buckling of right ribs 6 through 9 and December correlate for undisplaced fractures. 3. Severe atherosclerotic disease. 4. Progression of compression deformity T9 vertebral body compared to prior on 07/12/2022. Correlate with MRI and back pain. 5. Moderate to severe cardiomegaly with aortic valve calcifications coronary artery calcifications p resent. 6. Prostatomegaly, correlate with serum PSA. 7. Large right fat containing inguinal hernia and smaller left inguinal hernia containing fat. 8. The appendix is normal. 9. No obstructive uropathy or renal calculus. 10. Stable compression deformity of the L2 vertebral body with 50% height loss.. [facility], , 10/28/2024 9:12 PM
--- NOTE | 2024-10-28 22:05 | XR ---
EXAMINATION TYPE: XR ribs RT w pa chest xray DATE OF EXAM: 10/28/2024 9:54 PM COMPARISON: CT CLINICAL INDICATION: Male, 78 years old with history of Fall, fractures on CT; PH[facility], pain TECHNIQUE: XR ribs RT w pa chest xray; Frontal and oblique views of the ribs with frontal chest radio graph. FINDINGS/IMPRESSION: 1. Cortical buckling of the right ribs 6 through 9 is thought to be confirmed at least at least some of the levels suggesting nondisplaced fractures as seen on CT. Correlate with pain. 2. Moderate cardiomegaly. Conduction leads appear in appropriate position. 3. Right shoulder arthroplasty appears intact. [facility], , 10/28/2024 10:03 PM
[2024-10-28] MEDS: LIDOCAINE 4% PATCH TOPICAL ONE (22:50)
[2024-10-28 23:17] VITALS: BP 110/80; PULSE 77; RESP 18
== END 2024-10-28 23:32 | disposition home or self-care (01) ==
LOC: EC 17:41
DX: S22.41XA Multiple fractures of ribs, right side, initial encounter for closed fracture (principal); I11.0 Hypertensive heart disease with heart failure; I50.9 Heart failure, unspecified; I48.91 Unspecified atrial fibrillation; Z87.891 Personal history of nicotine dependence; Z79.01 Long term (current) use of anticoagulants; Z91.041 Radiographic dye allergy status; Z88.8 Allergy status to other drugs, medicaments and biological substances; W01.0XXA Fall on same level from slipping, tripping and stumbling without subsequent striking against object, initial encounter
CPT/HCPCS: 36415; 80053; 83605; 83690; 85025; 85610; 85730; 71101; 74174; 99284; 96374; 96375 ×3; 96376; J1200; J1171; J2919; J1308

== ENCOUNTER 2024-11-13 13:57 | Inpatient (IN) | payer MEDICARE ==
--- NOTE | 2024-11-13 14:06 | ED ---
General Adult HPI - General Stated complaint: Fall Source: patient, EMS, RN notes reviewed Mode of arrival: EMS Limitations: no limitations - History of Present Illness Initial comments: Patient is a 78-year-old male present to the emergency department with concerns with fall. Patient is unclear if he may have passed out but thinks he may have. Patient did strike his head. Patient is on Eliquis with history of A-fib. Patient states at this point he feels pretty good. Patient has had several fall s over the past few months. No chest or back pain. No abdominal pain. - Related Data Home Medications Medication Instructions Recorded Confirmed Cyclobenzaprine [Flexeril] 10 mg PO TID PRN 08/10/22 11/13/24 Escitalopram [Lexapro] 20 mg PO HS 08/10/22 11/13/24 Famotidine [Pepcid] 20 mg PO BID 08/10/22 11/13/24 Cholecalciferol [Vitamin D3 (25 50 mcg PO DAILY 06/09/24 11/13/24 Mcg = 1000 Iu)] Sacubitril/Valsartan [Entresto 24 1 tab PO BID 06/09/24 11/13/24 mg-26 mg Tablet] Tamsulosin HCl [Flomax] 0.4 mg PO HS 06/09/24 11/13/24 Amiodarone [Cordarone] 200 mg PO DAILY 11/13/24 11/13/24 HYDROcodone/APAP 10-325MG [Lewis 1 tab PO QID PRN 11/13/24 11/13/24 10-325] Metoprolol Succinate (ER) [Toprol 150 mg PO HS 11/13/24 11/13/24 XL] metOLazone 2.5 mg PO DAILY 11/13/24 11/13/24 metOLazone 2.5 mg PO DAILY@1600 PRN 11/13/24 11/13/24 Previous Rx's Medication Instructions Recorded Apixaban [Eliquis] 5 mg PO BID tab 08/18/22 Furosemide [Lasix] 40 mg PO BID@0900,1600 30 Days #60 06/19/24 tab Allergies Allergy/AdvReac Type Severity Reaction Status Date / Time carvedilol [From Coreg] Allergy per PCP Verified 11/13/24 17:33 office Iodinated Contrast Media Allergy Itching Verified 11/13/24 17:33 Review of Systems ROS Statement: Those systems with pertinent positive or pertinent negative responses have been documented in the HPI. ROS Other: All systems not noted in ROS Statement are negative. Constitutional: Denies: fever Eyes: Denies: eye pain ENT: Denies: ear pain Respiratory: Denies: cough, dyspnea Cardiovascular: Denies: chest pain Gastrointestinal: Denies: abdominal pain Musculoskeletal: Denies: back pain Past Medical History Past Medical History: Atrial Fibrillation, Heart Failure, Hypertension Additional Past Medical History / Comment(s): aortic aneurysm History of Any Multi-Drug Resistant Organisms: None Reported Past Surgical History: AICD, Bariatric Surgery, Cholecystectomy, Pacemaker Past Anesthesia/Blood Transfusion Reactions: No Reported Reaction Type of Cardiac Device: Permanent Pacemaker, AICD Device Placement Date:: 2010 Past Psychological History: No Psychological Hx Reported Smoking Status: Former smoker Past Alcohol Use History: Occasional Past Drug Use History: None Reported - Past Family History Father Family Medical History: Congestive Heart Failure (CHF), COPD, Diabetes Mellitus Mother Family Medical History: Congestive Heart Failure (CHF), Diabetes Mellitus General Exam Limitations: no limitations General appearance: alert, in no apparent distress Head exam: Present: normocephalic Eye exam: Present: normal appearance, PERRL, EOMI Neck exam: Present: normal inspection Respiratory exam: Present: normal lung sounds bilaterally Cardiovascular Exam: Present: regular rate, normal rhythm GI/Abdominal exam: Present: soft. Absent: tenderness Extremities exam: Present: normal inspection. Absent: pedal edema, calf tenderness Neurological exam: Present: alert, oriented X3, CN II-XII intact. Absent: motor sensory deficit Expanded Neurological exam: Present: protecting the airway Speech: Present: fluid speech Cranial nerves: EOM's Intact: Normal Motor strength exam: RUE: 5, LUE: 5, RLE: 5, LLE: 5 Eye Response: (4) open spontaneously Motor Response: (6) obeys commands Verbal Response: (5) oriented Psychiatric exam: Present: normal affect, normal mood Skin exam: Present: normal color Course Vital Signs 11/13/24 11/13/24 11/13/24 14:16 14:27 16:30 Pulse Rate 85 70 Respiratory 18 18 12 Rate Blood Pressure O2 Sat by Pulse 96 97 Oximetry 11/13/24 17:14 Pulse Rate Respiratory Rate Blood Pressure 103/69 O2 Sat by Pulse Oximetry EKG Findings - EKG Results: EKG: interpreted by ERMD (Right axis. Right bundle branch block. Wide-complex irregular rhythm. Pacemaker spikes are present. Nonspecific ST-T inferior and lateral Q waves.) Medical Decision Making - Medical Decision Making Was pt. sent in by a medical professional or institution (, AFSHAN, AIRPLANE TECHNICIAN, urgent care, hospital, or senior care...) When possible be specific @ -No Did you speak to anyone other than the patient for history (EMS, parent, family, police, friend...)? What history was obtained from this source @ -EMS help provide history including transportation and patient's fall and on blood thinner Did you review nursing and triage notes (agree or disagree)? Why? @ -I reviewed and agree with nursing and triage notes Were old charts reviewed (outside hosp., previous admission, EMS record, old EKG, old radiological studies, urgent care reports/EKG's, senior care records)? Report findings @ -No old charts were reviewed Differential Diagnosis (chest pain, altered mental status, abdominal pain women, abdominal pain men, vaginal bleeding, weakness, fever, dyspnea, syncope, head ache, dizziness, GI bleed, back pain, seizure, CVA, palpatations, mental health, musculoskeletal)? @ -Differential Syncope: Valvular disease, hypertrophic cardiomyopathy, pulmonary embolism, tamponade, tachycardia, bradycardia, [place], hypovolemia, hemorrhage, dissection, anemia, intracranial hemorrhage, seizure, hypoglycemia, carbon monoxide poisoning, this is not meant to be an all-inclusive list. EKG interpreted by me (3pts min.). @ -As above X-rays interpreted by me (1pt min.). @ -Chest x-ray with nonspecific changes CT interpreted by me (1pt min.). @ -CT brain without acute abnormality intracranial U/S interpreted by me (1pt. min.). @ -None done What testing was considered but not performed or refused? (CT, X-rays, U/S, labs)? Why? @ -None What meds were considered but not given or refused? Why? @ -None Did you discuss the management of the patient with other professionals (pro fessionals i.e. , AFSHAN, AIRPLANE TECHNICIAN, lab, RT, psych nurse, hospice social worker, spindle repairer, teacher, product safety officer, manager rn case)? Give summary @ -Case was discussed with Dr. Butts who will admit covering Dr. Berry Was smoking cessation discussed for >3mins.? @ -No Was critical care preformed (if so, how long)? @ -No Were there social determinants of health that impacted care today? How? (Homelessness, low income, unemployed, alcoholism, drug addiction, transportation, low edu. Level, literacy, decrease access to med. care, residential, rehab)? @ -No Was there de-escalation of care discussed even if they declined (Discuss DNR or withdrawal of care, Hospice)? DNR status @ -No What co-morbidities impacted this encounter? (DM, HTN, Smoking, COPD, CAD, Cancer, CVA, ARF, Chemo, Hep., AIDS, mental health diagnosis, sleep apnea, morbid obesity)? @ -None Was patient admitted / discharged? Hospital course, mention meds given and route, prescriptions, significant lab abnormalities, going to OR and other pertinent info. @ -Patient presents with syncopal episode. Head CT without intracranial trauma. Patient did have associated urinary retention and Carr catheter was placed. Patient reevaluated. Patient and family updated. Undiagnosed new problem with uncertain prognosis? @ -No Drug Therapy requiring intensive monitoring for toxicity (Heparin, Nitro, Insulin, Cardizem)? @ -No Were any procedures done? @ -No Diagnosis/symptom? @ -Syncope Acute, or Chronic, or Acute on Chronic? @ -Acute Uncomplicated (without systemic symptoms) or Complicated (systemic symptoms)? @ -Default Side effects of treatment? @ -No Exacerbation, Progression, or Severe Exacerbation? @ -No Poses a threat to life or bodily function? How? (Chest pain, [place], [place], pneumonia, PE, COPD, DKA, ARF, appy, cholecystitis, CVA, Diverticulitis, Homicidal, Suicidal, threat to staff... and all critical care pts) @ -No - Lab Data Result diagrams: 11/13/24 14:54 11/13/24 14:54 Lab Results 11/13/24 11/13/24 11/13/24 Range/Units 14:54 14:54 14:54 WBC 8.72 (4.50-10.00) 10*3/uL RBC 5.31 (4.40-5.60) 10*6/uL Hgb 14.6 (13.0-17.0) g/dL Hct 44.2 (39.6-50.0) % MCV 83.2 (80.0-97.0) fL MCH 27.5 (27.0-32.0) pg MCHC 33.0 (32.0-37.0) g/dL Plt Count 219 (140-440) 10*3/uL MPV 10.5 (9.5-12.2) fL Immature Gran % (Auto) 0.3 % Neutrophils % 65.5 % Lymphocytes % 20.4 % Monocytes % 10.9 % Eosinophils % 2.1 % Basophils % 0.8 % Immature Gran # 0.03 (0.00-0.04) 10*3/uL Neutrophils # 5.71 (1.80-7.70) 10*3/uL Lymphocytes # 1.78 (0.90-5.00) 10*3/uL Monocytes # 0.95 (0.20-1.00) 10*3/uL Eosinophils # 0.18 (0.04-0.35) 10*3/uL Basophils # 0.07 (0.00-0.10) 10*3/uL PT 11.4 (10.0-12.5) sec INR 1.0 (<1.2) APTT 22.0 (22.0-30.0) sec Sodium 133 L (137-145) mmol/L Potassium 3.6 (3.5-5.1) mmol/L Chloride 99 (98-107) mmol/L Carbon Dioxide 29 (22-30) mmol/L Anion Gap 5 mmol/L BUN 44 H (9-20) mg/dL Creatinine 1.44 H (0.66-1.25) mg/dL Est GFR (CKD-EPI)AfAm 53 (>60 ml/min/1.73 sqM) Est GFR (CKD-EPI)NonAf 46 (>60 ml/min/1.73 sqM) Glucose 89 (74-99) mg/dL Calcium 8.7 (8.4-10.2) mg/dL Magnesium 1.9 (1.6-2.3) mg/dL Total Bilirubin 0.8 (0.2-1.3) mg/dL AST 29 (17-59) U/L ALT 22 (4-49) U/L Alkaline Phosphatase 122 (38-126) U/L Troponin I (0.000-0.034) ng/mL Total Protein 5.5 L (6.3-8.2) g/dL Albumin 3.0 L (3.5-5.0) g/dL 11/13/24 Range/Units 15:07 WBC (4.50-10.00) 10*3/uL RBC (4.40-5.60) 10*6/uL Hgb (13.0-17.0) g/dL Hct (39.6-50.0) % MCV (80.0-97.0) fL MCH (27.0-32.0) pg MCHC (32.0-37.0) g/dL Plt Count (140-440) 10*3/uL MPV (9.5-12.2) fL Immature Gran % (Auto) % Neutrophils % % Lymphocytes % % Monocytes % % Eosinophils % % Basophils % % Immature Gran # (0.00-0.04) 10*3/uL Neutrophils # (1.80-7.70) 10*3/uL Lymphocytes # (0.90-5.00) 10*3/uL Monocytes # (0.20-1.00) 10*3/uL Eosinophils # (0.04-0.35) 10*3/uL Basophils # (0.00-0.10) 10*3/uL PT (10.0-12.5) sec INR (<1.2) APTT (22.0-30.0) sec Sodium (137-145) mmol/L Potassium (3.5-5.1) mmol/L Chloride (98-107) mmol/L Carbon Dioxide (22-30) mmol/L Anion Gap mmol/L BUN (9-20) mg/dL Creatinine (0.66-1.25) mg/dL Est GFR (CKD-EPI)AfAm (>60 ml/min/1.73 sqM) Est GFR (CKD-EPI)NonAf (>60 ml/min/1.73 sqM) Glucose (74-99) mg/dL Calcium (8.4-10.2) mg/dL Magnesium (1.6-2.3) mg/dL Total Bilirubin (0.2-1.3) mg/dL AST (17-59) U/L ALT (4-49) U/L Alkaline Phosphatase (38-126) U/L Troponin I <0.012 (0.000-0.034) ng/mL Total Protein (6.3-8.2) g/dL Albumin (3.5-5.0) g/dL Disposition Clinical Impression: Syncope Disposition: ADMITTED IP TO THIS HOSP Is patient prescribed a controlled substance at d/c from ED?: No Referrals: Lashaun Castro MD [Primary Care Provider] - 1-2 days Time of Disposition: 17:55
--- NOTE | 2024-11-13 14:39 | CT ---
EXAMINATION TYPE: CT brain cspine wo con CT DLP: 1990.9 mGycm, Automated exposure control for dose reduction was used. DATE OF EXAM: 11/13/2024 2:17 PM COMPARISON: CT cervical spine 02/28/2023. CLINICAL INDICATION:Male, 78 years old with history of fall; Fall on thinners. Code Coag., pain TECHNIQUE: Brain: Multiple axial CT images of the brain were obtained without IV contrast. Cspine: Axial CT images from the skull base to the inferior aspect of T2 we obtained without intraven ous contrast. Coronal and sagittal reformatted images were also reviewed. FINDINGS: Brain: Extra-axial spaces: No abnormal extra-axial fluid collections. Ventricular system: Dilatation in proportion to cerebral atrophy. Cerebral parenchyma: Cerebral atrophy. No acute intraparenchymal hemorrhage or mass effect. The guardado -white junction is well differentiated. Confluent hypoattenuating areas are seen within the periventr icular subcortical white matter. Cerebellum: Unremarkable. Mass effect: No evidence of midline shift. Intracranial vasculature: Atherosclerotic calcifications of the intracranial vessels. Soft tissues: Normal. Calvarium/osseous structures: No depressed skull fracture. Paranasal sinuses and mastoid air cells: Clear. Visualized orbits: Orbital contents are intact. Cervical spine: Fracture: None. Osseous structures: Postsurgical changes from ACDF involving C5-C7. Hardware appears intact. Anterior osteophytosis at C4-C5. The level facet arthropathy. Multilevel disc space narrowing with endplate s clerosis. Benign bone islands at the left pedicle at T2, right C1, and left C5. Vertebral alignment: Within normal limits. Spinal canal/Neural Foramina: Disc osteophyte complexes at at C3-C4 and C4-C5 with at least mild spin al canal stenosis. Facet joint uncovertebral joint arthropathy scattered throughout the cervical spin e with varying degrees of neural foraminal stenosis. Neck soft tissues: Prevertebral soft tissues are within normal limits. Other: The airway is patent. The lung apices are clear. Bilateral carotid bulb calcifications. Partia l visualization of cardiac pacemaking leads. Macrocalcification within the right thyroid lobe. IMPRESSION: 1. No acute intracranial process. 2. Nonspecific moderate to advanced white matter changes, likely secondary to chronic small vessel is chemic disease. 3. No evidence of cervical spine fracture. 4. Post surgical changes of ACDF C5-C7. Hardware appears intact. 5. Mild multilevel degenerative disc disease at C3-C4 and C4-C5. [facility], , 11/13/2024 2:37 PM
[2024-11-13 15:01] LABS: Basophils # (A) 0.07 10*3/uL (0.00-0.10); Basophils % (A) 0.8 %; Eosinophils # (A) 0.18 10*3/uL (0.04-0.35); Eosinophils % (A) 2.1 %; HCT 44.2 % (39.6-50.0); HGB 14.6 g/dL (13.0-17.0); Lymphocytes # (A) 1.78 10*3/uL (0.90-5.00); Lymphocytes % (A) 20.4 %; MCH 27.5 pg (27.0-32.0); MCV 83.2 fL (80.0-97.0); Mean Platelet Volume 10.5 fL (9.5-12.2); Monocytes # (A) 0.95 10*3/uL (0.20-1.00); Monocytes % (A) 10.9 %; Neutrophils # (A) 5.71 10*3/uL (1.80-7.70); Neutrophils % (A) 65.5 %; Platelet Count 219 10*3/uL (140-440); RBC 5.31 10*6/uL (4.40-5.60); RDW 21.7 % (11.5-14.5); WBC 8.72 10*3/uL (4.50-10.00)
[2024-11-13 15:12] LABS: ALT 22 U/L (4-49); AST 29 U/L (17-59); African American GFR (CKD) 53 (>60 ml/min/1.73 sqM); Alkaline Phosphatase 122 U/L (38-126); Anion Gap 5 mmol/L; Blood Urea Nitrogen 44 mg/dL (9-20); Calcium 8.7 mg/dL (8.4-10.2); Carbon Dioxide 29 mmol/L (22-30); Chloride 99 mmol/L (98-107); Glucose 89 mg/dL (74-99); Magnesium 1.9 mg/dL (1.6-2.3); Non-African American GFR(CKD) 46 (>60 ml/min/1.73 sqM); Potassium 3.6 mmol/L (3.5-5.1); Sodium 133 mmol/L (137-145); Total Bilirubin 0.8 mg/dL (0.2-1.3); Total Protein 5.5 g/dL (6.3-8.2)
[2024-11-13 15:34] LABS: Prothrombin Time 11.4 sec (10.0-12.5)
--- NOTE | 2024-11-13 16:22 | XR ---
EXAMINATION TYPE: XR chest 2V DATE OF EXAM: 11/13/2024 4:01 PM COMPARISON: 10/28/2024 CLINICAL INDICATION: Male, 78 years old with history of syncope, shortness of breath, TECHNIQUE: AP and lateral views FINDINGS: Partially visualized reverse right shoulder arthroplasty. Left anterior chest wall AICD generator. Th e right atrial and right ventricular leads are not well seen due to underpenetration. Coronary sinus lead seen. Prominent hypoventilatory changes with crowded vascular markings. Interstitial prominence. High density nodule right upper lobe unchanged, likely a benign calcified granuloma. Patchy bibasila r opacities and perihilar densities. ACDF hardware. No pleural effusion. IMPRESSION: Portable exam further limited by marked hypoventilatory changes. Correlate for CHF with pulmonary vas cular congestion. [facility], , 11/13/2024 4:20 PM
[2024-11-13] MEDS ORDERED: NALOXONE 0.4 MG/ML 1 ML VIAL IV PRN (17:55)
[2024-11-13] MEDS: SODIUM CHLORIDE 0.9% 1,000 ML IV SCH (20:33)
[2024-11-13] MEDS: ESCITALOPRAM 20 MG TAB PO SCH (21:27)
[2024-11-13] MEDS: FAMOTIDINE 20 MG TAB PO SCH (21:27)
[2024-11-13] MEDS: TAMSULOSIN 0.4 MG CAP.ER.24H PO SCH (21:27)
[2024-11-14] MEDS: CYCLOBENZAPRINE 10 MG TAB PO PRN (02:11)
[2024-11-14] MEDS: SACUBITRIL/VALSARTAN 24 MG-26 MG TABLET PO SCH (05:55)
[2024-11-14] MEDS: METOPROLOL SUCCINATE (ER) 50 MG TAB.ER.24H PO SCH (05:55)
[2024-11-14 08:21] LABS: Basophils # (A) 0.08 10*3/uL (0.00-0.10); Eosinophils # (A) 0.26 10*3/uL (0.04-0.35); Eosinophils % (A) 3.3 %; HCT 43.5 % (39.6-50.0); HGB 14.1 g/dL (13.0-17.0); Lymphocytes # (A) 1.75 10*3/uL (0.90-5.00); Lymphocytes % (A) 22.3 %; MCH 27.3 pg (27.0-32.0); MCHC 32.4 g/dL (32.0-37.0); MCV 84.1 fL (80.0-97.0); Mean Platelet Volume 10.3 fL (9.5-12.2); Monocytes # (A) 1.05 10*3/uL (0.20-1.00); Monocytes % (A) 13.4 %; Neutrophils # (A) 4.67 10*3/uL (1.80-7.70); Neutrophils % (A) 59.6 %; Platelet Count 201 10*3/uL (140-440); RBC 5.17 10*6/uL (4.40-5.60); RDW 21.2 % (11.5-14.5); WBC 7.84 10*3/uL (4.50-10.00)
[2024-11-14] MEDS: AMIODARONE 200 MG TAB PO SCH (08:46)
[2024-11-14] MEDS: FUROSEMIDE 40 MG TAB PO SCH (08:46)
[2024-11-14] MEDS: CHOLECALCIFEROL 25 MCG (1000 IU) TABLET PO SCH (08:46)
[2024-11-14] MEDS: metOLazone 2.5 MG TAB PO SCH (08:49)
[2024-11-14 08:51] LABS: ALT 21 U/L (4-49); AST 28 U/L (17-59); African American GFR (CKD) 61 (>60 ml/min/1.73 sqM); Albumin 2.8 g/dL (3.5-5.0); Albumin/Globulin Ratio 1.1; Alkaline Phosphatase 126 U/L (38-126); Anion Gap 7 mmol/L; Blood Urea Nitrogen 39 mg/dL (9-20); Calcium 8.6 mg/dL (8.4-10.2); Carbon Dioxide 30 mmol/L (22-30); Chloride 98 mmol/L (98-107); Globulin 2.5 g/dL; Glucose 85 mg/dL (74-99); Non-African American GFR(CKD) 53 (>60 ml/min/1.73 sqM); Potassium 3.5 mmol/L (3.5-5.1); Sodium 135 mmol/L (137-145); Total Protein 5.3 g/dL (6.3-8.2)
[2024-11-14] MEDS: HYDROcodone/APAP 10-325MG 1 EACH TAB PO PRN (08:55)
--- NOTE | 2024-11-14 09:31 | P.CRDCN ---
History of Present Illness Consult date: 11/14/24 History of present illness: The patient is a pleasant 78-year-old gentleman who is known to our service from before with a past medical history significant for CAD and nonischemic cardiomyopathy status post AICD as well as permanent atrial fibrillation as well as valvular heart disease and multiple comorbid conditions. The patient presented to the hospital after he had an episode of syncope at home. He was in his usual state of health but recently he has been struggling with bilateral lower extremities edema and he was started on metolazone by his primary care nirmala burnham. Since then he stated that he has been feeling dizzy and lightheaded. He was in his usual state of health till yesterday when he was at home and subsequently he did have an episode of syncope with no prodromal symptoms. No other cardiovascular symptoms of any pain in the chest or shortness of breath beyond the baseline which he does have shortness of breath consistent with NYHA class II. No feeling of heart racing or fluttering. Further evaluation was performed including an EKG showing underlying atrial fibrillation with ventricular paced rhythm. NT proBNP came in around 1600. The rest of the workup came to be unremarkable besides mildly elevated creatinine. He seems to be overall euvolemic on examination. The physical examination is remarkable for regular rhythm with a systolic murmur at the right upper and left upper sternal border with distant heart sounds and diminished breathing sounds bilaterally and no edema was noted in the lower extremities Assessment History of syncope in somebody with CAD and cardiomyopathy CAD, nonobstructive Severe nonischemic cardiomyopathy status post AICD Valvular heart disease Permanent atrial fibrillation Multiple comorbid conditions Plan The patient is not in any overt heart failure Rule out orthostatic hypotension by performing orthostatic blood pressure Interrogate the AICD If the above workup came to be unremarkable he potentially can be discharged home in the next 12 to 24 hours Past Medical History Past Medical History: Atrial Fibrillation, Heart Failure, Hypertension Additional Past Medical History / Comment(s): aortic aneurysm History of Any Multi-Drug Resistant Organisms: None Reported Past Surgical History: AICD, Bariatric Surgery, Cholecystectomy, Pacemaker Past Anesthesia/Blood Transfusion Reactions: No Reported Reaction Type of Cardiac Device: Permanent Pacemaker, AICD Device Placement Date:: 2010 Past Psychological History: No Psychological Hx Reported Smoking Status: Former smoker Past Alcohol Use History: Occasional Past Drug Use History: None Reported - Past Family History Father Family Medical History: Congestive Heart Failure (CHF), COPD, Diabetes Mellitus Mother Family Medical History: Congestive Heart Failure (CHF), Diabetes Mellitus Medications and Allergies Home Medications Medication Instructions Recorded Confirmed Type Cyclobenzaprine [Flexeril] 10 mg PO TID PRN 08/10/22 11/13/24 History Escitalopram [Lexapro] 20 mg PO HS 08/10/22 11/13/24 History Famotidine [Pepcid] 20 mg PO BID 08/10/22 11/13/24 History Apixaban [Eliquis] 5 mg PO BID tab 08/18/22 11/13/24 Rx Cholecalciferol [Vitamin D3 (25 50 mcg PO DAILY 06/09/24 11/13/24 History Mcg = 1000 Iu)] Sacubitril/Valsartan [Entresto 24 1 tab PO BID 06/09/24 11/13/24 History mg-26 mg Tablet] Tamsulosin HCl [Flomax] 0.4 mg PO HS 06/09/24 11/13/24 History Furosemide [Lasix] 40 mg PO BID@0900,1600 30 Days #60 06/19/24 11/13/24 Rx tab Amiodarone [Cordarone] 200 mg PO DAILY 11/13/24 11/13/24 History HYDROcodone/APAP 10-325MG [Mclain 1 tab PO QID PRN 11/13/24 11/13/24 History 10-325] Metoprolol Succinate (ER) [Toprol 150 mg PO HS 11/13/24 11/13/24 History XL] metOLazone 2.5 mg PO DAILY 11/13/24 11/13/24 History metOLazone 2.5 mg PO DAILY@1600 PRN 11/13/24 11/13/24 History Allergies Allergy/AdvReac Type Severity Reaction Status Date / Time carvedilol [From Coreg] Allergy per PCP Verified 11/13/24 17:33 office Iodinated Contrast Media Allergy Itching Verified 11/13/24 17:33 Physical Exam Vitals: Vital Signs Temp Pulse Pulse Resp BP BP Pulse Ox 11/14/24 08:43 98 F 67 20 118/81 96 11/14/24 02:42 73 16 108/89 94 L 11/14/24 00:20 66 16 113/75 96 11/13/24 21:54 90/69 11/13/24 21:26 103/77 11/13/24 20:16 97.6 F 74 16 75/52 92 L 11/13/24 19:00 73 18 108/79 94 L 11/13/24 17:14 103/69 11/13/24 16:30 70 12 97 11/13/24 14:27 18 11/13/24 14:16 85 18 96 Intake and Output 11/13/24 11/14/24 11/14/24 22:59 06:59 14:59 Intake Total 112.5 Output Total 2500 1000 Balance -2387.5 -1000 Intake: Intake, IV Titration 112.5 Amount Sodium Chloride 0.9% 1, 112.5 000 ml @ 75 mls/hr IV . [id number] [facility] Rx#:[id number] Output: Urine 2500 1000 Uretheral (Carr) 1100 Other: Voiding Method Indwelling Catheter Indwelling Catheter Weight 124.738 kg Results 11/14/24 07:44 11/14/24 07:44 Cardiac Enzymes 11/13/24 11/13/24 11/13/24 Range/Units 14:54 15:07 18:19 AST 29 (17-59) U/L Troponin I <0.012 <0.012 (0.000-0.034) ng/mL 11/13/24 11/14/24 Range/Units 21:00 07:44 AST 28 (17-59) U/L Troponin I <0.012 (0.000-0.034) ng/mL Coagulation 11/13/24 Range/Units 14:54 PT 11.4 (10.0-12.5) sec APTT 22.0 (22.0-30.0) sec CBC 11/13/24 11/14/24 Range/Units 14:54 07:44 WBC 8.72 7.84 (4.50-10.00) 10*3/uL RBC 5.31 5.17 (4.40-5.60) 10*6/uL Hgb 14.6 14.1 (13.0-17.0) g/dL Hct 44.2 43.5 (39.6-50.0) % Plt Count 219 201 (140-440) 10*3/uL Comprehensive Metabolic Panel 11/13/24 11/14/24 Range/Units 14:54 07:44 Sodium 133 L 135 L (137-145) mmol/L Potassium 3.6 3.5 (3.5-5.1) mmol/L Chloride 99 98 (98-107) mmol/L Carbon Dioxide 29 30 (22-30) mmol/L BUN 44 H 39 H (9-20) mg/dL Creatinine 1.44 H 1.29 H (0.66-1.25) mg/dL Glucose 89 85 (74-99) mg/dL Calcium 8.7 8.6 (8.4-10.2) mg/dL AST 29 28 (17-59) U/L ALT 22 21 (4-49) U/L Alkaline Phosphatase 122 126 (38-126) U/L Total Protein 5.5 L 5.3 L (6.3-8.2) g/dL Albumin 3.0 L 2.8 L (3.5-5.0) g/dL Current Medications Generic Name Dose Route Start Last Admin Trade Name Freq PRN Reason Stop Dose Admin Hydrocodone Bitart/Acetaminophen 1 each 11/13/24 17:56 11/14/24 08:55 Hydrocodone/Apap 10-325mg 1 Each Tab PO 1 each QID PRN Administration Pain Amiodarone HCl 200 mg 11/14/24 09:00 11/14/24 08:46 Amiodarone 200 Mg Tab PO 200 mg DAILY SHELBY Administration Cholecalciferol 50 mcg 11/14/24 09:00 11/14/24 08:46 Cholecalciferol 25 Mcg (1000 Iu) Tablet PO 50 mcg DAILY SHELBY Administration Cyclobenzaprine HCl 10 mg 11/13/24 17:56 11/14/24 02:11 Cyclobenzaprine 10 Mg Tab PO 10 mg TID PRN Administration Muscle Spasm Escitalopram Oxalate 20 mg 11/13/24 21:00 11/13/24 21:27 Escitalopram 20 Mg Tab PO 20 mg HS SHELBY Administration Famotidine 20 mg 11/13/24 21:00 11/14/24 08:46 Famotidine 20 Mg Tab PO 20 mg BID SHELBY Administration Furosemide 40 mg 11/14/24 09:00 11/14/24 08:46 Furosemide 40 Mg Tab PO 40 mg BID@0900,1600 SHELBY Administration Sodium Chloride 1,000 mls @ 75 mls/hr 11/13/24 20:30 11/14/24 08:46 Saline 0.9% IV Not Given .[id number] SHELBY Metolazone 2.5 mg 11/14/24 09:00 11/14/24 08:49 Metolazone 2.5 Mg Tab PO 2.5 mg DAILY SHELBY Administration Metoprolol Succinate 150 mg 11/13/24 21:00 11/14/24 05:55 Metoprolol Succinate (Er) 50 Mg Tab.Er.24h PO Not Given HS SHELBY Naloxone HCl 0.2 mg 11/13/24 17:55 Naloxone 0.4 Mg/Ml 1 Ml Vial IV Q2M PRN Opioid Reversal Sacubitril/Valsartan 1 each 11/13/24 21:00 11/14/24 08:46 Sacubitril/Valsartan 24 Mg-26 Mg Tablet PO 1 each BID SHELBY Administration Tamsulosin HCl 0.4 mg 11/13/24 21:00 11/13/24 21:27 Tamsulosin 0.4 Mg Cap.Er.24h PO 0.4 mg HS SHELBY Administration Intake and Output 11/13/24 11/14/24 11/14/24 22:59 06:59 14:59 Intake Total 112.5 Output Total 2500 1000 Balance -2387.5 -1000 Intake: Intake, IV Titration 112.5 Amount Sodium Chloride 0.9% 1, 112.5 000 ml @ 75 mls/hr IV . [id number] [facility] Rx#:[id number] Output: Urine 2500 1000 Uretheral (Carr) 1100 Other: Voiding Method Indwelling Catheter Indwelling Catheter Weight 124.738 kg 11/14/24 07:44 11/14/24 07:44
--- NOTE | 2024-11-14 13:57 | CT ---
EXAMINATION TYPE: CT brain thu wo con DATE OF EXAM: 11/14/2024 COMPARISON: 11/13/2024 CLINICAL INDICATION: Male, 78 years old with history of fall on eliquis; PHH, code coag TECHNIQUE: CT scan of the head and cervical spine are performed without contrast. CT DLP: 1586.[address] CTDI: mGy Automated exposure control for dose reduction was used. Findings: Head CT: Ventricles, basal cisterns and sulci over convexities are moderately to markedly enlarged consistent with moderate to marked atrophy. There is no mass effect or shift of midline structures. There is moderate to marked decreased density in the periventricular white matter consistent with chr onic ischemic white matter demyelination. There is no acute intra or extra-axial hemorrhage. Posterior fossa including the brainstem, fourth ventricle and cerebellar pontine angles are grossly n ormal. The intraorbital contents appear normal and symmetric. Visualized paranasal sinuses are well aerated. CT cervical spine: Craniovertebral junction relationships and prevertebral soft tissues are normal. There is anterior cervical fusion C5, C6 and C7. There is mild disc space narrowing and spondylosis at the C3-4 and C4-5 levels indicating mild degene rative disease. 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 There is no bony encroachment of the cervical canal. There is multilevel bony neural foraminal encroachment as follows; moderate to severe at C3-4 bilater ally and moderate to severe C6-7 on the left. The paraspinal soft tissues unremarkable. IMPRESSION: 1. Head CT: No acute bleed or mass effect. Senescent changes as described above. 2. CT cervical spine: No acute trauma. Degenerative changes as described above. Cervical fusion from C5 through C7 [facility], , 11/14/2024 1:54 PM
--- NOTE | 2024-11-14 13:57 | P.HPIM ---
History of Present Illness H&P Date: 11/14/24 Idris Duenas, is a 78-year-old male who presented to [facility] emergency room after having a syncopal episode He was evaluated in the emergency room vital examination on presentation revealed a temperature of 97.6 pulse 85 respiration 18 blood pressure 103/69 pulse ox 96% on room air Laboratory data revealed a white blood count 8.72 hemoglobin 14.6 platelet count 219 sodium 133 BUN 44 creatinine 1.44 troponin level 0.012 BNP 1800 Testing in the emergency room revealed EKG revealed irregular rhythm with electronic ventricular pacemaker, chest x-ray revealed pulmonary vascular congestion, CT scan of the brain revealed no acute intracranial process, CT scan of the cervical spine revealed no evidence for cervical spine fracture. Patient was admitted to medical floor for further evaluation and treatment Past Medical History Past Medical History: Atrial Fibrillation, Heart Failure, Hypertension Additional Past Medical History / Comment(s): aortic aneurysm History of Any Multi-Drug Resistant Organisms: None Reported Past Surgical History: AICD, Bariatric Surgery, Cholecystectomy, Pacemaker Past Anesthesia/Blood Transfusion Reactions: No Reported Reaction Type of Cardiac Device: Permanent Pacemaker, AICD Device Placement Date:: 2010 Past Psychological History: No Psychological Hx Reported Smoking Status: Former smoker Past Alcohol Use History: Occasional Past Drug Use History: None Reported - Past Family History Father Family Medical History: Congestive Heart Failure (CHF), COPD, Diabetes Mellitus Mother Family Medical History: Congestive Heart Failure (CHF), Diabetes Mellitus Medications and Allergies Home Medications Medication Instructions Recorded Confirmed Type Cyclobenzaprine [Flexeril] 10 mg PO TID PRN 08/10/22 11/13/24 History Escitalopram [Lexapro] 20 mg PO HS 08/10/22 11/13/24 History Famotidine [Pepcid] 20 mg PO BID 08/10/22 11/13/24 History Apixaban [Eliquis] 5 mg PO BID tab 08/18/22 11/13/24 Rx Cholecalciferol [Vitamin D3 (25 50 mcg PO DAILY 06/09/24 11/13/24 History Mcg = 1000 Iu)] Sacubitril/Valsartan [Entresto 24 1 tab PO BID 06/09/24 11/13/24 History mg-26 mg Tablet] Tamsulosin HCl [Flomax] 0.4 mg PO HS 06/09/24 11/13/24 History Furosemide [Lasix] 40 mg PO BID@0900,1600 30 Days #60 06/19/24 11/13/24 Rx tab Amiodarone [Cordarone] 200 mg PO DAILY 11/13/24 11/13/24 History HYDROcodone/APAP 10-325MG [[place] 1 tab PO QID PRN 11/13/24 11/13/24 History 10-325] Metoprolol Succinate (ER) [Toprol 150 mg PO HS 11/13/24 11/13/24 History XL] metOLazone 2.5 mg PO DAILY 11/13/24 11/13/24 History metOLazone 2.5 mg PO DAILY@1600 PRN 11/13/24 11/13/24 History Allergies Allergy/AdvReac Type Severity Reaction Status Date / Time carvedilol [From Coreg] Allergy per PCP Verified 11/13/24 17:33 office Iodinated Contrast Media Allergy Itching Verified 11/13/24 17:33 Physical Exam Vitals: Vital Signs Temp Pulse Pulse Resp BP BP Pulse Ox 11/14/24 11:49 80 18 11/14/24 10:46 80 18 80/55 11/14/24 10:45 88 94/60 11/14/24 08:43 98 F 67 20 118/81 96 11/14/24 02:42 73 16 108/89 94 L 11/14/24 00:20 66 16 113/75 96 11/13/24 21:54 90/69 11/13/24 21:26 103/77 11/13/24 20:16 97.6 F 74 16 75/52 92 L 11/13/24 19:00 73 18 108/79 94 L 11/13/24 17:14 103/69 11/13/24 16:30 70 12 97 11/13/24 14:27 18 11/13/24 14:16 85 18 96 Intake and Output 11/13/24 11/14/24 11/14/24 22:59 06:59 14:59 Intake Total 112.5 Output Total 2500 1000 Balance -2387.5 -1000 Intake: Intake, IV Titration 112.5 Amount Sodium Chloride 0.9% 1, 112.5 000 ml @ 75 mls/hr IV . [id number] [facility] Rx#:[id number] Output: Urine 2500 1000 Uretheral (Carr) 1100 Other: Voiding Method Indwelling Catheter Indwelling Catheter Indwelling Catheter Weight 124.738 kg In general patient is alert and oriented x 3 in no distress HEENT head normocephalic and atraumatic Neck is supple no JVD no goiter no lymphadenopathy no carotid bruit Chest examination is clear to auscultation no crackles no wheezing Cardiac exam reveals regular heart sounds S1 and S2 no gallops no murmurs Abdomen is soft nontender no organomegaly with normal bowel sounds Extremity exam reveals no edema no cyanosis or clubbing Neurological examination reveals no gross focal deficits Results CBC & Chem 7: 11/14/24 07:44 11/14/24 07:44 Labs: Abnormal Lab Results - Last 24 Hours (Table) 11/13/24 11/14/24 11/14/24 Range/Units 14:54 07:44 07:44 RDW 21.2 H (11.5-14.5) % Monocytes # 1.05 H (0.20-1.00) 10*3/uL Sodium 133 L 135 L (137-145) mmol/L BUN 44 H 39 H (9-20) mg/dL Creatinine 1.44 H 1.29 H (0.66-1.25) mg/dL Total Protein 5.5 L 5.3 L (6.3-8.2) g/dL Albumin 3.0 L 2.8 L (3.5-5.0) g/dL Assessment and Plan Plan: Syncopal episode Underlying history of coronary artery disease Underlying history of ischemic cardiomyopathy Underlying history of AICD placement Underlying history of permanent atrial fibrillation Underlying history of valvular heart disease, with moderate to severe mitral regurgitation, mild to moderate tricuspid regurgitation Underlying history of hypertension Underlying history of benign prostatic hypertrophy Underlying history of depression At this time patient was seen and examined Home medications reviewed and reordered Cardiology consultation requested For DVT prophylaxis continue anticoagulation with Eliquis Will follow closely
[2024-11-14] MEDS ORDERED: metOLazone 2.5 MG TAB PO PRN (16:00)
[2024-11-14] MEDS: APIXABAN 5 MG TAB PO SCH (21:25)
[2024-11-15 07:15] LABS: Basophils # (A) 0.07 10*3/uL (0.00-0.10); Eosinophils # (A) 0.18 10*3/uL (0.04-0.35); Eosinophils % (A) 2.7 %; HCT 42.9 % (39.6-50.0); HGB 13.7 g/dL (13.0-17.0); Lymphocytes % (A) 26.8 %; MCH 27.2 pg (27.0-32.0); MCHC 31.9 g/dL (32.0-37.0); MCV 85.1 fL (80.0-97.0); Mean Platelet Volume 10.4 fL (9.5-12.2); Monocytes # (A) 0.87 10*3/uL (0.20-1.00); Monocytes % (A) 12.9 %; Neutrophils # (A) 3.78 10*3/uL (1.80-7.70); Neutrophils % (A) 56.3 %; Platelet Count 204 10*3/uL (140-440); RBC 5.04 10*6/uL (4.40-5.60); RDW 21.2 % (11.5-14.5); WBC 6.72 10*3/uL (4.50-10.00)
[2024-11-15 07:31] LABS: ALT 20 U/L (4-49); AST 25 U/L (17-59); African American GFR (CKD) 52 (>60 ml/min/1.73 sqM); Albumin 2.8 g/dL (3.5-5.0); Albumin/Globulin Ratio 1.1; Alkaline Phosphatase 131 U/L (38-126); Anion Gap 4 mmol/L; Blood Urea Nitrogen 36 mg/dL (9-20); Calcium 8.5 mg/dL (8.4-10.2); Carbon Dioxide 35 mmol/L (22-30); Chloride 96 mmol/L (98-107); Globulin 2.5 g/dL; Glucose 90 mg/dL (74-99); Magnesium 2.1 mg/dL (1.6-2.3); Non-African American GFR(CKD) 45 (>60 ml/min/1.73 sqM); Potassium 3.2 mmol/L (3.5-5.1); Sodium 135 mmol/L (137-145); Total Bilirubin 0.9 mg/dL (0.2-1.3); Total Protein 5.3 g/dL (6.3-8.2)
[2024-11-15] MEDS ORDERED: Potassium Replacement Protocol 1 EACH MISC MISCELLANE PRN ×2 (09:40→12:43)
--- NOTE | 2024-11-15 09:42 | P.PN ---
Subjective Progress Note Date: 11/15/24 Idris Duenas, is a 78-year-old male who presented to [facility] emergency room after having a syncopal episode He was evaluated in the emergency room vital examination on presentation r evealed a temperature of 97.6 pulse 85 respiration 18 blood pressure 103/69 pulse ox 96% on room air Laboratory data revealed a white blood count 8.72 hemoglobin 14.6 platelet count 219 sodium 133 BUN 44 creatinine 1.44 troponin level 0.012 BNP 1800 Testing in the emergency room revealed EKG revealed irregular rhythm with electronic ventricular pacemaker, chest x-ray revealed pulmonary vascular co ngestion, CT scan of the brain revealed no acute intracranial process, CT scan of the cervical spine revealed no evidence for cervical spine fracture. Patient was admitted to medical floor for further evaluation and treatment On 11/15/2024 patient is alert and oriented x 3. Potassium low at 3.2 will order replacement protocol. Patient having positive orthostatic hypotension awaiting further recommendations from cardiology services in regards to medication adjustment. AICD has been interrogated. Patient had episode of fall yesterday had cervical CT negative. Patient is complaining about right foot pain. Erythema noted to right foot. X-ray has been ordered. Patient denies chest pain or shortness of breath. Patient denies nausea vomiting or diarrhea. Patient denies any urinary burning or frequency Objective - Vital Signs Vital signs: Vital Signs Temp 97.7 F 11/15/24 07:00 Pulse 73 11/15/24 07:00 Resp 18 11/15/24 07:00 BP 110/77 11/15/24 07:00 Pulse Ox 97 11/15/24 07:00 FiO2 Intake & Output 11/14/24 11/15/24 11/15/24 18:59 06:59 18:59 Output Total 1300 Balance -1300 Output: Urine 1300 Other: Voiding Method Indwelling Catheter Indwelling Catheter # Bowel Movements 1 - Exam In general patient is alert and oriented x 3 in no distress HEENT head normocephalic and atraumatic Neck is supple no JVD no goiter no lymphadenopathy no carotid bruit Chest examination is clear to auscultation no crackles no wheezing Cardiac exam reveals regular heart sounds S1 and S2 no gallops no murmurs Abdomen is soft nontender no organomegaly with normal bowel sounds Extremity exam reveals no edema no cyanosis or clubbing Neurological examination reveals no gross focal deficits - Labs CBC & Chem 7: 11/15/24 06:31 11/15/24 06:31 Labs: Abnormal Lab Results - Last 24 Hours (Table) 11/15/24 11/15/24 Range/Units 06:31 06:31 MCHC 31.9 L (32.0-37.0) g/dL RDW 21.2 H (11.5-14.5) % Sodium 135 L (137-145) mmol/L Potassium 3.2 L (3.5-5.1) mmol/L Chloride 96 L (98-107) mmol/L Carbon Dioxide 35 H (22-30) mmol/L BUN 36 H (9-20) mg/dL Creatinine 1.46 H (0.66-1.25) mg/dL Alkaline Phosphatase 131 H (38-126) U/L Total Protein 5.3 L (6.3-8.2) g/dL Albumin 2.8 L (3.5-5.0) g/dL Assessment and Plan Plan: Syncopal episode Positive orthostatic hypotension Right foot pain Underlying history of coronary artery disease Underlying history of ischemic cardiomyopathy Underlying history of AICD placement Underlying history of permanent atrial fibrillation Underlying history of valvular heart disease, with moderate to severe mitral regurgitation, mild to moderate tricuspid regurgitation Underlying history of hypertension Underlying history of benign prostatic hypertrophy Underlying history of depression At this time patient was seen and examined Home medications reviewed and reordered Cardiology consultation requested For DVT prophylaxis continue anticoagulation with Eliquis Will follow closely
[2024-11-15] MEDS: POTASSIUM CHLORIDE ER 20 MEQ TAB.ER PO SCH (09:57)
--- NOTE | 2024-11-15 10:52 | P.PN ---
Subjective Progress Note Date: 11/15/24 The patient is a pleasant 78-year-old gentleman who is known to our service from before with a past medical history significant for CAD and nonischemic cardiomyopathy status post AICD as well as permanent atrial fibrillation as well as valvular heart disease and multiple comorbid conditions. The patient presented to the hospital after he had an episode of syncope at home. He was in his usual state of health but recently he has been struggling with bilateral lower extremities edema and he was started on metolazone by his primary care physician. Since then he stated that he has been feeling dizzy and lightheaded. He was in his usual state of health till yesterday when he was at home and subsequently he did have an episode of syncope with no prodromal symptoms. No other cardiovascular symptoms of any pain in the chest or shortness of breath beyond the baseline which he does have shortness of breath consistent with NYHA class II. No feeling of heart racing or fluttering. Further evaluation was performed including an EKG showing underlying atrial fibrillation with ventricular paced rhythm. NT proBNP came in around 1600. The rest of the workup came to be unremarkable besides mildly elevated creatinine. He seems to be overall euvolemic on examination. The physical examination is remarkable for regular rhythm with a systolic murmur at the right upper and left upper sternal border with distant heart sounds and diminished breathing sounds bilaterally and no edema was noted in the lower extremities November 15, 2024 The patient was seen and evaluated this morning. 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 Beside that no symptoms of chest pain or chest discomfort. The pressure has been also soft. Giving that and giving the low potassium I am going to decrease the dose of Lasix since he is euvolemic and possibly even dry and also add potassium maintenance dose. Repeat the potassium and magnesium tomorrow morning . He underwent an AICD interrogation we will follow-up on that. The physical examination is remarkable for regular rhythm with a systolic murmur at the right and left upper sternal border and apical area with clear breathing sounds bilaterally and no edema was noted in the lower extremities Assessment History of syncope in somebody with CAD and cardiomyopathy CAD, nonobstructive Severe nonischemic cardiomyopathy status post AICD Valvular heart disease Permanent atrial fibrillation Nonsustained ventricular tachycardia Plan Follow-up on the interrogation of the AICD Decrease the dose of Lasix Replace the potassium and start the patient on potassium supplement Continue monitoring the potassium and magnesium Monitor the patient for additional 24 hours Objective - Vital Signs Vital signs: Vital Signs Temp 97.7 F 11/15/24 07:00 Pulse 73 11/15/24 07:00 Resp 18 11/15/24 07:00 BP 110/77 11/15/24 07:00 Pulse Ox 97 11/15/24 07:00 FiO2 Intake & Output 11/14/24 11/15/24 11/15/24 18:59 06:59 18:59 Output Total 1300 Balance -1300 Output: Urine 1300 Other: Voiding Method Indwelling Catheter Indwelling Catheter # Bowel Movements 1 - Labs CBC & Chem 7: 11/15/24 06:31 11/15/24 06:31 Labs: Abnormal Lab Results - Last 24 Hours (Table) 11/15/24 11/15/24 Range/Units 06:31 06:31 MCHC 31.9 L (32.0-37.0) g/dL RDW 21.2 H (11.5-14.5) % Sodium 135 L (137-145) mmol/L Potassium 3.2 L (3.5-5.1) mmol/L Chloride 96 L (98-107) mmol/L Carbon Dioxide 35 H (22-30) mmol/L BUN 36 H (9-20) mg/dL Creatinine 1.46 H (0.66-1.25) mg/dL Alkaline Phosphatase 131 H (38-126) U/L Total Protein 5.3 L (6.3-8.2) g/dL Albumin 2.8 L (3.5-5.0) g/dL
--- NOTE | 2024-11-15 12:18 | XR ---
Right foot. HISTORY: Pain following fall. COMPARISON: 06/17/2024 TECHNIQUE: 3 obtained. FINDINGS: There is no fracture, dislocation or focal intraosseous abnormality. Soft tissues unremarkable. IMPRESSION: No significant abnormality seen. No interval change compared to previous. [facility], Workstation: [facility], 11/15/2024 12:15 PM
[2024-11-15] MEDS: FUROSEMIDE 20 MG TAB PO SCH (17:12)
[2024-11-16 08:21] LABS: ALT 19 U/L (10-49); AST 23 U/L (14-35); Albumin/Globulin Ratio 1.58 Ratio (1.60-3.17); Alkaline Phosphatase 142 U/L (41-126); BUN/Creat Ratio 23.08 Ratio (12.00-20.00); Calcium 8.6 mg/dL (8.7-10.3); Chloride 100 mmol/L (96-109); Globulin 1.9 g/dL (1.6-3.3); Glucose 93 mg/dL (70-110); Potassium 4.1 mmol/L (3.5-5.5); Sodium 139 mmol/L (135-145); Total Bilirubin 0.5 mg/dL (0.3-1.2); Total Protein 4.9 g/dL (6.2-8.2)
[2024-11-16] MEDS: SACUBITRIL/VALSARTAN 24 MG-26 MG TABLET PO SCH (08:39)
[2024-11-16] MEDS: POTASSIUM CHLORIDE ER 20 MEQ TAB.ER PO SCH (08:39)
[2024-11-16] MEDS ORDERED: FUROSEMIDE 20 MG TAB PO SCH ×2 (09:00→12:00)
[2024-11-16 09:39] LABS: Basophils # (A) 0.05 X 10*3/uL (0.00-0.10); Basophils % (A) 0.7 %; Eosinophils # (A) 0.27 X 10*3/uL (0.04-0.35); Eosinophils % (A) 3.9 %; HCT 43.8 % (39.6-50.0); HGB 13.6 g/dL (13.0-17.0); Lymphocytes # (A) 1.83 X 10*3/uL (0.90-5.00); Lymphocytes % (A) 26.2 %; MCH 26.9 pg (27.0-32.0); MCHC 31.1 g/dL (32.0-37.0); MCV 86.6 FL (80.0-97.0); Monocytes % (A) 11.5 %; NRBC Per 100 WBC 0 X 10*3/uL (0.00-0.01); Neutrophils % (A) 57.3 %; Platelet Count 220 X 10*3/uL (140-440); RBC 5.06 X 10*6/uL (4.40-5.60); RDW 21.2 % (11.5-14.5); WBC 6.98 X 10*3/uL (4.50-10.00)
--- NOTE | 2024-11-16 11:24 | P.PN ---
Subjective HISTORY OF PRESENT ILLNESS: The patient is a pleasant 78-year-old gentleman who is known to our service from before with a past medical history significant for CAD and nonischemic cardiomyopathy status post AICD as well as permanent atrial fibrillation as well as valvular heart disease and multiple comorbid conditions. The patient presented to the hospital after he had an episode of syncope at home. He was in his usual state of health but recently he has been struggling with bilateral lower extremities edema and he was started on metolazone by his primary care physician. Since then he stated that he has been feeling dizzy and lightheaded. He was in his usual state of health till yesterday when he was at home and subsequently he did have an episode of syncope with no prodromal symptoms. No other cardiovascular symptoms of any pain in the chest or shortness of breath beyond the baseline which he does have shortness of breath consistent with NYHA class II. No feeling of heart racing or fluttering. Further evaluation was performed including an EKG showing underlying atrial fibrillation with ventricular paced rhythm. NT proBNP came in around 1600. The rest of the workup came to be unremarkable besides mildly elevated creatinine. He seems to be overall euvolemic on examination. The physical examination is remarkable for regular rhythm with a systolic murmur at the right upper and left upper sternal border with distant heart sounds and diminished breathing sounds bilaterally and no edema was noted in the lower extremities November 15, 2024 The patient was seen and evaluated this morning. 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 Beside that no symptoms of chest pain or chest discomfort. The pressure has been also soft. Giving that and giving the low potassium I am going to decrease the dose of Lasix since he is euvolemic and possibly even dry and also add potassium maintenance dose. Repeat the potassium and magnesium tomorrow morning. He underwent an AICD interrogation we will follow-up on that. The physical examination is remarkable for regular rhythm with a systolic murmur at the right and left upper sternal border and apical area with clear breathing sounds bilaterally and no edema was noted in the lower extremities 11/16/2024 Patient examined this morning at bedside. Patient currently denies any chest pain or pressure. He denies any shortness of breath. No further episodes of syncope. Vital signs are stable. Patient gives additional history that his syncopal episodes started after he was started on metolazone on an outpatient basis. PHYSICAL EXAM: VITAL SIGNS: Reviewed. GENERAL: Well-developed in no acute distress. NECK: Supple. No JVD or thyromegaly LUNGS: Respirations even and unlabored. Lungs essentially clear to auscultation bilaterally. HEART: Regular rate and rhythm. S1 and S2 heard. EXTREMITIES: Normal range of motion. No clubbing or cyanosis. Peripheral pulses intact. No lower extremity edema ASSESSMENT: Syncope Nonobstructive CAD Severe nonischemic cardiomyopathy Status post ICD implantation Valvular heart disease Permanent atrial fibrillation History of nonsustained ventricular tachycardia PLAN: ICD interrogation reviewed with no events noted Discontinue metolazone as patient states his symptoms have only started after he was started on this medication If patient continues to have episodes of dizziness and syncope, consider using half dose Entresto Patient is stable for discharge home today from a cardiac standpoint Patient to follow-up postdischarge in the office Nurse practitioner note has been reviewed by physician. Signing provider agrees with the documented findings, assessment, and plan of care documented by [employer]AM [employer]IVER as a scribe. Objective - Vital Signs Vital signs: Vital Signs Temp 97.9 F 11/16/24 08:05 Pulse 70 11/16/24 09:17 Resp 17 11/16/24 08:05 BP 90/65 11/16/24 09:17 Pulse Ox 97 11/16/24 08:55 FiO2 Intake & Output 11/15/24 11/16/24 11/16/24 18:59 06:59 18:59 Intake Total 540 Output Total 550 1500 Balance -10 -1500 Intake: Oral 540 Output: Urine 550 1500 Other: Voiding Method Indwelling Catheter Indwelling Catheter Indwelling Catheter # Bowel Movements 1 - Labs CBC & Chem 7: 11/16/24 05:38 11/16/24 05:38 Labs: Abnormal Lab Results - Last 24 Hours (Table) 11/16/24 11/16/24 Range/Units 05:38 05:38 MCH 26.9 L (27.0-32.0) pg MCHC 31.1 L (32.0-37.0) g/dL RDW 21.2 H (11.5-14.5) % BUN 30.0 H (9.0-27.0) mg/dL Est GFR (CKD-EPI) 56 L (>=60) BUN/Creatinine Ratio 23.08 H (12.00-20.00) Ratio Calcium 8.6 L (8.7-10.3) mg/dL Alkaline Phosphatase 142 H (41-126) U/L Total Protein 4.9 L (6.2-8.2) g/dL Albumin 3.0 L (3.8-4.9) g/dL Albumin/Globulin Ratio 1.58 L (1.60-3.17) Ratio
--- NOTE | 2024-11-16 17:05 | P.PN ---
Subjective Progress Note Date: 11/16/24 Idris Duenas, is a 78-year-old male who presented to [facility] emergency room after having a syncopal episode He was evaluated in the emergency room vital examination on presentation r evealed a temperature of 97.6 pulse 85 respiration 18 blood pressure 103/69 pulse ox 96% on room air Laboratory data revealed a white blood count 8.72 hemoglobin 14.6 platelet count 219 sodium 133 BUN 44 creatinine 1.44 troponin level 0.012 BNP 1800 Testing in the emergency room revealed EKG revealed irregular rhythm with electronic ventricular pacemaker, chest x-ray revealed pulmonary vascular co ngestion, CT scan of the brain revealed no acute intracranial process, CT scan of the cervical spine revealed no evidence for cervical spine fracture. Patient was admitted to medical floor for further evaluation and treatment On 11/15/2024 patient is alert and oriented x 3. Potassium low at 3.2 will order replacement protocol. Patient having positive orthostatic hypotension awaiting further recommendations from cardiology services in regards to medication adjustment. AICD has been interrogated. Patient had episode of fall yesterday had cervical CT negative. Patient is complaining about right foot pain. Erythema noted to right foot. X-ray has been ordered. Patient denies chest pain or shortness of breath. Patient denies nausea vomiting or diarrhea. Patient denies any urinary burning or frequency On 11/16/2024 patient was seen and examined on the medical floor he is alert and oriented x 3 in no apparent distress he is still having episodes of dizziness and is having difficulty standing up and walking otherwise he denies any complaints there is no fever or chills no headache, no chest pain no shortness of breath no cough no nausea or vomiting no abdominal pain no diarrhea no urinary symptoms. Patient was evaluated by cardiology and was cleared for discharge. We attempted to discharge him today however he is still having severe dizziness, Carr catheter was removed and patient is not able to urinate yet, this time will cancel the discharge and recheck the patient in a.m. tomorrow. Objective - Vital Signs Vital signs: Vital Signs Temp 97.5 F L 11/16/24 13:57 Pulse 62 11/16/24 13:57 Resp 17 11/16/24 13:57 BP 94/71 11/16/24 13:57 Pulse Ox 94 L 11/16/24 13:57 FiO2 Intake & Output 11/15/24 11/16/24 11/16/24 18:59 06:59 18:59 Intake Total 540 Output Total 550 1500 600 Balance -10 -1500 -600 Intake: Oral 540 Output: Urine 550 1500 600 Other: Voiding Method Indwelling Catheter Indwelling Catheter Indwelling Catheter # Voids 1 # Bowel Movements 1 - Exam In general patient is alert and oriented x 3 in no distress HEENT head normocephalic and atraumatic Neck is supple no JVD no goiter no lymphadenopathy no carotid bruit Chest examination is clear to auscultation no crackles no wheezing Cardiac exam reveals regular heart sounds S1 and S2 no gallops no murmurs Abdomen is soft nontender no organomegaly with normal bowel sounds Extremity exam reveals no edema no cyanosis or clubbing Neurological examination reveals no gross focal deficits - Labs CBC & Chem 7: 11/16/24 05:38 11/16/24 05:38 Labs: Abnormal Lab Results - Last 24 Hours (Table) 11/16/24 11/16/24 Range/Units 05:38 05:38 MCH 26.9 L (27.0-32.0) pg MCHC 31.1 L (32.0-37.0) g/dL RDW 21.2 H (11.5-14.5) % BUN 30.0 H (9.0-27.0) mg/dL Est GFR (CKD-EPI) 56 L (>=60) BUN/Creatinine Ratio 23.08 H (12.00-20.00) Ratio Calcium 8.6 L (8.7-10.3) mg/dL Alkaline Phosphatase 142 H (41-126) U/L Total Protein 4.9 L (6.2-8.2) g/dL Albumin 3.0 L (3.8-4.9) g/dL Albumin/Globulin Ratio 1.58 L (1.60-3.17) Ratio Assessment and Plan Plan: Syncopal episode Positive orthostatic hypotension Right foot pain Underlying history of coronary artery disease Underlying history of ischemic cardiomyopathy Underlying history of AICD placement Underlying history of permanent atrial fibrillation Underlying history of valvular heart disease, with moderate to severe mitral regurgitation, mild to moderate tricuspid regurgitation Underlying history of hypertension Underlying history of benign prostatic hypertrophy Underlying history of depression At this time patient was seen and examined Home medications reviewed and reordered Cardiology consultation requested For DVT prophylaxis continue anticoagulation with Eliquis Will follow closely
[2024-11-16 21:28] VITALS: RESP 16
[2024-11-17 04:23] VITALS: TEMP 97.7
[2024-11-17 08:07] LABS: Basophils # (A) 0.05 X 10*3/uL (0.00-0.10); Basophils % (A) 0.8 %; Eosinophils # (A) 0.23 X 10*3/uL (0.04-0.35); Eosinophils % (A) 3.7 %; HCT 42.1 % (39.6-50.0); HGB 13.4 g/dL (13.0-17.0); Lymphocytes # (A) 1.66 X 10*3/uL (0.90-5.00); Lymphocytes % (A) 26.6 %; MCH 27.3 pg (27.0-32.0); MCHC 31.8 g/dL (32.0-37.0); MCV 85.9 FL (80.0-97.0); Mean Platelet Volume 11.2 FL (9.5-12.2); Monocytes # (A) 0.61 X 10*3/uL (0.20-1.00); Monocytes % (A) 9.8 %; NRBC Per 100 WBC 0 X 10*3/uL (0.00-0.01); Neutrophils # (A) 3.65 X 10*3/uL (1.80-7.70); Neutrophils % (A) 58.6 %; Platelet Count 221 X 10*3/uL (140-440); RDW 21.3 % (11.5-14.5); WBC 6.23 X 10*3/uL (4.50-10.00)
[2024-11-17 08:19] LABS: ALT 20 U/L (10-49); AST 27 U/L (14-35); Albumin 2.8 g/dL (3.8-4.9); Albumin/Globulin Ratio 1.27 Ratio (1.60-3.17); Alkaline Phosphatase 137 U/L (41-126); BUN/Creat Ratio 20.87 Ratio (12.00-20.00); Blood Urea Nitrogen 31.3 mg/dL (9.0-27.0); Calcium 8.4 mg/dL (8.7-10.3); Carbon Dioxide 28.6 mmol/L (21.6-31.8); Chloride 99 mmol/L (96-109); Globulin 2.2 g/dL (1.6-3.3); Glucose 98 mg/dL (70-110); Potassium 4.1 mmol/L (3.5-5.5); Sodium 138 mmol/L (135-145); Total Bilirubin 0.4 mg/dL (0.3-1.2)
--- NOTE | 2024-11-17 09:38 | P.PN ---
Subjective HISTORY OF PRESENT ILLNESS: The patient is a pleasant 78-year-old gentleman who is known to our service from before with a past medical history significant for CAD and nonischemic cardiomyopathy status post AICD as well as permanent atrial fibrillation as well as valvular heart disease and multiple comorbid conditions. The patient presented to the hospital after he had an episode of syncope at home. He was in his usual state of health but recently he has been struggling with bilateral lower extremities edema and he was started on metolazone by his primary care physician. Since then he stated that he has been feeling dizzy and lightheaded. He was in his usual state of health till yesterday when he was at home and subsequently he did have an episode of syncope with no prodromal symptoms. No other cardiovascular symptoms of any pain in the chest or shortness of breath beyond the baseline which he does have shortness of breath consistent with NYHA class II. No feeling of heart racing or fluttering. Further evaluation was performed including an EKG showing underlying atrial fibrillation with ventricular paced rhythm. NT proBNP came in around 1600. The rest of the workup came to be unremarkable besides mildly elevated creatinine. He seems to be overall euvolemic on examination. The physical examination is remarkable for regular rhythm with a systolic murmur at the right upper and left upper sternal border with distant heart sounds and diminished breathing sounds bilaterally and no edema was noted in the lower extremities November 15, 2024 The patient was seen and evaluated this morning. He did have an episode of nons ustained ventricular tachycardia energy engineer but his potassium was low. Beside that no symptoms of chest pain or chest discomfort. The pressure has been also soft. Giving that and giving the low potassium I am going to decrease the dose of Lasix since he is euvolemic and possibly even dry and also add potassium maintenance dose. Repeat the potassium and magnesium tomorrow morning. He underwent an AICD interrogation we will follow-up on that. The physical examination is remarkable for regular rhythm with a systolic murmur at the right and left upper sternal border and apical area with clear breathing sounds bilaterally and no edema was noted in the lower extremities 11/16/2024 Patient examined this morning at bedside. Patient currently denies any chest pain or pressure. He denies any shortness of breath. No further episodes of syncope. Vital signs are stable. Patient gives additional history that his syncopal episodes started after he was started on metolazone on an outpatient basis. 11/17/2024 Patient examined this morning at bedside. Patient currently denies any chest pain or pressure. Denies shortness of breath. He denies any further dizziness or lightheadedness since stopping metolazone PHYSICAL EXAM: VITAL SIGNS: Reviewed. GENERAL: Well-developed in no acute distress. NECK: Supple. No JVD or thyromegaly LUNGS: Respirations even and unlabored. Lungs essentially clear to auscultation bilaterally. HEART: Regular rate and rhythm. S1 and S2 heard. EXTREMITIES: Normal range of motion. No clubbing or cyanosis. Peripheral pulses intact. No lower extremity edema ASSESSMENT: Syncope Nonobstructive CAD Severe nonischemic cardiomyopathy Status post ICD implantation Valvular heart disease Permanent atrial fibrillation History of nonsustained ventricular tachycardia PLAN: ICD interrogation reviewed with no events noted Metolazone discontinued yesterday as patient states his symptoms only started after he was started on this medication If patient continues to have episodes of dizziness and syncope, consider using half dose Entresto Patient is stable for discharge home today from a cardiac standpoint Patient to follow-up postdischarge in the office We will sign off. Please reconsult if needed. Nurse practitioner note has been reviewed by physician. Signing provider agrees with the documented findings, assessment, and plan of care documented by CASINO ACCOUNTANT as a scribe. Objective - Vital Signs Vital signs: Vital Signs Temp 97.7 F 11/17/24 00:35 Pulse 69 11/17/24 00:35 Resp 16 11/17/24 00:35 BP 96/63 11/17/24 00:35 Pulse Ox 94 L 11/17/24 00:35 FiO2 Intake & Output 11/16/24 11/17/24 11/17/24 18:59 06:59 18:59 Output Total 600 Balance -600 Output: Urine 600 Other: Voiding Method Indwelling Catheter Urinal Toilet Urinal # Voids 1 1 # Bowel Movements 1 - Labs CBC & Chem 7: 11/17/24 05:14 11/17/24 05:14 Labs: Abnormal Lab Results - Last 24 Hours (Table) 11/16/24 11/17/24 11/17/24 Range/Units 05:38 05:14 05:14 MCH 26.9 L (27.0-32.0) pg MCHC 31.1 L 31.8 L (32.0-37.0) g/dL RDW 21.2 H 21.3 H (11.5-14.5) % BUN 31.3 H (9.0-27.0) mg/dL Est GFR (CKD-EPI) 47 L (>=60) BUN/Creatinine Ratio 20.87 H (12.00-20.00) Ratio Calcium 8.4 L (8.7-10.3) mg/dL Alkaline Phosphatase 137 H (41-126) U/L Total Protein 5.0 L (6.2-8.2) g/dL Albumin 2.8 L (3.8-4.9) g/dL Albumin/Globulin Ratio 1.27 L (1.60-3.17) Ratio
[2024-11-17 10:10] VITALS: BP 114/80; PULSE 67
--- NOTE | 2024-11-17 11:58 | P.DS ---
Providers Date of admission: 11/13/24 17:57 Expected date of discharge: 11/17/24 Attending physician: Angel Butts Primary care physician: Lashaun Castro [facility] Course: Discharge diagnosis Syncopal episode Positive orthostatic hypotension Right foot pain Underlying history of coronary artery disease Underlying history of ischemic cardiomyopathy Underlying history of AICD placement Underlying history of permanent atrial fibrillation Underlying history of valvular heart disease, with moderate to severe mitral regurgitation, mild to moderate tricuspid regurgitation Underlying history of hypertension Underlying history of benign prostatic hypertrophy Underlying history of depression hospital course Idris Duenas, is a 78-year-old male who presented to [facility] emergency room after having a syncopal episode He was evaluated in the emergency room vital examination on presentation revealed a temperature of 97.6 pulse 85 respiration 18 blood pressure 103/69 pulse ox 96% on room air Laboratory data revealed a white blood count 8.72 hemoglobin 14.6 platelet count 219 sodium 133 BUN 44 creatinine 1.44 troponin level 0.012 BNP 1800 Testing in the emergency room revealed EKG revealed irregular rhythm with electronic ventricular pacemaker, chest x-ray revealed pulmonary vascular congestion, CT scan of the brain revealed no acute intracranial process, CT scan of the cervical spine revealed no evidence for cervical spine fracture. Patient was admitted to medical floor for further evaluation and treatment On 11/15/2024 patient is alert and oriented x 3. Potassium low at 3.2 will order replacement protocol. Patient having positive orthostatic hypotension awaiting further recommendations from cardiology services in regards to medication adjustment. AICD has been interrogated. Patient had episode of fall yesterday had cervical CT negative. Patient is complaining about right foot pain. Erythema noted to right foot. X-ray has been ordered. Patient denies chest pain or shortness of breath. Patient denies nausea vomiting or diarrhea. Patient denies any urinary burning or frequency On 11/16/2024 patient was seen and examined on the medical floor he is alert and oriented x 3 in no apparent distress he is still having episodes of dizziness and is having difficulty standing up and walking otherwise he denies any complaints there is no fever or chills no headache, no chest pain no shortness of breath no cough no nausea or vomiting no abdominal pain no diarrhea no urinary symptoms. Patient was evaluated by cardiology and was cleared for discharge. We attempted to discharge him today however he is still having severe dizziness, Carr catheter was removed and patient is not able to urinate yet, this time will cancel the discharge and recheck the patient in a.m. tomorrow. On 11/17/2024 patient is alert and oriented x 3. Dizziness has improved and also able to void independently. Patient denies chest pain or shortness of breath patient denies any urinary burning or frequency. Patient will be DC'd home and follow-up with PCP for further management Patient Condition at Discharge: Stable Plan - Discharge Summary Discharge Rx Participant: No New Discharge Prescriptions: New Potassium Chloride ER [K-Dur 20] 20 meq PO DAILY 30 Days #30 tab Furosemide [Lasix] 20 mg PO BID@0900,1600 60 Days #30 tab Continue Famotidine [Pepcid] 20 mg PO BID Escitalopram [Lexapro] 20 mg PO HS Cholecalciferol [Vitamin D3 (25 Mcg = 1000 Iu)] 50 mcg PO DAILY Sacubitril/Valsartan [Entresto 24 mg-26 mg Tablet] 1 tab PO BID Amiodarone [Cordarone] 200 mg PO DAILY HYDROcodone/APAP 10-325MG [Dailey 10-325] 1 tab PO QID PRN PRN Reason: Pain Cyclobenzaprine [Flexeril] 10 mg PO TID PRN PRN Reason: Muscle Spasm Apixaban [Eliquis] 5 mg PO BID tab Tamsulosin HCl [Flomax] 0.4 mg PO HS Metoprolol Succinate (ER) [Toprol XL] 150 mg PO HS Discontinued Furosemide [Lasix] 40 mg PO BID@0900,1600 30 Days #60 tab metOLazone 2.5 mg PO DAILY@1600 PRN PRN Reason: Edema metOLazone 2.5 mg PO DAILY Discharge Medication List Cyclobenzaprine [Flexeril] 10 mg PO TID PRN 08/10/22 [History] Escitalopram [Lexapro] 20 mg PO HS 08/10/22 [History] Famotidine [Pepcid] 20 mg PO BID 08/10/22 [History] Apixaban [Eliquis] 5 mg PO BID tab 08/18/22 [Rx] Cholecalciferol [Vitamin D3 (25 Mcg = 1000 Iu)] 50 mcg PO DAILY 06/09/24 [History] Sacubitril/Valsartan [Entresto 24 mg-26 mg Tablet] 1 tab PO BID 06/09/24 [History] Tamsulosin HCl [Flomax] 0.4 mg PO HS 06/09/24 [History] Amiodarone [Cordarone] 200 mg PO DAILY 11/13/24 [History] HYDROcodone/APAP 10-325MG [Dailey 10-325] 1 tab PO QID PRN 11/13/24 [History] Metoprolol Succinate (ER) [Toprol XL] 150 mg PO HS 11/13/24 [History] Furosemide [Lasix] 20 mg PO BID@0900,1600 60 Days #30 tab 11/16/24 [Rx] Potassium Chloride ER [K-Dur 20] 20 meq PO DAILY 30 Days #30 tab 11/16/24 [Rx] Follow up Appointment(s)/Referral(s): Lashaun Castro MD [Primary Care Provider] - 1-2 days Terrance Jay MD [STAFF PHYSICIAN] - 1 Week Discharge Disposition: HOME SELF-CARE
== END 2024-11-17 14:26 | disposition home or self-care (01) | DRG 312 ==
LOC: EC 13:57 → 6NMEDSUR 17:56 → OBSVTOIN 17:57 → 6NMEDSUR 18:09
PROVIDERS: ADMIT Internal Medicine; ATTEND Internal Medicine
PROC: 4B02XTZ Measurement of Cardiac Defibrillator, External Approach (ICD-10-PCS; principal; 2024-11-14)
DX: I95.1 Orthostatic hypotension (principal); I47.20 Ventricular tachycardia, unspecified; I42.8 Other cardiomyopathies; I11.0 Hypertensive heart disease with heart failure; I08.1 Rheumatic disorders of both mitral and tricuspid valves; I48.21 Permanent atrial fibrillation; I50.9 Heart failure, unspecified; I25.5 Ischemic cardiomyopathy; I25.10 Atherosclerotic heart disease of native coronary artery without angina pectoris; E87.6 Hypokalemia; N40.0 Benign prostatic hyperplasia without lower urinary tract symptoms; Z79.01 Long term (current) use of anticoagulants; Z79.899 Other long term (current) drug therapy; Z82.49 Family history of ischemic heart disease and other diseases of the circulatory system; Z87.891 Personal history of nicotine dependence; Z91.81 History of falling; Z95.810 Presence of automatic (implantable) cardiac defibrillator; Z88.8 Allergy status to other drugs, medicaments and biological substances; Z91.041 Radiographic dye allergy status; Z87.19 Personal history of other diseases of the digestive system; Z90.49 Acquired absence of other specified parts of digestive tract; W19.XXXA Unspecified fall, initial encounter; Y92.099 Unspecified place in other non-institutional residence as the place of occurrence of the external cause
CPT/HCPCS: 36415; 51702; 70450; 71046; 72125; 80053; 83735; 83880; 84484; 84550; 85025; 85610; 85730; 93005; 94760; 96360; 96361; 99285

== ENCOUNTER 2024-12-14 14:20 | Day surgery (SDC) | payer MEDICARE ==
[~2024-12-14 14:20] MED LIST changes: -ALPRAZolam 0.25 MG TAB PO PRN; -ALPRAZolam 0.5 MG TAB PO PRN; -HEPARIN SODIUM,PORCINE 10,000 UNIT in SODIUM CHLORIDE 0.9% 1,000 ML IRRIGATION PRN; -HEPARIN SODIUM,PORCINE 2,500 UNIT in SODIUM CHLORIDE 0.9% 250 ML IRRIGATION PRN; +HYDROmorphone 0.5 MG/0.5 ML SYRINGE IVP PRN; +MIDAZOLAM 2 MG/2 ML VIAL IV PRN; -NITROGLYCERIN SL TABS 0.4 MG TAB SUBLINGUAL PRN; -SODIUM CHLORIDE 0.9% 1,000 ML in EMPTY BAG 1 BAG IV SCH
[2024-12-14] MEDS: SODIUM CHLORIDE 0.9% 1,000 ML IV SCH ×2 (15:20)
[2024-12-14] MEDS: LACTATED RINGERS 1,000 ML IV SCH (15:20)
[2024-12-14] MEDS: IV FLUID CONTINUATION 1,000 ML IV ONE (15:21)
[2024-12-14] MEDS ORDERED: PROPOFOL 10 MG/ML 20 ML VIAL IV ONE (16:54)
[2024-12-14] MEDS ORDERED: fentaNYL (PF) 50 MCG/ML 2 ML AMP ONE (16:54)
[2024-12-14] MEDS ORDERED: PHENYLEPHRINE-0.9% NACL SYG 1,000 MCG/10 ML SYRINGE ONE (16:54)
[2024-12-14] MEDS ORDERED: MIDAZOLAM 2 MG/2 ML VIAL ONE (16:54)
[2024-12-14] MEDS: ceFAZolin 1,000 MG in SODIUM CHLORIDE 0.9% IRRIGATIO 1,000 ML IRRIGATION ONE (17:25)
[2024-12-14] MEDS: LIDOCAINE 1% INJ 10MG/ML (30 ML VIAL-PF) SQ ONE (17:27)
[2024-12-14] MEDS: ROPIVACAINE 5 MG/ML 30 ML VIAL MISCELLANE ONE (17:28)
--- NOTE | 2024-12-14 18:07 | P.EPPROC ---
- EP Procedure Note Electrophysiology Procedure Note: Diagnosis Cardiomyopathy, chronic nonischemic in nature Congestive heart failure [place] [employer] class class II Wide QRS, right bundle branch block, QRS width 189 ms On guide line directed medical treatment for greater than 3 months BiV ICD at [facility], normal battery depletion New BiV ICD implant in [place] in 2010, history of nonischemic cardiomyopathy with syncope and history of persistent atrial fibrillation Procedure: Biventricular ICD implantation for management of risk of sudden cardiac and congestive heart failure Result: Successful biventricular ICD change Medtronic cobalt XT heart failure Quad device Atrial lead: Sensing 0.5 mV, pacing impedance 456 ohms RV ICD lead: 3 mV, pace impedance 342 ohms, pacing threshold 0.9 V at 0.4 ms, high voltage impedance 63 ohms Left ventricular lead: 5 V@0.4 ms, pacing impedance 342 ohms Procedure details: Patient was brought to the EP lab in a fasting state. Written informed consent was obtained prior to the procedure. Options, pros and cons, benefits and risks and complications discussed with patient in detail prior to the procedure (shared decision making) previously. Importance of continuing medical treatment emphasized previously. Alternatives discussed previously. The left pectoral area was prepped and draped as a protocol. IV antibiotics administered 1% lidocaine was used for local anesthesia. A 4 cm incision was made parallel to the deltopectoral groove, about 1.5 cm medial to it. The incision was carried down to the level of the pectoralis muscle and the subfascial pocket was made. Hemostasis was assured. Leads to the new generator. Pocket irrigated with antibiotic solution. Antibiotic pouch placed Leads connected to the biventricular ICD generator. Wound closed in 3 layers and dressed per protocol Biventricular ICD interrogated and programmed. Appropriate pacing parameters, antitachycardia therapies with antitachycardia pacing cardioversion defibrillations programmed. AV delay and biventricular pacing parameters programmed to achieve optimal physiologic pacing Patient tolerated the procedure well without any acute complications. See scanned device report in EMR for lead details
[2024-12-14] MEDS: ceFAZolin 2 GM in DEXTROSE 5% IN WATER 50 ML IVPB ONE (18:57)
[2024-12-14] MEDS: ceFAZolin 1,000 MG in SODIUM CHLORIDE 0.9% IRRIG BTL 250 ML IRRIGATION STA (18:58)
[2024-12-14] MEDS: VANCOMYCIN 2,000 MG in SODIUM CHLORIDE 0.9% 500 ML 500 ML IVPB STA (18:59)
[2024-12-14] MEDS: SACUBITRIL/VALSARTAN 24 MG-26 MG TABLET PO SCH (21:40)
[2024-12-14] MEDS: METOPROLOL SUCCINATE (ER) 50 MG TAB.ER.24H PO SCH (21:40)
[2024-12-14] MEDS: TAMSULOSIN 0.4 MG CAP.ER.24H PO SCH (21:40)
[2024-12-14] MEDS: APIXABAN 5 MG TAB PO SCH (21:40)
[2024-12-14] MEDS: FAMOTIDINE 20 MG TAB PO SCH (21:40)
[2024-12-14] MEDS: ESCITALOPRAM 20 MG TAB PO SCH (21:40)
[2024-12-15] MEDS: ceFAZolin 2 GM in DEXTROSE 5% IN WATER 50 ML IVPB SCH (00:11)
[2024-12-15] MEDS: ACETAMINOPHEN IV (For NPO) 1,000 MG in EMPTY BAG 1 BAG IVPB ONE (00:26)
[2024-12-15] MEDS: ACETAMINOPHEN TAB 325 MG TAB PO PRN (04:59)
[2024-12-15] MEDS: FUROSEMIDE 20 MG TAB PO SCH (07:55)
[2024-12-15] MEDS: POTASSIUM CHLORIDE ER 20 MEQ TAB.ER PO SCH (07:55)
[2024-12-15 08:01] VITALS: BP 99/63; PULSE 66; RESP 16; TEMP 97.7
== END 2024-12-15 13:25 | disposition home or self-care (01) ==
LOC: CATHEP 14:20 → 6NMEDSUR 18:04 → CATHEP 12-15 13:25
PROVIDERS: ATTEND Internal Medicine Clinical Cardiac Electrophysiology
DX: I25.10 Atherosclerotic heart disease of native coronary artery without angina pectoris (principal); I48.21 Permanent atrial fibrillation; I42.8 Other cardiomyopathies; I45.10 Unspecified right bundle-branch block; I38 Endocarditis, valve unspecified; I50.9 Heart failure, unspecified; I11.0 Hypertensive heart disease with heart failure; Z45.02 Encounter for adjustment and management of automatic implantable cardiac defibrillator; G47.33 Obstructive sleep apnea (adult) (pediatric); Z87.891 Personal history of nicotine dependence; H91.90 Unspecified hearing loss, unspecified ear; Z90.49 Acquired absence of other specified parts of digestive tract; Z89.231 Acquired absence of right shoulder; Z91.041 Radiographic dye allergy status; Z88.8 Allergy status to other drugs, medicaments and biological substances; Z79.899 Other long term (current) drug therapy
CPT/HCPCS: 33264; C1882; J2250; J3370; J0690 ×2; J2003; J3010; J2795; J2704; J2371

== ENCOUNTER 2025-01-08 14:28 | Emergency (ER) | payer MEDICARE ==
--- NOTE | 2025-01-08 15:21 | ED ---
Fall HPI - General Chief Complaint: Fall Stated Complaint: chest pain Time Seen by Provider: 01/08/25 15:17 Source: patient, EMS, RN notes reviewed Mode of arrival: EMS - History of Present Illness Initial Comments: 79-year-old male presenting status post chest injury status post trip and fall 4 hours ago. States he tripped and fell over a dog bed at home and onto vacuum and onto the floor. States he struck his chest on the vacuum and is having chest pain and shortness of breath. States he recently had a similar injury about a month ago where he fell and broke several ribs. He then had his defibrillator replaced about 2 to 3 weeks ago. Denies head injury or loss of consciousness. He is on Eliquis. No other injuries from the fall. Reports his pain is a 7 out of 10. - Related Data Home Medications Medication Instructions Recorded Confirmed Escitalopram [Lexapro] 20 mg PO HS 08/10/22 12/14/24 Famotidine [Pepcid] 20 mg PO BID 08/10/22 12/10/24 Cholecalciferol [Vitamin D3 (25 50 mcg PO DAILY 06/09/24 12/14/24 Mcg = 1000 Iu)] Sacubitril/Valsartan [Entresto 24 1 tab PO BID 06/09/24 12/10/24 mg-26 mg Tablet] Tamsulosin HCl [Flomax] 0.4 mg PO HS 06/09/24 12/14/24 Metoprolol Succinate (ER) [Toprol 150 mg PO HS 11/13/24 12/14/24 XL] Multi Vitamin 1 tab PO DAILY 12/10/24 12/14/24 Unk Iron 1 tab PO DAILY 12/10/24 12/14/24 Vitamin B12 1 tab PO DAILY 12/10/24 12/14/24 Previous Rx's Medication Instructions Recorded Apixaban [Eliquis] 5 mg PO BID tab 08/18/22 Furosemide [Lasix] 20 mg PO BID@0900,1600 60 Days #30 11/16/24 tab Amiodarone [Cordarone] 100 mg PO DAILY #90 tablet 12/14/24 Spironolactone [Aldactone] 25 mg PO DAILY #90 tablet 12/14/24 HYDROcodone/APAP 5-325MG [[place] 5] 1 each PO Q6HR PRN #12 tab 01/08/25 Allergies Allergy/AdvReac Type Severity Reaction Status Date / Time carvedilol [From Coreg] Allergy per PCP Verified 01/08/25 14:33 office Iodinated Contrast Media Allergy Itching Verified 01/08/25 14:33 Review of Systems ROS Statement: Those systems with pertinent positive or pertinent negative responses have been documented in the HPI. ROS Other: All systems not noted in ROS Statement are negative. Past Medical History Past Medical History: Atrial Fibrillation, Cancer, Heart Failure, Hearing Disorder / Deafness, Hypertension, Sleep Apnea/CPAP/BIPAP, Syncope Additional Past Medical History / Comment(s): aortic aneurysm, Seasonal allergies. see Dr Arnold H&P. sleep apnea does not wear cpap. uses hospital bed with HOB elevated. skin cancer Basal cell. [place]. recent admit for syncope and low BP, had falled at home broke some ribs and L2 fx. wearing brace. meds adjusted doing better. History of Any Multi-Drug Resistant Organisms: None Reported Past Surgical History: AICD, Bariatric Surgery, Cholecystectomy, Joint Replacement, Pacemaker Additional Past Surgical History / Comment(s): cervical wedge in neck. rt shoulder replaced. [place] knees replaced Past Anesthesia/Blood Transfusion Reactions: No Reported Reaction Additional Past Anesthesia/Blood Transfusion Reaction / Comment(s): has had problems urinating after anesthesia in the past. Type of Cardiac Device: Permanent Pacemaker, AICD Device Placement Date:: 2010 Past Psychological History: No Psychological Hx Reported Smoking Status: Former smoker Past Alcohol Use History: Occasional Past Drug Use History: None Reported - Past Family History Father Family Medical History: Congestive Heart Failure (CHF), COPD, Diabetes Mellitus Mother Family Medical History: Congestive Heart Failure (CHF), Diabetes Mellitus General Exam Limitations: no limitations General appearance: alert, in no apparent distress Head exam: Present: atraumatic, normocephalic, normal inspection Eye exam: Present: normal appearance, PERRL, EOMI. Absent: scleral icterus, conjunctival injection, periorbital swelling ENT exam: Present: normal exam, mucous membranes moist Neck exam: Present: normal inspection. Absent: tenderness, meningismus, lymphadenopathy Respiratory exam: Present: normal lung sounds bilaterally, chest wall tenderness (Contusion present over left chest with tenderness to palpation). Absent: respiratory distress, wheezes, rales, rhonchi, stridor Cardiovascular Exam: Present: normal rhythm, irregular rhythm, normal heart sounds. Absent: systolic murmur, diastolic murmur, rubs, gallop, clicks GI/Abdominal exam: Present: soft, normal bowel sounds. Absent: distended, tenderness, guarding, rebound, rigid Extremities exam: Present: normal inspection, full ROM, normal capillary refill. Absent: tenderness, pedal edema, joint swelling, calf tenderness Back exam: Present: normal inspection Neurological exam: Present: alert, oriented X3, CN II-XII intact Psychiatric exam: Present: normal affect, normal mood Skin exam: Present: warm, dry, intact, normal color. Absent: rash Course Vital Signs 01/08/25 01/08/25 14:31 15:23 Temperature 98.1 F Pulse Rate 69 64 Respiratory 20 19 Rate Blood Pressure 117/79 129/73 O2 Sat by Pulse 100 97 Oximetry Medical Decision Making - Medical Decision Making Was pt. sent in by a medical professional or institution (, PA, COMMUNICATION AND OUTREACH MANAGER, urgent care, hospital, or shelter...) When possible be specific @ -[No] Did you speak to anyone other than the patient for history (EMS, parent, family, police, friend...)? What history was obtained from this source @ -[No] Did you review nursing and triage notes (agree or disagree)? Why? @ -[I reviewed and agree with nursing and triage notes] Were old charts reviewed (outside hosp., previous admission, EMS record, old EKG, old radiological studies, urgent care reports/EKG's, shelter records)? Report findings @ -[No old charts were reviewed] Differential Diagnosis (chest pain, altered mental status, abdominal pain women, abdominal pain men, vaginal bleeding, weakness, fever, dyspnea, syncope, headache, dizziness, GI bleed, back pain, seizure, CVA, palpatations, mental health, musculoskeletal)? @ -Differential Musculoskeletal Muscular strain, contusion, ligament sprain, fracture, arthritis, septic arthritis, bursitis, cellulitis, muscle spasm, nerve compression, DVT, arterial occlusion, herpes zoster, electrolyte abnormality, tumor.... This is not meant to be in all inclusive list EKG interpreted by me (3pts min.). @ -[As above] X-rays interpreted by me (1pt min.). @ -[None done] CT interpreted by me (1pt min.). @ -CT chest reveals U/S interpreted by me (1pt. min.). @ -[None done] What testing was considered but not performed or refused? (CT, X-rays, U/S, labs)? Why? @ -[None] What meds were considered but not given or refused? Why? @ -[None] Did you discuss the management of the patient with other professionals (professionals i.e. DrAnu, PA, COMMUNICATION AND OUTREACH MANAGER, lab, RT, psych nurse, social organization professor, hospital pharmacy technician, teacher, forest fire management officer, foster care case manager)? Give summary @ -[No] Was smoking cessation discussed for >3mins.? @ -[No] Was critical care preformed (if so, how long)? @ -[No] Were there social determinants of health that impacted care today? How? (Homelessness, low income, unemployed, alcoholism, drug addiction, transportation, low edu. Level, literacy, decrease access to med. care, [facility], rehab)? @ -[No] Was there de-escalation of care discussed even if they declined (Discuss DNR or withdrawal of care, Hospice)? DNR status @ -[No] What co-morbidities impacted this encounter? (DM, HTN, Smoking, COPD, CAD, Cancer, CVA, ARF, Chemo, Hep., AIDS, mental health diagnosis, sleep apnea, morbid obesity)? @ -[None] Was patient admitted / discharged? Hospital course, mention meds given and route, prescriptions, significant lab abnormalities, going to OR and other pertinent info. @ -79-year-old male presenting for mechanical fall 4 hours ago with chest injury. States he fell forward onto his vacuum. There is a contusion present on the left side of chest with tenderness to palpation. Patient is experiencing chest pain and shortness of breath. Patient was provided with analgesics. Undiagnosed new problem with uncertain prognosis? @ -[No] Drug Therapy requiring intensive monitoring for toxicity (Heparin, Nitro, Insulin, Cardizem)? @ -[No] Were any procedures done? @ -[No] Diagnosis/symptom? @ -[default] Acute, or Chronic, or Acute on Chronic? @ -[default] Uncomplicated (without systemic symptoms) or Complicated (systemic symptoms)? @ -[default] Side effects of treatment? @ -[No] Exacerbation, Progression, or Severe Exacerbation? @ -[No] Poses a threat to life or bodily function? How? (Chest pain, [place], [place], pneumonia, PE, COPD, DKA, ARF, appy, cholecystitis, CVA, Diverticulitis, Homicidal, Suicidal, threat to staff... and all critical care pts) @ -[No] - EKG Data -: EKG Interpreted by Me EKG Comments: EKG reveals ventricularly paced rhythm. Ventricular rate 68 bpm, MO interval not calculated, QRS duration 197, QT/QTc 504/519 Disposition Clinical Impression: Chest wall contusion, Fall Disposition: HOME SELF-CARE Condition: Stable Instructions (If sedation given, give patient instructions): Fall Prevention for Older Adults (ED) Additional Instructions: Apply ice to the chest wall. Take [place] as needed for pain. Please return to the Emergency Department if symptoms worsen or any other concerns. Prescriptions: HYDROcodone/APAP 5-325MG [[place] 5] 1 each PO Q6HR PRN #12 tab PRN Reason: Pain Is patient prescribed a controlled substance at d/c from ED?: Yes When asked, does pt state using other controlled substances?: No If prescribed controlled substance>3 days was MAPS reviewed?: Prescribed <3 Days If opioid is for acute pain is fill amount 7 days or less?: Yes Referrals: Lashaun Castro MD [Primary Care Provider] - 1-2 days Time of Disposition: 17:01
[2025-01-08 15:26] VITALS: RESP 19
[2025-01-08] MEDS: HYDROmorphone 1 MG/ML 1 ML SYRINGE IVP STA (15:27)
--- NOTE | 2025-01-08 16:09 | CT ---
EXAMINATION TYPE: CT chest wo con DATE OF EXAM: 01/08/2025 3:51 PM COMPARISON: 08/10/2022 CLINICAL INDICATION: Male, 79 years old with history of chest pain s/p fall, CP s/p fall. TECHNIQUE: Axial images were obtained at 5 mm thick sections. Reconstructed images are reviewed on [email or web address] computer in the coronal plane. Contrast used: mL of , (none if empty) Oral contrast used: (none if empty) CT DLP: 993.6 mGycm, Automated exposure control for dose reduction was used. FINDINGS: Thyroid is obscured by beam hardening artifact from a right shoulder prosthesis and left-sided pacema ker. No pneumothorax is evident. No acute displaced rib fractures identified. No suspicious lung nodules or focal infiltrates are present. Small calcifications in the posterior ri ght sulcus. No suspicious nodules evident. Some mild compressive atelectasis may be within the depend ent lung bases. No enlarged mediastinal or hilar adenopathy is evident. The ascending aorta diameter at the level o f the main pulmonary artery is 4.4 cm. The main pulmonary artery diameter at the bifurcation is 4.4 cm. Mild coronary artery calcifications present. Cardiomegaly is present. Limited CT sections are obtained through the upper abdomen. Abdomen is essentially unremarkable. IMPRESSION: 1. Ascending thoracic aortic aneurysm 4.4 cm. [facility], , 01/08/2025 4:07 PM
[2025-01-08 17:07] VITALS: BP 127/80; PULSE 60; TEMP 97.6
== END 2025-01-08 17:15 | disposition home or self-care (01) ==
LOC: EC 14:28
DX: S20.219A Contusion of unspecified front wall of thorax, initial encounter (principal); Z79.01 Long term (current) use of anticoagulants; Z87.891 Personal history of nicotine dependence; Z91.041 Radiographic dye allergy status; Z88.8 Allergy status to other drugs, medicaments and biological substances; W01.0XXA Fall on same level from slipping, tripping and stumbling without subsequent striking against object, initial encounter
CPT/HCPCS: 93005; 71250; 99284; 96374; J1171

== ENCOUNTER 2025-01-14 10:46 | Observation (INO) | payer MEDICARE ==
--- NOTE | 2025-01-14 11:14 | ED ---
General Adult HPI - General Chief complaint: Chest Pain Stated complaint: Fall on thinner-Chest pain Time Seen by Provider: 01/14/25 10:54 Source: patient, family, RN notes reviewed Mode of arrival: wheelchair Limitations: no limitations - History of Present Illness Initial comments: This is an 79-year-old male with a history of A-fib on Eliquis and heart failure presenting to the emergency department with his for concerns of generalized weakness and chest pain. Last week, on Saturday, patient fell injuring his anterior chest. Patient was evaluated in the ER where he underwent CT imaging of the chest that was unremarkable and was discharged home. states that over the past week patient has been increasingly weak of bilateral upper and low er extremities. states that yesterday patient fell onto the ground where she had to contact the fire department to help with the patient off the ground. This morning patient is complaining of anterior chest wall pain exacerbated with upper arm movement and on palpation in addition to inspiration. - Related Data Home Medications Medication Instructions Recorded Confirmed Escitalopram [Lexapro] 20 mg PO HS 08/10/22 01/14/25 Famotidine [Pepcid] 20 mg PO BID 08/10/22 01/14/25 Cholecalciferol [Vitamin D3 (25 25 mcg PO DAILY 06/09/24 01/14/25 Mcg = 1000 Iu)] Tamsulosin HCl [Flomax] 0.4 mg PO HS 06/09/24 01/14/25 Metoprolol Succinate (ER) [Toprol 150 mg PO HS 11/13/24 01/14/25 XL] Cyanocobalamin (Vitamin B-12) 1,000 mcg PO DAILY 01/14/25 01/14/25 [Vitamin B-12] Ferrous Sulfate [Feosol] 325 mg PO DAILY 01/14/25 01/14/25 HYDROcodone/APAP 10-325MG [[place] 1 tab PO QID PRN 01/14/25 01/14/25 10-325] Multivitamins, Thera [Multivitamin 1 tab PO DAILY 01/14/25 01/14/25 (formulary)] Previous Rx's Medication Instructions Recorded Apixaban [Eliquis] 5 mg PO BID tab 08/18/22 Furosemide [Lasix] 20 mg PO BID@0900,1600 60 Days #30 11/16/24 tab Amiodarone [Cordarone] 100 mg PO DAILY #90 tablet 12/14/24 Spironolactone [Aldactone] 25 mg PO DAILY #90 tablet 12/14/24 Allergies Allergy/AdvReac Type Severity Reaction Status Date / Time carvedilol [From Coreg] Allergy per PCP Verified 01/14/25 11:32 office Iodinated Contrast Media Allergy Itching Verified 01/14/25 11:32 Review of Systems ROS Statement: Those systems with pertinent positive or pertinent negative responses have been documented in the HPI. ROS Other: All systems not noted in ROS Statement are negative. Past Medical History Past Medical History: Atrial Fibrillation, Cancer, Heart Failure, Hearing Disorder / Deafness, Hypertension, Sleep Apnea/CPAP/BIPAP, Syncope Additional Past Medical History / Comment(s): aortic aneurysm, Seasonal allergies. see Dr Catalina Slade. sleep apnea does not wear cpap. uses hospital bed with HOB elevated. skin cancer Basal cell. [place]. recent admit for syncope and low BP, had falled at home broke some ribs and L2 fx. wearing brace. meds adjusted doing better. History of Any Multi-Drug Resistant Organisms: None Reported Past Surgical History: AICD, Bariatric Surgery, Cholecystectomy, Joint Replacement, Pacemaker Additional Past Surgical History / Comment(s): cervical wedge in neck. rt shoulder replaced. [employer] knees replaced Past Anesthesia/Blood Transfusion Reactions: No Reported Reaction Additional Past Anesthesia/Blood Transfusion Reaction / Comment(s): has had problems urinating after anesthesia in the past. Type of Cardiac Device: Permanent Pacemaker, AICD Device Placement Date:: 2010 Past Psychological History: No Psychological Hx Reported Smoking Status: Former smoker Past Alcohol Use History: Occasional Past Drug Use History: None Reported - Past Family History Father Family Medical History: Congestive Heart Failure (CHF), COPD, Diabetes Mellitus Mother Family Medical History: Congestive Heart Failure (CHF), Diabetes Mellitus General Exam Limitations: no limitations Neck exam: Present: normal inspection. Absent: tenderness, meningismus, lymphadenopathy Respiratory exam: Present: normal lung sounds bilaterally, chest wall tenderness (anterior to palpation and inspiration). Absent: respiratory distress, wheezes, rales, rhonchi, stridor Cardiovascular Exam: Present: regular rate, irregular rhythm. Absent: normal rhythm GI/Abdominal exam: Present: soft, normal bowel sounds. Absent: distended, tenderness, guarding, rebound, rigid Extremities exam: Present: normal inspection, full ROM, normal capillary refill, other (bilateral UE movement causes pain to anterior chest). Absent: tenderness, pedal edema, joint swelling, calf tenderness Back exam: Present: normal inspection Skin exam: Present: warm, dry, intact, normal color. Absent: rash Course Vital Signs 01/14/25 01/14/25 01/14/25 10:50 11:57 13:17 Temperature 97.5 F L Pulse Rate 56 L 71 58 L Respiratory 20 20 20 Rate Blood Pressure 104/67 116/79 122/95 O2 Sat by Pulse 95 95 95 Oximetry Medical Decision Making - Medical Decision Making Was pt. sent in by a medical professional or institution (, PA, SALESPERSON FURNITURE, urgent care, hospital, or fdc...) When possible be specific @ -No Did you speak to anyone other than the patient for history (EMS, parent, family, police, friend...)? What history was obtained from this source @ - at bedside states that patient has had frequent falls over the last week and is concerned that he has not been taking care of himself while at home. Did you review nursing and triage notes (agree or disagree)? Why? @ -I reviewed and agree with nursing and triage notes Were old charts reviewed (outside hosp., previous admission, EMS record, old EKG, old radiological studies, urgent care reports/EKG's, fdc records)? Report findings @ -Reviewed CT imaging of the chest that was completed last week that was essentially unremarkable. Differential Diagnosis (chest pain, altered mental status, abdominal pain women, abdominal pain men, vaginal bleeding, weakness, fever, dyspnea, syncope, headache, dizziness, GI bleed, back pain, seizure, CVA, palpatations, mental health, musculoskeletal)? @ -Differential Chest Pain: Stable Angina, Unstable Angina, STEMI, NSTEMI Aortic Dissection, Pneumothorax, Musculoskeletal, Esophageal Spasm GERD, Cholecystitis, Pancreatitis, Zoster, this is not meant to be an all-inclusive list. EKG interpreted by me (3pts min.). @ -Completed at 1120 atrial fibrillation with a noted rate bundle branch block, ventricular rate of 55, QRS 193, QT 524, QTc 514. X-rays interpreted by me (1pt min.). @ -Chest x-ray reveals hypoventilatory changes however no germain consolidation or pleural effusion visualized CT interpreted by me (1pt min.). @ -None done U/S interpreted by me (1pt. min.). @ -None done What testing was considered but not performed or refused? (CT, X-rays, U/S, labs)? Why? @ -None What meds were considered but not given or refused? Why? @ -None Did you discuss the management of the patient with other professionals (professionals i.e. DrAnu, PA, SALESPERSON FURNITURE, lab, RT, psych nurse, social media marketing manager, horser up, teacher, interface control officer, insurance case manager)? Give summary @ -I spoke with Dr. Butts who was agreed to admit the patient. Was smoking cessation discussed for >3mins.? @ -No Was critical care preformed (if so, how long)? @ -No Were there social determinants of health that impacted care today? How? (Homelessness, low income, unemployed, alcoholism, drug addiction, transportation, low edu. Level, literacy, decrease access to med. care, penitentiary, rehab)? @ -No Was there de-escalation of care discussed even if they declined (Discuss DNR or withdrawal of care, Hospice)? DNR status @ -No What co-morbidities impacted this encounter? (DM, HTN, Smoking, COPD, CAD, Cancer, CVA, ARF, Chemo, Hep., AIDS, mental health diagnosis, sleep apnea, morbid obesity)? @ -None Was patient admitted / discharged? Hospital course, mention meds given and route, prescriptions, significant lab abnormalities, going to OR and other pertinent info. @ -Admitted. 79-year-old male presenting to the emergency department for complaints of weakness and chest pain. Patient did have anterior chest wall ecchymosis and is in moderate amount of pain with palpation and with movement of the upper extremities. EKG is in sinus rhythm. Patient is provided with dose of morphine and aspirin. Chest x-ray is unremarkable. Troponin is not detected. Patient is still in a moderate amount of pain after medications in his chest and with concern for frequent falls at home and generalized weakness will be admitted to observation with physical therapy, Occupational Therapy, and cardiology on consult. Will trend troponins. Case discussed with my attending Dr. Wright. Patient will be admitted to Dr. Butts. Undiagnosed new problem with uncertain prognosis? @ -No Drug Therapy requiring intensive monitoring for toxicity (Heparin, Nitro, Insulin, Cardizem)? @ -No Were any procedures done? @ -No Diagnosis/symptom? @ -Generalized weakness, frequent falls, chest pain, chest wall pain, anterior chest wall ecchymosis Acute, or Chronic, or Acute on Chronic? @ -Acute Uncomplicated (without systemic symptoms) or Complicated (systemic symptoms)? @ -Complicated Side effects of treatment? @ -No Exacerbation, Progression, or Severe Exacerbation? @ -No Poses a threat to life or bodily function? How? (Chest pain, [place], [place], pneumonia, PE, COPD, DKA, ARF, appy, cholecystitis, CVA, Diverticulitis, Homicidal, Suicidal, threat to staff... and all critical care pts) @ -No - Lab Data Result diagrams: 01/14/25 11:27 01/14/25 11:27 Lab Results 01/14/25 01/14/25 01/14/25 Range/Units 11:27 11:27 11:27 WBC 11.60 H (4.50-10.00) 10*3/uL RBC 4.70 (4.40-5.60) 10*6/uL Hgb 14.0 (13.0-17.0) g/dL Hct 42.3 (39.6-50.0) % MCV 90.0 (80.0-97.0) fL MCH 29.8 (27.0-32.0) pg MCHC 33.1 (32.0-37.0) g/dL Plt Count 183 (140-440) 10*3/uL MPV 10.6 (9.5-12.2) fL Immature Gran % (Auto) 0.4 % Neutrophils % 77.1 % Lymphocytes % 11.7 % Monocytes % 9.3 % Eosinophils % 1.1 % Basophils % 0.4 % Immature Gran # 0.05 H (0.00-0.04) 10*3/uL Neutrophils # 8.93 H (1.80-7.70) 10*3/uL Lymphocytes # 1.36 (0.90-5.00) 10*3/uL Monocytes # 1.08 H (0.20-1.00) 10*3/uL Eosinophils # 0.13 (0.04-0.35) 10*3/uL Basophils # 0.05 (0.00-0.10) 10*3/uL PT 11.0 (10.0-12.5) sec INR 1.0 (<1.2) APTT 24.3 (22.0-30.0) sec Sodium 134 L (137-145) mmol/L Potassium 4.7 (3.5-5.1) mmol/L Chloride 103 (98-107) mmol/L Carbon Dioxide 23 (22-30) mmol/L Anion Gap 8 mmol/L BUN 31 H (9-20) mg/dL Creatinine 0.99 (0.66-1.25) mg/dL Est GFR (CKD-EPI)AfAm 83 (>60 ml/min/1.73 sqM) Est GFR (CKD-EPI)NonAf 72 (>60 ml/min/1.73 sqM) Glucose 95 (74-99) mg/dL Calcium 9.0 (8.4-10.2) mg/dL Magnesium 2.0 (1.6-2.3) mg/dL Total Bilirubin 0.7 (0.2-1.3) mg/dL AST 26 (17-59) U/L ALT 24 (4-49) U/L Alkaline Phosphatase 99 (38-126) U/L Troponin I (0.000-0.034) ng/mL NT-Pro-B Natriuret Pep 2470 pg/mL Total Protein 5.6 L (6.3-8.2) g/dL Albumin 3.1 L (3.5-5.0) g/dL 01/14/25 Range/Units 11:27 WBC (4.50-10.00) 10*3/uL RBC (4.40-5.60) 10*6/uL Hgb (13.0-17.0) g/dL Hct (39.6-50.0) % MCV (80.0-97.0) fL MCH (27.0-32.0) pg MCHC (32.0-37.0) g/dL Plt Count (140-440) 10*3/uL MPV (9.5-12.2) fL Immature Gran % (Auto) % Neutrophils % % Lymphocytes % % Monocytes % % Eosinophils % % Basophils % % Immature Gran # (0.00-0.04) 10*3/uL Neutrophils # (1.80-7.70) 10*3/uL Lymphocytes # (0.90-5.00) 10*3/uL Monocytes # (0.20-1.00) 10*3/uL Eosinophils # (0.04-0.35) 10*3/uL Basophils # (0.00-0.10) 10*3/uL PT (10.0-12.5) sec INR (<1.2) APTT (22.0-30.0) sec Sodium (137-145) mmol/L Potassium (3.5-5.1) mmol/L Chloride (98-107) mmol/L Carbon Dioxide (22-30) mmol/L Anion Gap mmol/L BUN (9-20) mg/dL Creatinine (0.66-1.25) mg/dL Est GFR (CKD-EPI)AfAm (>60 ml/min/1.73 sqM) Est GFR (CKD-EPI)NonAf (>60 ml/min/1.73 sqM) Glucose (74-99) mg/dL Calcium (8.4-10.2) mg/dL Magnesium (1.6-2.3) mg/dL Total Bilirubin (0.2-1.3) mg/dL AST (17-59) U/L ALT (4-49) U/L Alkaline Phosphatase (38-126) U/L Troponin I <0.012 (0.000-0.034) ng/mL NT-Pro-B Natriuret Pep pg/mL Total Protein (6.3-8.2) g/dL Albumin (3.5-5.0) g/dL Disposition Clinical Impression: Chest pain Disposition: ADMITTED IP TO THIS HOSP Condition: Stable Referrals: Lashaun Castro MD [Primary Care Provider] - 1-2 days Decision to Admit Reason: Admit from EC Decision Date: 01/14/25 Decision Time: 12:46
[2025-01-14] MEDS: MORPHINE SULFATE 4 MG/ML SYRINGE IVP STA (11:30)
[2025-01-14 11:32] LABS: Basophils # (A) 0.05 10*3/uL (0.00-0.10); Basophils % (A) 0.4 %; Eosinophils # (A) 0.13 10*3/uL (0.04-0.35); Eosinophils % (A) 1.1 %; HCT 42.3 % (39.6-50.0); HGB 14.0 g/dL (13.0-17.0); Lymphocytes # (A) 1.36 10*3/uL (0.90-5.00); Lymphocytes % (A) 11.7 %; MCH 29.8 pg (27.0-32.0); MCHC 33.1 g/dL (32.0-37.0); MCV 90.0 fL (80.0-97.0); Monocytes # (A) 1.08 10*3/uL (0.20-1.00); Monocytes % (A) 9.3 %; Neutrophils # (A) 8.93 10*3/uL (1.80-7.70); Neutrophils % (A) 77.1 %; Platelet Count 183 10*3/uL (140-440); RBC 4.70 10*6/uL (4.40-5.60); RDW 14.7 % (11.5-14.5); WBC 11.60 10*3/uL (4.50-10.00)
[2025-01-14 11:41] LABS: INR 1.0 (<1.2); Partial Thromboplastin Time 24.3 sec (22.0-30.0); Prothrombin Time 11.0 sec (10.0-12.5)
[2025-01-14 11:50] LABS: ALT 24 U/L (4-49); AST 26 U/L (17-59); African American GFR (CKD) 83 (>60 ml/min/1.73 sqM); Albumin 3.1 g/dL (3.5-5.0); Alkaline Phosphatase 99 U/L (38-126); Anion Gap 8 mmol/L; Blood Urea Nitrogen 31 mg/dL (9-20); Calcium 9.0 mg/dL (8.4-10.2); Carbon Dioxide 23 mmol/L (22-30); Chloride 103 mmol/L (98-107); Glucose 95 mg/dL (74-99); Magnesium 2.0 mg/dL (1.6-2.3); Non-African American GFR(CKD) 72 (>60 ml/min/1.73 sqM); Potassium 4.7 mmol/L (3.5-5.1); Sodium 134 mmol/L (137-145); Total Protein 5.6 g/dL (6.3-8.2)
[2025-01-14 11:59] LABS: NT-Pro-B-Type Natriuretic Pept 2470 pg/mL
--- NOTE | 2025-01-14 12:15 | XR ---
EXAMINATION TYPE: XR chest 2V DATE OF EXAM: 01/14/2025 11:50 AM COMPARISON: 11/13/2024 CLINICAL INDICATION: Male, 79 years old with history of anterior chest wall pain, fall last week, bru ising, , TECHNIQUE: AP and lateral views FINDINGS: Left anterior chest wall ICD generator with right atrial, right ventricular, and coronary sinus leads . There are very low lung volumes. Elevated hemidiaphragms partially obscuring the heart margins. Hea rt suspected enlarged. Mild interstitial/vascular density. No germain consolidation or pleural effusion . Partially visualized reverse right shoulder arthroplasty. IMPRESSION: Prominent hypoventilatory changes limiting assessment. Correlate to exclude mild pulmonary vascular c ongestion. [facility], , 01/14/2025 12:13 PM
[2025-01-14] MEDS ORDERED: ACETAMINOPHEN TAB 325 MG TAB PO PRN (12:46)
[2025-01-14] MEDS ORDERED: NALOXONE 0.4 MG/ML 1 ML VIAL IV PRN (12:46)
[2025-01-14] MEDS: ASPIRIN 325 MG TAB PO STA (13:19)
[2025-01-14] MEDS: HYDROcodone/APAP 5-325MG 1 EACH TAB PO PRN (13:19)
[2025-01-14] MEDS: MORPHINE SULFATE 4 MG/ML SYRINGE IV PRN (15:29)
[2025-01-14] MEDS: FUROSEMIDE 20 MG TAB PO SCH (17:15)
[2025-01-14] MEDS: ESCITALOPRAM 20 MG TAB PO SCH (20:38)
[2025-01-14] MEDS: FAMOTIDINE 20 MG TAB PO SCH (20:38)
[2025-01-14] MEDS: METOPROLOL SUCCINATE (ER) 50 MG TAB.ER.24H PO SCH (20:38)
[2025-01-14] MEDS: TAMSULOSIN 0.4 MG CAP.ER.24H PO SCH (20:38)
[2025-01-14] MEDS: APIXABAN 5 MG TAB PO SCH (20:38)
[2025-01-15] MEDS: SPIRONOLACTONE 25 MG TAB PO SCH (07:28)
[2025-01-15] MEDS: CYANOCOBALAMIN 500 MCG TAB PO SCH (07:28)
[2025-01-15] MEDS: CHOLECALCIFEROL 25 MCG (1000 IU) TABLET PO SCH (07:29)
[2025-01-15] MEDS: MULTIVITAMINS, THERA 1 EACH TAB PO SCH (07:30)
[2025-01-15] MEDS: FERROUS SULFATE 325 MG TAB PO SCH (07:30)
[2025-01-15] MEDS: HYDROcodone/APAP 10-325MG 1 EACH TAB PO PRN (08:42)
--- NOTE | 2025-01-15 10:13 | P.CRDCN ---
History of Present Illness History of present illness: HISTORY OF PRESENT ILLNESS: This is a 79-year-old male with a past medical history significant for minimal CAD, cardiomyopathy, AICD implantation, permanent atrial fibrillation, valvular heart disease, hypertension, and hyperlipidemia. Patient follows in the office with Dr. Jay. We have been asked to see the patient in consultation for chest pain. Patient examined at the bedside. Patient states that he fell at home when he tripped over a dog bed. He states that he landed on a vacuum. He reports he has been having chest pain since that time. He states the pain is worse with de ep inspiration. The patient does have significant bruising across his chest. DIAGNOSTICS: - EKG reveals atrial fibrillation with controlled ventricular rate. - Chest xray prominent hypoventilatory changes limiting assessment. Correlate to exclude mild pulmonary vascular congestion - Laboratory data: Troponin negative x 3. proBNP 2470. - Current home cardiac medications include amiodarone 100 mg daily, Eliquis 5 mg twice a day, Lasix 20 mg twice a day, metoprolol succinate 150 mg at night, Al dactone 25 mg daily. - Most recent echocardiogram obtained in March 2024 revealing ejection frac tion 35%, mild AR, moderate MR, mild , dilated ascending aorta measuring 4.1 cm - Cardiac catheterization history: September 2022 revealing minimal CAD REVIEW OF SYSTEMS: At the time of my exam: CONSTITUTIONAL: Denies fever or chills. HEENT: Denies blurred vision, vision changes, or eye pain. Denies hemoptysis CARDIOVASCULAR: Denies chest pain. Denies orthopnea. Denies PND. Denies palpitations RESPIRATORY: Denies shortness of breath. GASTROINTESTINAL: Denies abdominal pain. Denies nausea or vomiting. HEMATOLOGIC: Denies bleeding disorders. GENITOURINARY: Denies any blood in urine. SKIN: Denies pruitis. Denies rash. PHYSICAL EXAM: VITAL SIGNS: Reviewed. GENERAL: Well-developed in no acute distress. HEENT: Head is normocephalic. Pupils are equal, round. Sclerae anicteric. Mucous membranes of the mouth are moist. Neck supple. No JVD or thyromegaly LUNGS: Respirations even and unlabored. Lungs essentially clear to auscultation bilaterally. HEART: Irregular rate and rhythm. S1 and S2 heard. ABDOMEN: Soft. Nondistended. Nontender. EXTREMITIES: Normal range of motion. No clubbing or cyanosis. Peripheral pulses intact. No lower extremity edema NEUROLOGIC: Awake and alert. Oriented x 3. ASSESSMENT: Chest wall pain, status post fall Minimal CAD per cath September 2022 Nonischemic cardiomyopathy History of AICD implantation Permanent atrial fibrillation Valvular heart disease Hypertension Hyperlipidemia PLAN: An acute coronary event has been ruled out Obtain 2D echo to assess cardiac structure and function Resume home cardiac medications Patient to be discharged home this afternoon pending echo results Nurse practitioner note has been reviewed by physician. Signing provider agrees with the documented findings, assessment, and plan of care documented by OPERATING ROOM MANAGER as a scribe. Past Medical History Past Medical History: Atrial Fibrillation, Cancer, Heart Failure, Hearing Disorder / Deafness, Hypertension, Sleep Apnea/CPAP/BIPAP, Syncope Additional Past Medical History / Comment(s): aortic aneurysm, Seasonal allergies. see Dr Catalina Jones&Arian. sleep apnea does not wear cpap. uses hospital bed with HOB elevated. skin cancer Basal cell. [place]. recent admit for syncope and low BP, had falled at home broke some ribs and L2 fx. wearing brace. meds adjusted doing better. History of Any Multi-Drug Resistant Organisms: None Reported Past Surgical History: AICD, Bariatric Surgery, Cholecystectomy, Joint Replacement, Pacemaker Additional Past Surgical History / Comment(s): cervical wedge in neck. rt shoulder replaced. valentina knees replaced Past Anesthesia/Blood Transfusion Reactions: No Reported Reaction Additional Past Anesthesia/Blood Transfusion Reaction / Comment(s): has had problems urinating after anesthesia in the past. Type of Cardiac Device: Permanent Pacemaker, AICD Device Placement Date:: 2010 Past Psychological History: No Psychological Hx Reported Smoking Status: Former smoker Past Alcohol Use History: Occasional Additional Past Alcohol Use History / Comment(s): quit smoking 1960 Past Drug Use History: None Reported - Past Family History Father Family Medical History: Congestive Heart Failure (CHF), COPD, Diabetes Mellitus Mother Family Medical History: Congestive Heart Failure (CHF), Diabetes Mellitus Medications and Allergies Home Medications Medication Instructions Recorded Confirmed Type Escitalopram [Lexapro] 20 mg PO HS 08/10/22 01/14/25 History Famotidine [Pepcid] 20 mg PO BID 08/10/22 01/14/25 History Apixaban [Eliquis] 5 mg PO BID tab 08/18/22 01/14/25 Rx Cholecalciferol [Vitamin D3 (25 25 mcg PO DAILY 06/09/24 01/14/25 History Mcg = 1000 Iu)] Tamsulosin HCl [Flomax] 0.4 mg PO HS 06/09/24 01/14/25 History Metoprolol Succinate (ER) [Toprol 150 mg PO HS 11/13/24 01/14/25 History XL] Furosemide [Lasix] 20 mg PO BID@0900,1600 60 Days #30 11/16/24 01/14/25 Rx tab Amiodarone [Cordarone] 100 mg PO DAILY #90 tablet 12/14/24 01/14/25 Rx Spironolactone [Aldactone] 25 mg PO DAILY #90 tablet 12/14/24 01/14/25 Rx Cyanocobalamin (Vitamin B-12) 1,000 mcg PO DAILY 01/14/25 01/14/25 History [Vitamin B-12] Ferrous Sulfate [Feosol] 325 mg PO DAILY 01/14/25 01/14/25 History HYDROcodone/APAP 10-325MG [[place] 1 tab PO QID PRN 01/14/25 01/14/25 History 10-325] Multivitamins, Thera [Multivitamin 1 tab PO DAILY 01/14/25 01/14/25 History (formulary)] Allergies Allergy/AdvReac Type Severity Reaction Status Date / Time carvedilol [From Coreg] Allergy per PCP Verified 01/14/25 11:32 office Iodinated Contrast Media Allergy Itching Verified 01/14/25 11:32 Physical Exam Vitals: Vital Signs Temp Pulse Pulse Resp BP BP Pulse Ox 01/15/25 07:00 97.8 F 67 16 124/88 96 01/15/25 00:30 97.6 F 57 L 18 96/62 95 01/14/25 18:40 97.8 F 62 20 104/67 97 01/14/25 17:56 68 18 126/83 97 01/14/25 16:57 98 F 64 18 122/95 98 01/14/25 15:22 59 L 18 122/95 94 L 01/14/25 13:17 58 L 20 122/95 95 01/14/25 11:57 71 20 116/79 95 01/14/25 10:50 97.5 F L 56 L 20 104/67 95 Intake and Output 01/14/25 01/15/25 01/15/25 22:59 06:59 14:59 Other: # Voids 1 2 1 # Bowel Movements 1 Weight 129.274 kg Results 01/14/25 11:27 01/14/25 11:27 Cardiac Enzymes 01/14/25 01/14/25 01/14/25 Range/Units 11:27 11:27 14:17 AST 26 (17-59) U/L Troponin I <0.012 <0.012 (0.000-0.034) ng/mL 01/14/25 Range/Units 17:01 AST (17-59) U/L Troponin I <0.012 (0.000-0.034) ng/mL Coagulation 01/14/25 Range/Units 11:27 PT 11.0 (10.0-12.5) sec APTT 24.3 (22.0-30.0) sec CBC 01/14/25 Range/Units 11:27 WBC 11.60 H (4.50-10.00) 10*3/uL RBC 4.70 (4.40-5.60) 10*6/uL Hgb 14.0 (13.0-17.0) g/dL Hct 42.3 (39.6-50.0) % Plt Count 183 (140-440) 10*3/uL Comprehensive Metabolic Panel 01/14/25 Range/Units 11:27 Sodium 134 L (137-145) mmol/L Potassium 4.7 (3.5-5.1) mmol/L Chloride 103 (98-107) mmol/L Carbon Dioxide 23 (22-30) mmol/L BUN 31 H (9-20) mg/dL Creatinine 0.99 (0.66-1.25) mg/dL Glucose 95 (74-99) mg/dL Calcium 9.0 (8.4-10.2) mg/dL AST 26 (17-59) U/L ALT 24 (4-49) U/L Alkaline Phosphatase 99 (38-126) U/L Total Protein 5.6 L (6.3-8.2) g/dL Albumin 3.1 L (3.5-5.0) g/dL Current Medications Generic Name Dose Route Start Last Admin Trade Name Freq PRN Reason Stop Dose Admin Acetaminophen 650 mg 01/14/25 12:46 Acetaminophen Tab 325 Mg Tab PO Q6HR PRN Mild Pain or Fever > 100.5 Hydrocodone Bitart/Acetaminophen 1 each 01/14/25 13:22 01/15/25 08:42 Hydrocodone/Apap 10-325mg 1 Each Tab PO 1 each QID PRN Administration Pain 4-6 Amiodarone HCl 100 mg 01/15/25 09:00 Amiodarone 100 Mg Tab PO DAILY SHELBY Apixaban 5 mg 01/14/25 21:00 01/15/25 07:29 Apixaban 5 Mg Tab PO 5 mg BID SHELBY Administration Protocol Cholecalciferol 25 mcg 01/15/25 09:00 01/15/25 07:29 Cholecalciferol 25 Mcg (1000 Iu) Tablet PO 25 mcg DAILY SHELBY Administration Cyanocobalamin 1,000 mcg 01/15/25 09:00 01/15/25 07:28 Cyanocobalamin 500 Mcg Tab PO 1,000 mcg DAILY SHELBY Administration Escitalopram Oxalate 20 mg 01/14/25 21:00 01/15/25 07:30 Escitalopram 20 Mg Tab PO 20 mg HS SHELBY Administration Famotidine 20 mg 01/14/25 21:00 01/15/25 07:30 Famotidine 20 Mg Tab PO 20 mg BID SHELBY Administration Ferrous Sulfate 325 mg 01/15/25 09:00 01/15/25 07:30 Ferrous Sulfate 325 Mg Tab PO 325 mg DAILY SHELBY Administration Furosemide 20 mg 01/14/25 16:00 01/15/25 07:30 Furosemide 20 Mg Tab PO 20 mg BID@0900,1600 SHELBY Administration Metoprolol Succinate 150 mg 01/14/25 21:00 01/14/25 20:38 Metoprolol Succinate (Er) 50 Mg Tab.Er.24h PO 150 mg HS SHELBY Administration Morphine Sulfate 4 mg 01/14/25 12:46 01/15/25 07:26 Morphine Sulfate 4 Mg/Ml Syringe IV 4 mg Q4HR PRN Administration Severe Pain (Scale 7 to 10) Multivitamins 1 each 01/15/25 09:00 01/15/25 07:30 Multivitamins, Thera 1 Each Tab PO 1 each DAILY SHELBY Administration Naloxone HCl 0.2 mg 01/14/25 12:46 Naloxone 0.4 Mg/Ml 1 Ml Vial IV Q2M PRN Opioid Reversal Spironolactone 25 mg 01/15/25 09:00 01/15/25 07:28 Spironolactone 25 Mg Tab PO 25 mg DAILY SHELBY Administration Tamsulosin HCl 0.4 mg 01/14/25 21:00 01/14/25 20:38 Tamsulosin 0.4 Mg Cap.Er.24h PO 0.4 mg HS SHELBY Administration Intake and Output 01/14/25 01/15/25 01/15/25 22:59 06:59 14:59 Other: # Voids 1 2 1 # Bowel Movements 1 Weight 129.274 kg 01/14/25 11:27 01/14/25 11:27
[2025-01-15] MEDS: AMIODARONE 100 MG TAB PO SCH (10:16)
[2025-01-15 10:20] LABS: Basophils # (A) 0.04 X 10*3/uL (0.00-0.10); Basophils % (A) 0.5 %; Eosinophils # (A) 0.18 X 10*3/uL (0.04-0.35); Eosinophils % (A) 2.1 %; HCT 43.6 % (39.6-50.0); HGB 13.5 g/dL (13.0-17.0); Immature Grans, Automated 0.50 %; Lymphocytes # (A) 0.96 X 10*3/uL (0.90-5.00); Lymphocytes % (A) 11.0 %; MCH 28.5 pg (27.0-32.0); MCHC 31.0 g/dL (32.0-37.0); MCV 92.2 FL (80.0-97.0); Monocytes # (A) 0.79 X 10*3/uL (0.20-1.00); Monocytes % (A) 9.0 %; NRBC Per 100 WBC 0 X 10*3/uL (0.00-0.01); Neutrophils # (A) 6.75 X 10*3/uL (1.80-7.70); Neutrophils % (A) 76.9 %; Platelet Count 184 X 10*3/uL (140-440); RBC 4.73 X 10*6/uL (4.40-5.60); RDW 15.1 % (11.5-14.5); WBC 8.76 X 10*3/uL (4.50-10.00)
--- NOTE | 2025-01-15 10:28 | CA ---
Transthoracic Echo Report Name: Idris Duenas Age: 79 Gender: M : 1945 Exam Date: 01/15/2025 08:13 Exam Location: [facility] Ht (in): 77 Wt (lb): 285 Ordering Physician: Josefina Marie Attending/Referring Phys: [id number], Cynthia Career Education Teacher Cameron Jordan, NIKOLAS Procedure CPT: Indications: cardiac contusion Cardiac Hx: Technical Quality: Poor Contrast 1: Total Dose (mL): Contrast 2: Total Dose (mL): MEASUREMENTS (Male / Female) Normal Values 2D ECHO LV Diastolic Diameter PLAX 4.3 cm 4.2 - 5.9 / 3.9 - 5.3 cm LV Systolic Diameter PLAX 3.4 cm IVS Diastolic Thickness 1.4 cm 0.6 - 1.0 / 0.6 - 0.9 cm LVPW Diastolic Thickness 1.5 cm 0.6 - 1.0 / 0.6 - 0.9 cm LV Relative Wall Thickness 0.7 RV Internal Dim ED PLAX 3.6 cm LVOT Diameter 2.5 cm LA Systolic Diameter LX 6.0 cm 3.0 - 4.0 / 2.7 - 3.8 cm LV Diastolic Volume MOD BP 92.3 cm??? 67 - 155 / 56 - 104 cm??? LV Systolic Volume MOD BP 71.9 cm??? 22 - 58 / 19 - 49 cm??? LV Ejection Fraction MOD BP 22.1 % >= 55 % LV Cardiac Index MOD BP 531.1 cm???/min???m??? LV Diastolic Volume MOD 4C 79.4 cm??? LV Systolic Volume MOD 4C 54.4 cm??? LV Ejection Fraction MOD 4C 31.5 % LV Cardiac Index MOD 4C 651.1 cm???/min???m??? LV Diastolic Length 4C 7.5 cm LV Systolic Length 4C 6.5 cm LV Diastolic Volume MOD 2C 122.1 cm??? LV Systolic Volume MOD 2C 88.5 cm??? LV Ejection Fraction MOD 2C 27.5 % LV Cardiac Index MOD 2C 876.1 cm???/min???m??? LV Diastolic Length 2C 8.2 cm LV Systolic Length 2C 7.6 cm LA Volume 126.1 cm??? 18 - 58 / 22 - 52 cm??? LA Volume Index 47.0 cm???/m??? 16 - 28 cm???/m??? M-MODE Aortic Root Diameter MM 4.0 cm LA Systolic Diameter MM 6.1 cm LA Ao Ratio MM 1.5 AV Cusp Separation MM 1.9 cm DOPPLER AV Peak Velocity 228.1 cm/s AV Peak Gradient 20.8 mmHg AV Mean Velocity 159.9 cm/s AV Mean Gradient 11.5 mmHg AV Velocity Time Integral 44.9 cm LVOT Peak Velocity 57.0 cm/s LVOT Peak Gradient 1.3 mmHg LVOT Velocity Time Integral 10.3 cm LVOT Stroke Volume 51.9 cm??? LVOT Stroke Volume Index 20.0 ml/m??? LVOT Cardiac Index 1354.2 cm???/min???m??? AV Area Cont Eq vti 1.2 cm??? AV Area Cont Eq pk 1.3 cm??? TR Peak Velocity 242.8 cm/s TR Peak Gradient 23.6 mmHg FINDINGS Left Ventricle Left ventricular ejection fraction is estimated at 30-35 %. No obvious regional wall motion abnormalities. Moderately increased septal wall thickness. Moderately increased left ventricular systolic volume. Moderatly decreased left ventricular ejection fraction. Right Ventricle Mild right ventricular dilatation. Normal right ventricular global systolic function. Right Atrium Moderate right atrial dilatation. No right atrial thrombus or mass seen. Catheter/pacemaker wire in the right atrial cavity. Left Atrium Severe left atrial dilatation. No left atrial thrombus or mass present. Mitral Valve No mitral stenosis. Mild thickening/calcification of the anterior mitral valve leaflet. Mild mitral annular calcification. [id number] mitral regurgitation. Aortic Valve Trileaflet aortic valve. No aortic regurgitation. Mild aortic stenosis with a peak gradient of 21 mmHg and a mean gradient of 12 mmHg. Tricuspid Valve No tricuspid stenosis. Mild tricuspid regurgitation. Pulmonic Valve Pulmonic valve not well visualized. Pericardium Normal pericardium. No pericardial or pleural effusion. Aorta Normal size aortic root and proximal ascending aorta. CONCLUSIONS Impaired LV function with EF between 30 to 35% No pericardial effusion Mitral annular calcification with mild to moderate MR Aortic sclerosis with mild stenosis and mean gradient of 12 mmHg Previewed by: Dr. Terrance Jay MD (Electronically Signed) Final Date: 15 January 2025 10:27
[2025-01-15 10:34] LABS: ALT 28 U/L (10-49); AST 25 U/L (14-35); Albumin 3.2 g/dL (3.8-4.9); Albumin/Globulin Ratio 1.39 Ratio (1.60-3.17); Alkaline Phosphatase 112 U/L (41-126); Anion Gap 9.70 mmol/L (4.00-12.00); BUN/Creat Ratio 24.70 Ratio (12.00-20.00); Blood Urea Nitrogen 24.7 mg/dL (9.0-27.0); Calcium 8.8 mg/dL (8.7-10.3); Carbon Dioxide 27.3 mmol/L (21.6-31.8); Chloride 100 mmol/L (96-109); Globulin 2.3 g/dL (1.6-3.3); Glucose 107 mg/dL (70-110); Potassium 5.2 mmol/L (3.5-5.5); Sodium 137 mmol/L (135-145); Total Protein 5.5 g/dL (6.2-8.2)
--- NOTE | 2025-01-15 14:32 | P.HPIM ---
History of Present Illness H&P Date: 01/14/25 Idris Duenas, is an 79-year-old male who presented to [facility] emergency room with a chief complaint of chest pain, patient was recently seen in emergency room after sustaining a fall with chest trauma, he was evaluated in the emergency room on 01/08/2025, CT scan of the chest was done and patient was discharged home. Patient continued to feel very weak, he had another fall where he slid off his chair, he was on the floor for 4 hours until the fire department were able to come and pick him, he is complaining of generalized weakness and low back pain and bilateral hip pain. He was evaluated in the emergency room vital examination on presentation revealed a temperature of 97.5 pulse 56 respiration 20 blood pressure 104/67 pulse ox 95% on room air Laboratory data revealed a white blood count of 11.6 hemoglobin 14.0 platelet count 183 BUN 31 creatinine 0.99 Testing in the emergency room revealed EKG revealed atrial fibrillation with slow ventricular response, chest x-ray revealed no germain consolidation or pleural effusion mild cardiomegaly. Patient was admitted to medical floor for further evaluation and treatment Past Medical History Past Medical History: Atrial Fibrillation, Cancer, Heart Failure, Hearing Disorder / Deafness, Hypertension, Sleep Apnea/CPAP/BIPAP, Syncope Additional Past Medical History / Comment(s): aortic aneurysm, Seasonal allergies. see Dr Arnold H&P. sleep apnea does not wear cpap. uses hospital bed with HOB elevated. skin cancer Basal cell. [place]. recent admit for syncope and low BP, had falled at home broke some ribs and L2 fx. wearing brace. meds adjusted doing better. History of Any Multi-Drug Resistant Organisms: None Reported Past Surgical History: AICD, Bariatric Surgery, Cholecystectomy, Joint Replacement, Pacemaker Additional Past Surgical History / Comment(s): cervical wedge in neck. rt shoulder replaced. valentina knees replaced Past Anesthesia/Blood Transfusion Reactions: No Reported Reaction Additional Past Anesthesia/Blood Transfusion Reaction / Comment(s): has had problems urinating after anesthesia in the past. Type of Cardiac Device: Permanent Pacemaker, AICD Device Placement Date:: 2010 Past Psychological History: No Psychological Hx Reported Smoking Status: Former smoker Past Alcohol Use History: Occasional Past Drug Use History: None Reported - Past Family History Father Family Medical History: Congestive Heart Failure (CHF), COPD, Diabetes Mellitus Mother Family Medical History: Congestive Heart Failure (CHF), Diabetes Mellitus Medications and Allergies Home Medications Medication Instructions Recorded Confirmed Type Escitalopram [Lexapro] 20 mg PO HS 08/10/22 01/14/25 History Famotidine [Pepcid] 20 mg PO BID 08/10/22 01/14/25 History Apixaban [Eliquis] 5 mg PO BID tab 08/18/22 01/14/25 Rx Cholecalciferol [Vitamin D3 (25 25 mcg PO DAILY 06/09/24 01/14/25 History Mcg = 1000 Iu)] Tamsulosin HCl [Flomax] 0.4 mg PO HS 06/09/24 01/14/25 History Metoprolol Succinate (ER) [Toprol 150 mg PO HS 11/13/24 01/14/25 History XL] Furosemide [Lasix] 20 mg PO BID@0900,1600 60 Days #30 11/16/24 01/14/25 Rx tab Amiodarone [Cordarone] 100 mg PO DAILY #90 tablet 12/14/24 01/14/25 Rx Spironolactone [Aldactone] 25 mg PO DAILY #90 tablet 12/14/24 01/14/25 Rx Cyanocobalamin (Vitamin B-12) 1,000 mcg PO DAILY 01/14/25 01/14/25 History [Vitamin B-12] Ferrous Sulfate [Feosol] 325 mg PO DAILY 01/14/25 01/14/25 History HYDROcodone/APAP 10-325MG [[place] 1 tab PO QID PRN 01/14/25 01/14/25 History 10-325] Multivitamins, Thera [Multivitamin 1 tab PO DAILY 01/14/25 01/14/25 History (formulary)] Allergies Allergy/AdvReac Type Severity Reaction Status Date / Time carvedilol [From Coreg] Allergy per PCP Verified 01/14/25 11:32 office Iodinated Contrast Media Allergy Itching Verified 01/14/25 11:32 Physical Exam Vitals: Vital Signs Temp Pulse Resp BP Pulse Ox 01/14/25 15:22 59 L 18 122/95 94 L 01/14/25 13:17 58 L 20 122/95 95 01/14/25 11:57 71 20 116/79 95 01/14/25 10:50 97.5 F L 56 L 20 104/67 95 Intake and Output 01/14/25 01/14/25 01/14/25 06:59 14:59 22:59 Other: Weight 129.274 kg In general patient is alert and oriented x 3 in no distress HEENT head normocephalic and atraumatic Neck is supple no JVD no goiter no lymphadenopathy no carotid bruit Chest examination is clear to auscultation no crackles no wheezing Cardiac exam reveals regular heart sounds S1 and S2 no gallops no murmurs Abdomen is soft nontender no organomegaly with normal bowel sounds Extremity exam reveals no edema no cyanosis or clubbing Neurological examination reveals no gross focal deficits Results CBC & Chem 7: 01/15/25 06:20 01/15/25 06:20 Labs: Abnormal Lab Results - Last 24 Hours (Table) 01/14/25 01/14/25 Range/Units 11:27 11:27 WBC 11.60 H (4.50-10.00) 10*3/uL Immature Gran # 0.05 H (0.00-0.04) 10*3/uL Neutrophils # 8.93 H (1.80-7.70) 10*3/uL Monocytes # 1.08 H (0.20-1.00) 10*3/uL Sodium 134 L (137-145) mmol/L BUN 31 H (9-20) mg/dL Total Protein 5.6 L (6.3-8.2) g/dL Albumin 3.1 L (3.5-5.0) g/dL Assessment and Plan Plan: Chest pain with recent chest trauma Multiple falls with low back pain and bilateral hip pain Generalized weakness Underlying history of hypertension Underlying history of hyperlipidemia Underlying history of valvular heart disease Underlying history of nonischemic cardiomyopathy Underlying history of permanent atrial fibrillation Status post AICD placement At this time patient was seen and examined Home medications reviewed and reordered Cardiology consultation requested At this time will check x-ray of the lumbar spine and pelvis with the bilateral hips Consult orthopedic surgery Physical therapy and Occupational Therapy, consult for inpatient rehab
--- NOTE | 2025-01-15 14:34 | P.PN ---
Subjective Progress Note Date: 01/15/25 Idris Duenas, is an 79-year-old male who presented to [facility] emergency room with a chief complaint of chest pain, patient was recently seen in emergency room after sustaining a fall with chest trauma, he was evaluated in the emergency room on 01/08/2025, CT scan of the chest was done and patient was discharged home. Patient continued to feel very weak, he had another fall where he slid off his chair, he was on the floor for 4 hours until the fire department were able to come and pick him, he is complaining of generalized weakness and low back pain and bilateral hip pain. He was evaluated in the emergency room vital examination on presentation revealed a temperature of 97.5 pulse 56 respiration 20 blood pressure 104/67 pulse ox 95% on room air Laboratory data revealed a white blood count of 11.6 hemoglobin 14.0 platelet count 183 BUN 31 creatinine 0.99 Testing in the emergency room revealed EKG revealed atrial fibrillation with slow ventricular response, chest x-ray revealed no germain consolidation or pleural effusion mild cardiomegaly. Patient was admitted to medical floor for further evaluation and treatment On 01/15/2025 patient was seen and examined on the medical floor he is alert and oriented x 3 in no apparent distress he is still complaining of generalized weakness complaining of pain in the chest wall and complaining of lower back pain and bilateral hip pain with difficulty standing walking, otherwise he denies any complaints there is no fever or chills no headache or dizziness no shortness of breath or cough no nausea or vomiting no abdominal pain no diarrhea and no urinary symptoms Objective - Vital Signs Vital signs: Vital Signs Temp 97.6 F 01/15/25 14:26 Pulse 56 L 01/15/25 14:26 Resp 16 01/15/25 14:26 BP 142/97 01/15/25 14:26 Pulse Ox 95 01/15/25 14:26 FiO2 Intake & Output 01/14/25 01/15/25 01/15/25 18:59 06:59 18:59 Weight 129.274 kg Other: # Voids 2 2 # Bowel Movements 1 1 - Exam In general patient is alert and oriented x 3 in no distress HEENT head normocephalic and atraumatic Neck is supple no JVD no goiter no lymphadenopathy no carotid bruit Chest examination is clear to auscultation no crackles no wheezing Cardiac exam reveals regular heart sounds S1 and S2 no gallops no murmurs Abdomen is soft nontender no organomegaly with normal bowel sounds Extremity exam reveals no edema no cyanosis or clubbing Neurological examination reveals no gross focal deficits - Labs CBC & Chem 7: 01/15/25 06:20 01/15/25 06:20 Labs: Abnormal Lab Results - Last 24 Hours (Table) 01/15/25 01/15/25 Range/Units 06:20 06:20 MCHC 31.0 L (32.0-37.0) g/dL RDW 15.1 H (11.5-14.5) % BUN/Creatinine Ratio 24.70 H (12.00-20.00) Ratio Total Protein 5.5 L (6.2-8.2) g/dL Albumin 3.2 L (3.8-4.9) g/dL Albumin/Globulin Ratio 1.39 L (1.60-3.17) Ratio Assessment and Plan Plan: Chest pain with recent chest trauma Multiple falls with low back pain and bilateral hip pain Generalized weakness Underlying history of hypertension Underlying history of hyperlipidemia Underlying history of valvular heart disease Underlying history of nonischemic cardiomyopathy Underlying history of permanent atrial fibrillation Status post AICD placement At this time patient was seen and examined Home medications reviewed and reordered Cardiology consultation requested At this time will check x-ray of the lumbar spine and pelvis with the bilateral hips Consult orthopedic surgery Physical therapy and Occupational Therapy, consult for inpatient rehab
--- NOTE | 2025-01-15 15:35 | XR ---
EXAMINATION TYPE: XR lumbar spine 3V, XR Hip 2 views Bilateral and AP pelvis DATE OF EXAM: 01/15/2025 3:06 PM COMPARISON: CT abdomen and pelvis 10/28/2024 CLINICAL INDICATION: Male, 79 years old with history of fall, back pain; PHH, pain FINDINGS: Lumbar spine: Extensive atherosclerotic calcifications abdominal aorta and iliac arteries. Marked osteopenia limiti ng assessment. There appear to be 5 lumbar-type vertebral bodies. Advanced hypertrophic facet arthrop athy especially mid to lower lumbar spine. There is degenerative grade 1 retrolisthesis L2-L3 and gra de 1 anterolisthesis L4-L5. Accentuated lower lumbar lordosis. There is chronic anterior wedge deform ity of L2 and mild superior endplate deformities T11 and T12. Pelvis and both hips: Marked osteopenia. SI joints appear symmetric and intact as does the pubic symphysis and both hips. T he degree of osteopenia limits the evaluation. No displaced fracture seen. Arterial calcifications th roughout. IMPRESSION: 1. Lumbar spine: Limited by osteopenia. Advanced hypertrophic facet arthropathy lower lumbar spine wi th degenerative grade 1 anterolisthesis L4-L5. Trace grade 1 retrolisthesis L2-L3. Chronic anterior w edge deformity of L2 and minimal superior endplate deformities T11 and T12. No new vertebral compress ion collapse. 2. Pelvis and both hips: The degree of marked osteopenia limits the evaluation. No displaced fracture is seen. [facility], , 01/15/2025 3:32 PM
--- NOTE | 2025-01-15 17:37 | P.CNOR ---
History of Present Illness - [facility] Consult date: 01/15/25 Requesting physician: Angel Butts Consult reason: low back pain History of present illness: Very pleasant 79-year-old male well-known to our service who is seen in for low back pain. He was recently seen and evaluated in the emergency department on 01/08/2025 after sustaining a fall with chest trauma after landing on a sweeper. He was discharged home that day. He states his pain feels differently than before and does not feel like fracture pain he experienced in the past. He does have significant chest pain after his fall. He states he feels generally weak and generally painful over the course of his body without specific pain other than his chest pain. He denies any hip pain bilaterally. He denies any lower extremity radiculopathy bilaterally. He denies specific lower extremity weakness. He feels he just feels generally weaker and would like to work with strength and mobility. We were treating him in the outpatient setting for a T9 fracture status post f all 10/25/2024. He was utilizing TLSO bracing in the outpatient setting. He is admitted to medicine. He does have a history of multiple falls. Other medical diagnoses include hypertension, hyperlipidemia,, nonischemic cardiomyopathy, atrial fibrillation, and AICD placement. He is unable to under go MRI imaging. Has been seen by cardiology as well. Past Medical History Past Medical History: Atrial Fibrillation, Cancer, Heart Failure, Hearing Disorder / Deafness, Hypertension, Sleep Apnea/CPAP/BIPAP, Syncope Additional Past Medical History / Comment(s): aortic aneurysm, Seasonal allergies. see Dr Arnold H&P. sleep apnea does not wear cpap. uses hospital bed with HOB elevated. skin cancer Basal cell. [place]. recent admit for syncope and low BP, had falled at home broke some ribs and L2 fx. wearing brace. meds ad justed doing better. History of Any Multi-Drug Resistant Organisms: None Reported Past Surgical History: AICD, Bariatric Surgery, Cholecystectomy, Joint Replacement, Pacemaker Additional Past Surgical History / Comment(s): cervical wedge in neck. rt shoulder replaced. [place] knees replaced Past Anesthesia/Blood Transfusion Reactions: No Reported Reaction Additional Past Anesthesia/Blood Transfusion Reaction / Comm: has had problems urinating after anesthesia in the past. Type of Cardiac Device: Permanent Pacemaker, AICD Device Placement Date:: 2010 Past Psychological History: No Psychological Hx Reported Smoking Status: Former smoker Past Alcohol Use History: Occasional Past Drug Use History: None Reported - Past Family History Father Family Medical History: Congestive Heart Failure (CHF), COPD, Diabetes Mellitus Mother Family Medical History: Congestive Heart Failure (CHF), Diabetes Mellitus Medications and Allergies Home Medications Medication Instructions Recorded Confirmed Type Escitalopram [Lexapro] 20 mg PO HS 08/10/22 01/14/25 History Famotidine [Pepcid] 20 mg PO BID 08/10/22 01/14/25 History Apixaban [Eliquis] 5 mg PO BID tab 08/18/22 01/14/25 Rx Cholecalciferol [Vitamin D3 (25 25 mcg PO DAILY 06/09/24 01/14/25 History Mcg = 1000 Iu)] Tamsulosin HCl [Flomax] 0.4 mg PO HS 06/09/24 01/14/25 History Metoprolol Succinate (ER) [Toprol 150 mg PO HS 11/13/24 01/14/25 History XL] Furosemide [Lasix] 20 mg PO BID@0900,1600 60 Days #30 11/16/24 01/14/25 Rx tab Amiodarone [Cordarone] 100 mg PO DAILY #90 tablet 12/14/24 01/14/25 Rx Spironolactone [Aldactone] 25 mg PO DAILY #90 tablet 12/14/24 01/14/25 Rx Cyanocobalamin (Vitamin B-12) 1,000 mcg PO DAILY 01/14/25 01/14/25 History [Vitamin B-12] Ferrous Sulfate [Feosol] 325 mg PO DAILY 01/14/25 01/14/25 History HYDROcodone/APAP 10-325MG [[place] 1 tab PO QID PRN 01/14/25 01/14/25 History 10-325] Multivitamins, Thera [Multivitamin 1 tab PO DAILY 01/14/25 01/14/25 History (formulary)] Allergies Allergy/AdvReac Type Severity Reaction Status Date / Time carvedilol [From Coreg] Allergy per PCP Verified 01/14/25 11:32 office Iodinated Contrast Media Allergy Itching Verified 01/14/25 11:32 Physical Examination Physical exam: Patient is awake, alert, and oriented 3 Vital signs stable Good chest excursion with deep inspiration and expiration Abdomen soft nontender Examination of thoracic and lumbar spine reveals skin is intact with no abrasions, lacerations, or bruises; no erythema, purulence or signs of infection No pain with palpation of the lumbar spine. Some pain with palpation over the paraspinal muscles at the mid to upper thoracic spine Dorsiflexion, plantarflexion, and extensor hallucis longus positive sustained bilaterally Straight leg test negative bilateral lower extremities Negative Lasegue's test bilaterally No signs or symptoms of DVT; no calf pain No pain with internal and external rotation of the hips bilaterally Neurologically intact bilateral lower extremities Results Pertinent studies: X-rays of the lumbosacral spine taken on 01/15/2025: Chronic L2 compression f racture deformity with osteophytic spurring; L4-5 spondylolisthesis; facet spondylosis; T10-L1 degenerative disc disease; vascular calcification; x-rays appear stable as compared to previous imaging taken in outpatient setting on 12/25/2022 X-ray of the pelvis taken on 01/15/2025: Hip joint spacing appears to be adequate maintained bilaterally; no fracture or dislocation within the pelvis CT of the chest taken on 01/08/2025: Ascending thoracic aortic aneurysm measuring 4.4 cm; imaging reviewed for orthopedic purposes which shows evidence of previously visualized compression fracture deformity of the T9 which appears stable; T9 compression fracture deformity appears stable as compared to x-ray imaging taken at [facility] on 11/30/2024 - Labs Labs: Abnormal Lab Results - Last 24 Hours (Table) 01/15/25 01/15/25 Range/Units 06:20 06:20 MCHC 31.0 L (32.0-37.0) g/dL RDW 15.1 H (11.5-14.5) % BUN/Creatinine Ratio 24.70 H (12.00-20.00) Ratio Total Protein 5.5 L (6.2-8.2) g/dL Albumin 3.2 L (3.8-4.9) g/dL Albumin/Globulin Ratio 1.39 L (1.60-3.17) Ratio H & H 01/14/25 01/15/25 Range/Units 11:27 06:20 Hgb 14.0 13.5 (13.0-17.0) g/dL Hct 42.3 43.6 (39.6-50.0) % Coagulation 07/17/25 Range/Units 11:27 INR 1.0 (<1.2) Result Diagrams: 01/15/25 06:20 01/15/25 06:20 Assessment and Plan Assessment: Assessment: Status post fall on chest Sternal pain Chronic compression fracture deformities of T9 and L2 L4-5 spondylolisthesis Generalized pain and weakness Status post fall on 10/25/2024 Status post fall on 01/08/2025 Atrial fibrillation AICD placement Nonischemic cardiomyopathy Hypertension Hyperlipidemia Multiple falls Abdominal aortic aneurysm (1) Compression fracture of T9 vertebra Current Visit: Yes Status: Acute Code(s): S22.070A - WEDGE COMPRESSION FRACTURE OF T9-T10 VERTEBRA, INIT SNOMED Code(s): 711358070 (2) Compression fracture of L2 Current Visit: Yes Status: Acute Code(s): S32.020A - WEDGE COMPRESSION FRACTURE OF SECOND LUMBAR VERTEBRA, INIT SNOMED Code(s): 70668678369407697 (3) General weakness Current Visit: Yes Status: Acute Code(s): R53.1 - WEAKNESS SNOMED Code(s): 47515682 (4) Hypertension Current Visit: Yes Status: Acute Code(s): I10 - ESSENTIAL (PRIMARY) HYPERTENSION SNOMED Code(s): 49360439 (5) Hyperlipidemia Current Visit: Yes Status: Acute Code(s): E78.5 - HYPERLIPIDEMIA, UNSPECIFIED SNOMED Code(s): 39463762 (6) Abdominal aortic aneurysm Current Visit: Yes Status: Acute Code(s): I71.40 - ABDOMINAL AORTIC ANEURYSM, WITHOUT RUPTURE, UNSPECIFIED SNOMED Code(s): 059006979 (7) Nonischemic cardiomyopathy Current Visit: Yes Status: Acute Code(s): I42.8 - OTHER CARDIOMYOPATHIES SNOMED Code(s): 09731916 (8) AICD (automatic cardioverter/defibrillator) present Current Visit: Yes Status: Acute Code(s): Z95.810 - PRESENCE OF AUTOMATIC (IMPLANTABLE) CARDIAC DEFIBRILLATOR SNOMED Code(s): 035588754 (9) Atrial fibrillation Current Visit: Yes Status: Acute Code(s): I48.91 - UNSPECIFIED ATRIAL FIBRILLATION SNOMED Code(s): 34437840 (10) Chest pain Current Visit: Yes Status: Acute Code(s): R07.9 - CHEST PAIN, UNSPECIFIED SNOMED Code(s): 81182401 (11) Fall Current Visit: No Status: Acute Code(s): W19.XXXA - UNSPECIFIED FALL, INITIAL ENCOUNTER SNOMED Code(s): 6618252 (12) History of pacemaker Current Visit: No Status: Acute Code(s): Z95.0 - PRESENCE OF CARDIAC PACEMAKER SNOMED Code(s): 532977732 Plan: Plan: 1. Patient is well-known to our service who has sustained multiple falls and is known to have multiple deformities of T9 and L2. He does not require bracing. Reviewing of multiple imaging modalities does not show evidence of acute fracture at his thoracic or lumbar spines. He does have significant pain and bruising at his chest status post fall on 01/08/2025 with chest injury after falling on a sweeper. Currently, we are not planning for significant treatment or further evaluation with imaging in regards to his thoracic or lumbar spines. He will continue with conservative treatment. Patient states he does not feel like he has a fracture pain but feels generally weaker in general pain throughout his body. Currently, we would recommend the patient continue with conservative treatment. He may work with physical therapy to increase his mobility and ambulation. I do feel the patient could benefit from discharge to a rehabilitation facility. This is the patient's plan at the time of discharge. He will most likely remain in the hospital over the weekend with plans to discharge to rehabilitation facility once approved which most likely will not be till this coming 01/18/2025. Following discharge, we will plan to have the patient follow-up in the outpatient setting. Patient may follow-up with Bernardo Holt PA-C or Dr. Yemi Tinoco at [facility] in 4 weeks following discharge. 2. Patient will continue to be seen and examined by medicine for his other medical diagnoses. 3. Patient will continue with evaluation with cardiology during his admission per their recommendations Time with Patient: Greater than 30 (Including obtaining history, physical examination, reviewing of imaging, and dictation.)
--- NOTE | 2025-01-16 11:45 | P.PN ---
Subjective Progress Note Date: 01/16/25 This is a 79-year-old male with a past medical history significant for minimal CAD, cardiomyopathy, AICD implantation, permanent atrial fibrillation, valvular heart disease, hypertension, and hyperlipidemia. Patient follows in the office with Dr. Jay. We have been asked to see the patient in consultation for chest pain. Patient examined at the bedside. Patient states that he fell at home when he tripped over a dog bed. He states that he landed on a vacuum. He reports he has been having chest pain since that time. He states the pain is worse with deep inspiration. The patient does have significant bruising across his chest. DIAGNOSTICS: - EKG reveals atrial fibrillation with controlled ventricular rate. - Chest xray prominent hypoventilatory changes limiting assessment. Correlate to exclude mild pulmonary vascular congestion - Laboratory data: Troponin negative x 3. proBNP 2470. - Current home cardiac medications include amiodarone 100 mg daily, Eliquis 5 mg twice a day, Lasix 20 mg twice a day, metoprolol succinate 150 mg at night, Aldactone 25 mg daily. - Most recent echocardiogram obtained in March 2024 revealing ejection fraction 35%, mild AR, moderate MR, mild , dilated ascending aorta measuring 4.1 cm - Cardiac catheterization history: September 2022 revealing minimal CAD 01/16/2025 Patient was seen and examined sitting up at the side of the bed. Continues to complain of musculoskeletal chest discomfort with significant bruising across the chest wall. Breathing is stable. Denies edema. Echocardiogram was stable showing an ejection fraction of 30 to 35%. PHYSICAL EXAM: VITAL SIGNS: Reviewed. GENERAL: Well-developed in no acute distress. HEENT: Head is normocephalic. Pupils are equal, round. Sclerae anicteric. Mucous membranes of the mouth are moist. Neck supple. No JVD or thyromegaly LUNGS: Respirations even and unlabored. Lungs essentially clear to auscultation bilaterally. HEART: Irregular rate and rhythm. S1 and S2 heard. ABDOMEN: Soft. Nondistended. Nontender. EXTREMITIES: Normal range of motion. No clubbing or cyanosis. Peripheral pulses intact. No lower extremity edema NEUROLOGIC: Awake and alert. Oriented x 3. ASSESSMENT: Chest wall pain, status post fall Minimal CAD per cath September 2022 Nonischemic cardiomyopathy History of AICD implantation Permanent atrial fibrillation Valvular heart disease Hypertension Hyperlipidemia PLAN: From cardiology's perspective patient is stable for discharge home. He will follow-up in the office with Dr. Jay. [employer] note has been reviewed, I agree with a documented findings and plan of care. Patient was seen and examined. Objective - Vital Signs Vital signs: Vital Signs Temp 97.5 F L 01/16/25 07:00 Pulse 62 01/16/25 07:00 Resp 17 01/16/25 07:00 BP 105/57 01/16/25 07:00 Pulse Ox 96 01/16/25 07:00 FiO2 Intake & Output 01/15/25 01/16/25 01/16/25 18:59 06:59 18:59 Other: # Voids 2 3 # Bowel Movements 1 - Labs CBC & Chem 7: 01/15/25 06:20 01/15/25 06:20
--- NOTE | 2025-01-16 14:55 | P.PN ---
Subjective Progress Note Date: 01/16/25 Idris Duenas, is an 79-year-old male who presented to [facility] emergency room with a chief complaint of chest pain, patient was recently seen in emergency room after sustaining a fall with chest trauma, he was evaluated in the emergency room on 01/08/2025, CT scan of the chest was done and patient was discharged home. Patient continued to feel very weak, he had another fall where he slid off his chair, he was on the floor for 4 hours until the fire department were able to come and pick him, he is complaining of generalized weakness and low back pain and bilateral hip pain. He was evaluated in the emergency room vital examination on presentation revealed a temperature of 97.5 pulse 56 respiration 20 blood pressure 104/67 pulse ox 95% on room air Laboratory data revealed a white blood count of 11.6 hemoglobin 14.0 platelet count 183 BUN 31 creatinine 0.99 Testing in the emergency room revealed EKG revealed atrial fibrillation with slow ventricular response, chest x-ray revealed no germain consolidation or pleural effusion mild cardiomegaly. Patient was admitted to medical floor for further evaluation and treatment On 01/15/2025 patient was seen and examined on the medical floor he is alert and oriented x 3 in no apparent distress he is still complaining of generalized weakness complaining of pain in the chest wall and complaining of lower back pain and bilateral hip pain with difficulty standing walking, otherwise he denies any complaints there is no fever or chills no headache or dizziness no shortness of breath or cough no nausea or vomiting no abdominal pain no diarrhea and no urinary symptoms On 01/16/2025 patient was seen and examined on the medical floor he is alert and oriented x 3 in no apparent distress he isl complaining of weakness complaining of pain in the chest wall and complaining of lower back pain and bilateral hip pain with difficulty standing walking, otherwise he denies any complaints there is no fever or chills no headache or dizziness no shortness of breath or cough no nausea or vomiting no abdominal pain no diarrhea and no urinary symptoms. Plan at this time to continue with physical therapy and Occupational Therapy, awaiting possible transfer to rehab on Saturday. Objective - Vital Signs Vital signs: Vital Signs Temp 97.5 F L 01/16/25 07:00 Pulse 62 01/16/25 07:00 Resp 17 01/16/25 07:00 BP 105/57 01/16/25 07:00 Pulse Ox 96 01/16/25 07:00 FiO2 Intake & Output 01/15/25 01/16/25 01/16/25 18:59 06:59 18:59 Other: # Voids 2 3 # Bowel Movements 1 - Exam In general patient is alert and oriented x 3 in no distress HEENT head normocephalic and atraumatic Neck is supple no JVD no goiter no lymphadenopathy no carotid bruit Chest examination is clear to auscultation no crackles no wheezing Cardiac exam reveals regular heart sounds S1 and S2 no gallops no murmurs Abdomen is soft nontender no organomegaly with normal bowel sounds Extremity exam reveals no edema no cyanosis or clubbing Neurological examination reveals no gross focal deficits - Labs CBC & Chem 7: 01/15/25 06:20 01/15/25 06:20 Assessment and Plan Plan: Chest pain with recent chest trauma Multiple falls with low back pain and bilateral hip pain Generalized weakness Underlying history of hypertension Underlying history of hyperlipidemia Underlying history of valvular heart disease Underlying history of nonischemic cardiomyopathy Underlying history of permanent atrial fibrillation Status post AICD placement At this time patient was seen and examined Home medications reviewed and reordered Cardiology consultation requested At this time will check x-ray of the lumbar spine and pelvis with the bilateral hips Consult orthopedic surgery Physical therapy and Occupational Therapy, consult for inpatient rehab
[2025-01-17 09:03] LABS: Basophils # (A) 0.04 X 10*3/uL (0.00-0.10); Basophils % (A) 0.5 %; Eosinophils # (A) 0.21 X 10*3/uL (0.04-0.35); Eosinophils % (A) 2.7 %; HCT 41.8 % (39.6-50.0); HGB 12.6 g/dL (13.0-17.0); Immature Grans, Automated 0.40 %; Lymphocytes # (A) 1.08 X 10*3/uL (0.90-5.00); Lymphocytes % (A) 13.8 %; MCH 28.1 pg (27.0-32.0); MCHC 30.1 g/dL (32.0-37.0); MCV 93.1 FL (80.0-97.0); Monocytes # (A) 0.87 X 10*3/uL (0.20-1.00); Monocytes % (A) 11.1 %; NRBC Per 100 WBC 0 X 10*3/uL (0.00-0.01); Neutrophils # (A) 5.60 X 10*3/uL (1.80-7.70); Neutrophils % (A) 71.5 %; Platelet Count 199 X 10*3/uL (140-440); RBC 4.49 X 10*6/uL (4.40-5.60); RDW 14.9 % (11.5-14.5); WBC 7.83 X 10*3/uL (4.50-10.00)
[2025-01-17 09:08] LABS: ALT 27 U/L (10-49); AST 26 U/L (14-35); Albumin 3.3 g/dL (3.8-4.9); Albumin/Globulin Ratio 1.50 Ratio (1.60-3.17); Alkaline Phosphatase 119 U/L (41-126); Anion Gap 9.20 mmol/L (4.00-12.00); BUN/Creat Ratio 20.92 Ratio (12.00-20.00); Blood Urea Nitrogen 27.2 mg/dL (9.0-27.0); Calcium 8.7 mg/dL (8.7-10.3); Carbon Dioxide 27.8 mmol/L (21.6-31.8); Chloride 98 mmol/L (96-109); Globulin 2.2 g/dL (1.6-3.3); Glucose 134 mg/dL (70-110); Potassium 4.6 mmol/L (3.5-5.5); Sodium 135 mmol/L (135-145); Total Protein 5.5 g/dL (6.2-8.2)
--- NOTE | 2025-01-17 09:57 | P.PN ---
Subjective Progress Note Date: 01/17/25 Idris Duenas, is an 79-year-old male who presented to [facility] emergency room with a chief complaint of chest pain, patient was recently seen in emergency room after sustaining a fall with chest trauma, he was evaluated in the emergency room on 01/08/2025, CT scan of the chest was done and patient was discharged home. Patient continued to feel very weak, he had another fall where he slid off his chair, he was on the floor for 4 hours until the fire department were able to come and pick him, he is complaining of generalized weakness and low back pain and bilateral hip pain. He was evaluated in the emergency room vital examination on presentation revealed a temperature of 97.5 pulse 56 respiration 20 blood pressure 104/67 pulse ox 95% on room air Laboratory data revealed a white blood count of 11.6 hemoglobin 14.0 platelet count 183 BUN 31 creatinine 0.99 Testing in the emergency room revealed EKG revealed atrial fibrillation with slow ventricular response, chest x-ray revealed no germain consolidation or pleural effusion mild cardiomegaly. Patient was admitted to medical floor for further evaluation and treatment On 01/15/2025 patient was seen and examined on the medical floor he is alert and oriented x 3 in no apparent distress he is still complaining of generalized w eakness complaining of pain in the chest wall and complaining of lower back pain and bilateral hip pain with difficulty standing walking, otherwise he denies any complaints there is no fever or chills no headache or dizziness no shortness of breath or cough no nausea or vomiting no abdominal pain no diarrhea and no urinary symptoms On 01/16/2025 patient was seen and examined on the medical floor he is alert and oriented x 3 in no apparent distress he isl complaining of weakness complaining of pain in the chest wall and complaining of lower back pain and bilateral hip pain with difficulty standing walking, otherwise he denies any complaints there is no fever or chills no headache or dizziness no shortness of breath or cough no nausea or vomiting no abdominal pain no diarrhea and no urinary symptoms. Plan at this time to continue with physical therapy and Occupational Therapy, awaiting possible transfer to rehab on Saturday. ' On 01/17/2025 patient is alert and oriented x 3. Patient is currently sitting up in chair reports some complaint with coughing and movement. Cardiology has mustapha ared patient. Awaiting PT OT recommendations with possible transfer to rehab. Patient denies nausea vomiting or diarrhea. Patient denies any urinary burning or frequency. Current vital signs temp 97.4, rate 62, respiratory rate 16, blood [id number] with a pulse ox 96% on room air Objective - Vital Signs Vital signs: Vital Signs Temp 97.4 F L 01/17/25 08:20 Pulse 62 01/17/25 08:20 Resp 16 01/17/25 08:20 BP 119/75 01/17/25 08:20 Pulse Ox 96 01/17/25 08:20 FiO2 Intake & Output 01/16/25 01/17/25 01/17/25 18:59 06:59 18:59 Intake Total 540 Balance 540 Intake: Oral 540 Other: # Voids 3 3 1 - Exam In general patient is alert and oriented x 3 in no distress HEENT head normocephalic and atraumatic Neck is supple no JVD no goiter no lymphadenopathy no carotid bruit Chest examination is clear to auscultation no crackles no wheezing Cardiac exam reveals regular heart sounds S1 and S2 no gallops no murmurs Abdomen is soft nontender no organomegaly with normal bowel sounds Extremity exam reveals no edema no cyanosis or clubbing Neurological examination reveals no gross focal deficits - Labs CBC & Chem 7: 01/17/25 03:58 01/17/25 03:58 Labs: Abnormal Lab Results - Last 24 Hours (Table) 01/17/25 01/17/25 Range/Units 03:58 03:58 Hgb 12.6 L (13.0-17.0) g/dL MCHC 30.1 L (32.0-37.0) g/dL RDW 14.9 H (11.5-14.5) % BUN 27.2 H (9.0-27.0) mg/dL Est GFR (CKD-EPI) 56 L (>=60) BUN/Creatinine Ratio 20.92 H (12.00-20.00) Ratio Glucose 134 H (70-110) mg/dL Total Protein 5.5 L (6.2-8.2) g/dL Albumin 3.3 L (3.8-4.9) g/dL Albumin/Globulin Ratio 1.50 L (1.60-3.17) Ratio Assessment and Plan Assessment: Chest pain with recent chest trauma Multiple falls with low back pain and bilateral hip pain Generalized weakness Underlying history of hypertension Underlying history of hyperlipidemia Underlying history of valvular heart disease Underlying history of nonischemic cardiomyopathy Underlying history of permanent atrial fibrillation Status post AICD placement At this time patient was seen and examined Home medications reviewed and reordered Cardiology consultation requested At this time will check x-ray of the lumbar spine and pelvis with the bilateral hips Consult orthopedic surgery Physical therapy and Occupational Therapy, consult for inpatient rehab
--- NOTE | 2025-01-18 09:52 | P.CONS ---
History of Present Illness - Reason for Consult Consult date: 01/18/25 rehab recommendations - Chief Complaint pain/weakness - History of Present Illness Idris is a 79 year old, male, who lives in a one story home, with ramp entry. Prior to admission, pt was ambulating with an assistive device; has cane, walker and power wheelchair. Pt was independent for basic/advanced ADLs. Support system: Patient presented to [facility] ED on 01/14/25 due to chest pain. Per records, patient was recently seen in emergency room after sustaining a fall wit h chest trauma, he was evaluated in the emergency room on 01/08/2025, CT scan of the chest was done, which was negative for acute trauma, and patient was discharged home. Patient continued to feel very weak, he had another fall where he slid off his chair, he was on the floor for 4 hours until the fire department were able to come and pick him, he is complaining of generalized weakness and low back pain and bilateral hip pain. Testing in the emergency room revealed EKG revealed atrial fibrillation with slow ventricular response, chest x-ray revealed no germain consolidation or pleural effusion, mild cardiomegaly. Patient was seen by cardiology and orthopedic teams. Therapy evaluations reviewed, patient needing: Bharat with all ADLS, transfers supervision, 80 feet Bharat 2WW. 01/18: Patient seen and examined resting in bed, reports chest discomfort due to recent fall chest trauma. Reports history of rib fractures, unclear when this occurred. Denies complaints with bowels and bladder, denies SOB. States he feels very weak, interested in going somewhere for therapy prior to returning home. Patient reports he was unable to get out of bed to use the restroom, had an accident while waiting for assistance and needs to be changed. Therapy and staff in room to assist patient to the restroom and shower at time of examination, unable to complete full examination. Review of Systems as above in subjective. Past Medical History Past Medical History: Atrial Fibrillation, Cancer, Heart Failure, Hearing Disorder / Deafness, Hypertension, Sleep Apnea/CPAP/BIPAP, Syncope Additional Past Medical History / Comment(s): aortic aneurysm, Seasonal allergies. see Dr Arnold H&P. sleep apnea does not wear cpap. uses hospital bed with HOB elevated. skin cancer Basal cell. AKIACHAK. recent admit for syncope and low BP, had falled at home broke some ribs and L2 fx. wearing brace. meds adjusted doing better. History of Any Multi-Drug Resistant Organisms: None Reported Past Surgical History: AICD, Bariatric Surgery, Cholecystectomy, Joint Replacement, Pacemaker Additional Past Surgical History / Comment(s): cervical wedge in neck. rt shoulder replaced. [place] knees replaced Past Anesthesia/Blood Transfusion Reactions: No Reported Reaction Additional Past Anesthesia/Blood Transfusion Reaction / Comm: has had problems urinating after anesthesia in the past. Type of Cardiac Device: Permanent Pacemaker, AICD Device Placement Date:: 2010 Past Psychological History: No Psychological Hx Reported Smoking Status: Former smoker Past Alcohol Use History: Occasional Past Drug Use History: None Reported - Past Family History Father Family Medical History: Congestive Heart Failure (CHF), COPD, Diabetes Mellitus Mother Family Medical History: Congestive Heart Failure (CHF), Diabetes Mellitus Medications and Allergies Home Medications Medication Instructions Recorded Confirmed Type Escitalopram [Lexapro] 20 mg PO HS 08/10/22 01/14/25 History Famotidine [Pepcid] 20 mg PO BID 08/10/22 01/14/25 History Apixaban [Eliquis] 5 mg PO BID tab 08/18/22 01/14/25 Rx Cholecalciferol [Vitamin D3 (25 25 mcg PO DAILY 06/09/24 01/14/25 History Mcg = 1000 Iu)] Tamsulosin HCl [Flomax] 0.4 mg PO HS 06/09/24 01/14/25 History Metoprolol Succinate (ER) [Toprol 150 mg PO HS 11/13/24 01/14/25 History XL] Furosemide [Lasix] 20 mg PO BID@0900,1600 60 Days #30 11/16/24 01/14/25 Rx tab Amiodarone [Cordarone] 100 mg PO DAILY #90 tablet 12/14/24 01/14/25 Rx Spironolactone [Aldactone] 25 mg PO DAILY #90 tablet 12/14/24 01/14/25 Rx Cyanocobalamin (Vitamin B-12) 1,000 mcg PO DAILY 01/14/25 01/14/25 History [Vitamin B-12] Ferrous Sulfate [Feosol] 325 mg PO DAILY 01/14/25 01/14/25 History HYDROcodone/APAP 10-325MG [Meridian 1 tab PO QID PRN 01/14/25 01/14/25 History 10-325] Multivitamins, Thera [Multivitamin 1 tab PO DAILY 01/14/25 01/14/25 History (formulary)] Allergies Allergy/AdvReac Type Severity Reaction Status Date / Time carvedilol [From Coreg] Allergy per PCP Verified 01/14/25 11:32 office Iodinated Contrast Media Allergy Itching Verified 01/14/25 11:32 Physical Exam Vitals: Vital Signs Temp Pulse Resp BP BP Pulse Ox 01/18/25 07:37 98.0 F 56 L 16 108/74 97 01/18/25 02:00 15 01/18/25 01:04 98.4 F 50 L 15 131/83 95 01/17/25 20:00 61 17 01/17/25 19:02 97.7 F 52 L 17 114/69 94 L 01/17/25 15:00 97.4 F L 60 16 90/56 96 Intake and Output 01/17/25 01/18/25 01/18/25 22:59 06:59 14:59 Intake Total 360 0 Balance 360 0 Intake: Oral 360 0 Other: Voiding Method Toilet General: Well-developed, well-nourished, male, in no acute distress HEENT: NC/AT, external ears intact, hearing intact to conversational speech Cardiovascular: no cardiac distress Respiratory: Even and unlabored breathing on RA Abdomen: Soft, nontender, nondistended Musculoskeletal: ROM WFL EXCEPT: generalized weakness Neurological: Alert and oriented x 4. Speech is clear MMT: able to move all extremities to anti-gravity Skin: Skin intact where visible to head, neck, and bilateral upper and lower extremities Psychiatric: Mood calm, affect appropriate, cooperative Results CBC & Chem 7: 01/17/25 03:58 01/17/25 03:58 Assessment and Plan Assessment: # Impaired gait and ADLs 2 Chest pain with recent chest trauma -Comprehensive therapies -cardiology following #Multiple falls with low back pain and bilateral hip pain #Hx chronic T9 and L2 compression fracture -ortho following; per ortho note, no intervention at this time #Generalized weakness #history of nonischemic cardiomyopathy -per records, EF 30-35% #history of permanent atrial fibrillation #Hx AICD placement # Bowel/ Bladder: Nursing to monitor and report concerns if any. # Diet-per EMR # Skin/wound: Skin/Wound care to follow as needed # Pain Management -norco prn, morphine prn # DVT Prophylaxis: eliquis per MAR # Your medical dx and mgt #Comorbidities: hypertension, hyperlipidemia, valvular heart disease Goals: Modified Independent mobility and ADLS both basic and advanced; increased functional mobility/strength; increased balance, safety, endurance. Improvement in medical issues through your care. Barriers: fall risk, weakness Discharge recommendation: Patient is performing below baseline level of function. Patient is more appropriate for a slower paced rehab program such as [facility] for continued rehab. Patient seen and examined in collaboration with Dr. Durbin. Thank you for this consultation.
[2025-01-18 10:46] LABS: Basophils # (A) 0.05 X 10*3/uL (0.00-0.10); Basophils % (A) 0.5 %; Eosinophils # (A) 0.16 X 10*3/uL (0.04-0.35); Eosinophils % (A) 1.5 %; HCT 42.3 % (39.6-50.0); HGB 13.1 g/dL (13.0-17.0); Immature Grans, Automated 0.40 %; Lymphocytes # (A) 1.15 X 10*3/uL (0.90-5.00); Lymphocytes % (A) 11.0 %; MCH 28.5 pg (27.0-32.0); MCHC 31.0 g/dL (32.0-37.0); MCV 92.2 FL (80.0-97.0); Monocytes # (A) 1.18 X 10*3/uL (0.20-1.00); Monocytes % (A) 11.2 %; NRBC Per 100 WBC 0 X 10*3/uL (0.00-0.01); Neutrophils # (A) 7.91 X 10*3/uL (1.80-7.70); Neutrophils % (A) 75.4 %; Platelet Count 209 X 10*3/uL (140-440); RBC 4.59 X 10*6/uL (4.40-5.60); RDW 14.7 % (11.5-14.5); WBC 10.49 X 10*3/uL (4.50-10.00)
[2025-01-18 10:59] LABS: ALT 30 U/L (10-49); AST 30 U/L (14-35); Albumin 3.3 g/dL (3.8-4.9); Albumin/Globulin Ratio 1.50 Ratio (1.60-3.17); Alkaline Phosphatase 135 U/L (41-126); Anion Gap 11.90 mmol/L (4.00-12.00); BUN/Creat Ratio 23.92 Ratio (12.00-20.00); Blood Urea Nitrogen 28.7 mg/dL (9.0-27.0); Calcium 8.9 mg/dL (8.7-10.3); Carbon Dioxide 24.1 mmol/L (21.6-31.8); Chloride 97 mmol/L (96-109); Globulin 2.2 g/dL (1.6-3.3); Glucose 101 mg/dL (70-110); Potassium 4.7 mmol/L (3.5-5.5); Sodium 133 mmol/L (135-145); Total Protein 5.5 g/dL (6.2-8.2)
--- NOTE | 2025-01-18 18:09 | P.PN ---
Subjective Progress Note Date: 01/18/25 Idris Duenas, is an 79-year-old male who presented to [facility] emergency room with a chief complaint of chest pain, patient was recently seen in emergency room after sustaining a fall with chest trauma, he was evaluated in the emergency room on 01/08/2025, CT scan of the chest was done and patient was discharged home. Patient continued to feel very weak, he had another fall where he slid off his chair, he was on the floor for 4 hours until the fire department were able to come and pick him, he is complaining of generalized weakness and low back pain and bilateral hip pain. He was evaluated in the emergency room vital examination on presentation revealed a temperature of 97.5 pulse 56 respiration 20 blood pressure 104/67 pulse ox 95% on room air Laboratory data revealed a white blood count of 11.6 hemoglobin 14.0 platelet count 183 BUN 31 creatinine 0.99 Testing in the emergency room revealed EKG revealed atrial fibrillation with slow ventricular response, chest x-ray revealed no germain consolidation or pleural effusion mild cardiomegaly. Patient was admitted to medical floor for further evaluation and treatment On 01/15/2025 patient was seen and examined on the medical floor he is alert and oriented x 3 in no apparent distress he is still complaining of generalized weakness complaining of pain in the chest wall and complaining of lower back pain and bilateral hip pain with difficulty standing walking, otherwise he denies any complaints there is no fever or chills no headache or dizziness no shortness of breath or cough no nausea or vomiting no abdominal pain no diarrhea and no urinary symptoms On 01/16/2025 patient was seen and examined on the medical floor he is alert and oriented x 3 in no apparent distress he isl complaining of weakness complaining of pain in the chest wall and complaining of lower back pain and bilateral hip pain with difficulty standing walking, otherwise he denies any complaints there is no fever or chills no headache or dizziness no shortness of breath or cough no nausea or vomiting no abdominal pain no diarrhea and no urinary symptoms. Plan at this time to continue with physical therapy and Occupational Therapy, awaiting possible transfer to rehab on Saturday. On 01/17/2025 patient is alert and oriented x 3. Patient is currently sitting up in chair reports some complaint with coughing and movement. Cardiology has mustapha ared patient. Awaiting PT OT recommendations with possible transfer to rehab. Patient denies nausea vomiting or diarrhea. Patient denies any urinary burning or frequency. Current vital signs temp 97.4, rate 62, respiratory rate 16, blood /75 with a pulse ox 96% on room air On 01/18/2025 patient was seen and examined on the medical floor he is alert and oriented x 3 in no apparent distress there is no fever or chills no headache or dizziness no chest pain no shortness of breath no cough no nausea or vomiting no abdominal pain no diarrhea and no urinary symptoms. Consult from inpatient rehab reviewed, patient is not a candidate at this time, awaiting further evaluation by PT OT and possible transfer to rehab. Objective - Vital Signs Vital signs: Vital Signs Temp 97.7 F 01/18/25 15:00 Pulse 75 01/18/25 15:00 Resp 16 01/18/25 15:00 BP 109/72 01/18/25 15:00 Pulse Ox 93 L 01/18/25 15:00 FiO2 Intake & Output 01/17/25 01/18/25 01/18/25 18:59 06:59 18:59 Intake Total 720 0 478 Balance 720 0 478 Intake: Oral 720 0 478 Other: Voiding Method Toilet Toilet # Voids 3 2 - Exam In general patient is alert and oriented x 3 in no distress HEENT head normocephalic and atraumatic Neck is supple no JVD no goiter no lymphadenopathy no carotid bruit Chest examination is clear to auscultation no crackles no wheezing Cardiac exam reveals regular heart sounds S1 and S2 no gallops no murmurs Abdomen is soft nontender no organomegaly with normal bowel sounds Extremity exam reveals no edema no cyanosis or clubbing Neurological examination reveals no gross focal deficits - Labs CBC & Chem 7: 01/18/25 05:56 01/18/25 05:56 Labs: Abnormal Lab Results - Last 24 Hours (Table) 01/18/25 01/18/25 Range/Units 05:56 05:56 WBC 10.49 H (4.50-10.00) X 10*3/uL MCHC 31.0 L (32.0-37.0) g/dL RDW 14.7 H (11.5-14.5) % Neutrophils # 7.91 H (1.80-7.70) X 10*3/uL Monocytes # 1.18 H (0.20-1.00) X 10*3/uL Sodium 133 L (135-145) mmol/L BUN 28.7 H (9.0-27.0) mg/dL BUN/Creatinine Ratio 23.92 H (12.00-20.00) Ratio Alkaline Phosphatase 135 H (41-126) U/L Total Protein 5.5 L (6.2-8.2) g/dL Albumin 3.3 L (3.8-4.9) g/dL Albumin/Globulin Ratio 1.50 L (1.60-3.17) Ratio Assessment and Plan Plan: Chest pain with recent chest trauma Multiple falls with low back pain and bilateral hip pain Generalized weakness Underlying history of hypertension Underlying history of hyperlipidemia Underlying history of valvular heart disease Underlying history of nonischemic cardiomyopathy Underlying history of permanent atrial fibrillation Status post AICD placement At this time patient was seen and examined Home medications reviewed and reordered Cardiology consultation requested At this time will check x-ray of the lumbar spine and pelvis with the bilateral hips Consult orthopedic surgery Physical therapy and Occupational Therapy, consult for inpatient rehab
--- NOTE | 2025-01-19 13:41 | P.PN ---
Subjective Progress Note Date: 01/19/25 Idris Duenas, is an 79-year-old male who presented to [facility] emergency room with a chief complaint of chest pain, patient was recently seen in emergency room after sustaining a fall with chest trauma, he was evaluated in the emergency room on 01/08/2025, CT scan of the chest was done and patient was discharged home. Patient continued to feel very weak, he had another fall where he slid off his chair, he was on the floor for 4 hours until the fire department were able to come and pick him, he is complaining of generalized weakness and low back pain and bilateral hip pain. He was evaluated in the emergency room vital examination on presentation revealed a temperature of 97.5 pulse 56 respiration 20 blood pressure 104/67 pulse ox 95% on room air Laboratory data revealed a white blood count of 11.6 hemoglobin 14.0 platelet count 183 BUN 31 creatinine 0.99 Testing in the emergency room revealed EKG revealed atrial fibrillation with slow ventricular response, chest x-ray revealed no germain consolidation or pleural effusion mild cardiomegaly. Patient was admitted to medical floor for further evaluation and treatment On 01/15/2025 patient was seen and examined on the medical floor he is alert and oriented x 3 in no apparent distress he is still complaining of generalized w eakness complaining of pain in the chest wall and complaining of lower back pain and bilateral hip pain with difficulty standing walking, otherwise he denies any complaints there is no fever or chills no headache or dizziness no shortness of breath or cough no nausea or vomiting no abdominal pain no diarrhea and no urinary symptoms On 01/16/2025 patient was seen and examined on the medical floor he is alert and oriented x 3 in no apparent distress he isl complaining of weakness complaining of pain in the chest wall and complaining of lower back pain and bilateral hip pain with difficulty standing walking, otherwise he denies any complaints there is no fever or chills no headache or dizziness no shortness of breath or cough no nausea or vomiting no abdominal pain no diarrhea and no urinary symptoms. Plan at this time to continue with physical therapy and Occupational Therapy, awaiting possible transfer to rehab on Saturday. ' On 01/17/2025 patient is alert and oriented x 3. Patient is currently sitting up in chair reports some complaint with coughing and movement. Cardiology has mustapha ared patient. Awaiting PT OT recommendations with possible transfer to rehab. Patient denies nausea vomiting or diarrhea. Patient denies any urinary burning or frequency. Current vital signs temp 97.4, rate 62, respiratory rate 16, blood [id number] with a pulse ox 96% on room air On 01/18/2025 patient was seen and examined on the medical floor he is alert and oriented x 3 in no apparent distress there is no fever or chills no headache or dizziness no chest pain no shortness of breath no cough no nausea or vomiting no abdominal pain no diarrhea and no urinary symptoms. Consult from inpatient rehab reviewed, patient is not a candidate at this time, awaiting further evaluation by PT OT and possible transfer to rehab. On 01/19/2025 patient is alert and oriented x 3. Awaiting insurance authorization for placement. Patient denies chest pain or shortness of breath. Patient denies nausea vomiting or diarrhea. Patient denies any urinary burning or frequency. Objective - Vital Signs Vital signs: Vital Signs Temp 97.4 F L 01/19/25 07:30 Pulse 67 01/19/25 09:47 Resp 16 01/19/25 07:30 BP 120/74 01/19/25 09:47 Pulse Ox 94 L 01/19/25 07:30 FiO2 Intake & Output 01/18/25 01/19/25 01/19/25 18:59 06:59 18:59 Intake Total 714 240 Balance 714 240 Intake: Oral 714 240 Other: Voiding Method Toilet Diaper # Voids 2 4 # Bowel Movements 2 - Exam In general patient is alert and oriented x 3 in no distress HEENT head normocephalic and atraumatic Neck is supple no JVD no goiter no lymphadenopathy no carotid bruit Chest examination is clear to auscultation no crackles no wheezing Cardiac exam reveals regular heart sounds S1 and S2 no gallops no murmurs Abdomen is soft nontender no organomegaly with normal bowel sounds Extremity exam reveals no edema no cyanosis or clubbing Neurological examination reveals no gross focal deficits - Labs CBC & Chem 7: 01/18/25 05:56 01/18/25 05:56 Assessment and Plan Assessment: Chest pain with recent chest trauma Multiple falls with low back pain and bilateral hip pain Generalized weakness Underlying history of hypertension Underlying history of hyperlipidemia Underlying history of valvular heart disease Underlying history of nonischemic cardiomyopathy Underlying history of permanent atrial fibrillation Status post AICD placement At this time patient was seen and examined Home medications reviewed and reordered Cardiology consultation requested At this time will check x-ray of the lumbar spine and pelvis with the bilateral hips Consult orthopedic surgery Physical therapy and Occupational Therapy, consult for inpatient rehab
--- NOTE | 2025-01-20 16:44 | P.PN ---
Subjective Progress Note Date: 01/20/25 Idris Duenas, is an 79-year-old male who presented to [facility] emergency room with a chief complaint of chest pain, patient was recently seen in emergency room after sustaining a fall with chest trauma, he was evaluated in the emergency room on 01/08/2025, CT scan of the chest was done and patient was discharged home. Patient continued to feel very weak, he had another fall where he slid off his chair, he was on the floor for 4 hours until the fire department were able to come and pick him, he is complaining of generalized weakness and low back pain and bilateral hip pain. He was evaluated in the emergency room vital examination on presentation revealed a temperature of 97.5 pulse 56 respiration 20 blood pressure 104/67 pulse ox 95% on room air Laboratory data revealed a white blood count of 11.6 hemoglobin 14.0 platelet count 183 BUN 31 creatinine 0.99 Testing in the emergency room revealed EKG revealed atrial fibrillation with slow ventricular response, chest x-ray revealed no germain consolidation or pleural effusion mild cardiomegaly. Patient was admitted to medical floor for further evaluation and treatment On 01/15/2025 patient was seen and examined on the medical floor he is alert and oriented x 3 in no apparent distress he is still complaining of generalized weakness complaining of pain in the chest wall and complaining of lower back pain and bilateral hip pain with difficulty standing walking, otherwise he denies any complaints there is no fever or chills no headache or dizziness no shortness of breath or cough no nausea or vomiting no abdominal pain no diarrhea and no urinary symptoms On 01/16/2025 patient was seen and examined on the medical floor he is alert and oriented x 3 in no apparent distress he isl complaining of weakness complaining of pain in the chest wall and complaining of lower back pain and bilateral hip pain with difficulty standing walking, otherwise he denies any complaints there is no fever or chills no headache or dizziness no shortness of breath or cough no nausea or vomiting no abdominal pain no diarrhea and no urinary symptoms. Plan at this time to continue with physical therapy and Occupational Therapy, awaiting possible transfer to rehab on Saturday. On 01/17/2025 patient is alert and oriented x 3. Patient is currently sitting up in chair reports some complaint with coughing and movement. Cardiology has mustapha ared patient. Awaiting PT OT recommendations with possible transfer to rehab. Patient denies nausea vomiting or diarrhea. Patient denies any urinary burning or frequency. Current vital signs temp 97.4, rate 62, respiratory rate 16, blood [id number] with a pulse ox 96% on room air On 01/18/2025 patient was seen and examined on the medical floor he is alert and oriented x 3 in no apparent distress there is no fever or chills no headache or dizziness no chest pain no shortness of breath no cough no nausea or vomiting no abdominal pain no diarrhea and no urinary symptoms. Consult from inpatient rehab reviewed, patient is not a candidate at this time, awaiting further evaluation by PT OT and possible transfer to rehab. On 01/19/2025 patient is alert and oriented x 3. Awaiting insurance authorization for placement. Patient denies chest pain or shortness of breath. Patient denies nausea vomiting or diarrhea. Patient denies any urinary burning or frequency. On 01/20/2025 was seen and examined on the medical floor she is alert and oriented x 3 in no apparent distress there is no fever or chills no headache or dizziness no chest pain no shortness of breath no cough no nausea or vomiting no abdominal pain no diarrhea and no urinary symptoms. Still awaiting for insurance authorization for rehab admission. Objective - Vital Signs Vital signs: Vital Signs Temp 97.4 F L 01/20/25 07:00 Pulse 56 L 01/20/25 07:00 Resp 16 01/20/25 07:00 BP 117/62 01/20/25 07:00 Pulse Ox 97 01/20/25 07:00 FiO2 Intake & Output 01/19/25 01/20/25 01/20/25 18:59 06:59 18:59 Intake Total 840 240 Balance 840 240 Intake: Oral 840 240 Other: Voiding Method Toilet Toilet Diaper Diaper # Voids 2 2 # Bowel Movements 1 2 - Exam In general patient is alert and oriented x 3 in no distress HEENT head normocephalic and atraumatic Neck is supple no JVD no goiter no lymphadenopathy no carotid bruit Chest examination is clear to auscultation no crackles no wheezing Cardiac exam reveals regular heart sounds S1 and S2 no gallops no murmurs Abdomen is soft nontender no organomegaly with normal bowel sounds Extremity exam reveals no edema no cyanosis or clubbing Neurological examination reveals no gross focal deficits - Labs CBC & Chem 7: 01/18/25 05:56 01/18/25 05:56 Assessment and Plan Plan: Chest pain with recent chest trauma Multiple falls with low back pain and bilateral hip pain Generalized weakness Underlying history of hypertension Underlying history of hyperlipidemia Underlying history of valvular heart disease Underlying history of nonischemic cardiomyopathy Underlying history of permanent atrial fibrillation Status post AICD placement At this time patient was seen and examined Home medications reviewed and reordered Cardiology consultation requested At this time will check x-ray of the lumbar spine and pelvis with the bilateral hips Consult orthopedic surgery Physical therapy and Occupational Therapy, consult for inpatient rehab
[2025-01-21 07:47] VITALS: BMI 33.7
[2025-01-21 08:01] LABS: Basophils # (A) 0.04 X 10*3/uL (0.00-0.10); Basophils % (A) 0.4 %; Eosinophils # (A) 0.19 X 10*3/uL (0.04-0.35); Eosinophils % (A) 2.1 %; HCT 38.1 % (39.6-50.0); HGB 11.9 g/dL (13.0-17.0); Immature Grans, Automated 0.70 %; Lymphocytes # (A) 1.33 X 10*3/uL (0.90-5.00); Lymphocytes % (A) 14.5 %; MCH 28.6 pg (27.0-32.0); MCHC 31.2 g/dL (32.0-37.0); MCV 91.6 FL (80.0-97.0); Monocytes # (A) 0.80 X 10*3/uL (0.20-1.00); Monocytes % (A) 8.7 %; NRBC Per 100 WBC 0 X 10*3/uL (0.00-0.01); Neutrophils # (A) 6.73 X 10*3/uL (1.80-7.70); Neutrophils % (A) 73.6 %; Platelet Count 250 X 10*3/uL (140-440); RBC 4.16 X 10*6/uL (4.40-5.60); RDW 14.4 % (11.5-14.5); WBC 9.15 X 10*3/uL (4.50-10.00)
[2025-01-21 08:03] VITALS: BP 118/79; PULSE 57; RESP 15; TEMP 97.8
--- NOTE | 2025-01-21 10:23 | P.DS ---
Providers Date of admission: 01/14/25 12:48 Expected date of discharge: 01/21/25 Attending physician: Angel Butts Consults: 01/14/25 12:46 Consult Physician Routine Consulting Provider: [facility] Consult Reason/Comments: chest pain Do you want consulting provider notified?: Yes, Notify in am 01/15/25 14:29 Consult Physician Routine Consulting Provider: Katharine Rodriguez Consult Reason/Comments: Generalized weakness possible rehab admission Do you want consulting provider notified?: Yes 01/15/25 14:47 Consult Physician Routine Consulting Provider: Richy Tompkins Consult Reason/Comments: fall valentina hip pain Do you want consulting provider notified?: Yes Primary care physician: Lashaun Castro Hospital Course: Discharge diagnosis Chest pain with recent chest trauma Multiple falls with low back pain and bilateral hip pain Generalized weakness Underlying history of hypertension Underlying history of hyperlipidemia Underlying history of valvular heart disease Underlying history of nonischemic cardiomyopathy Underlying history of permanent atrial fibrillation Status post AICD placement Hospital course Idris Duenas, is an 79-year-old male who presented to [facility] emergency room with a chief complaint of chest pain, patient was recently seen in emergency room after sustaining a fall with chest trauma, he was evaluated in the emergency room on 01/08/2025, CT scan of the chest was done and patient was discharged home. Patient continued to feel very weak, he had another fall where he slid off his chair, he was on the floor for 4 hours until the fire department were able to come and pick him, he is complaining of generalized weakness and low back pain and bilateral hip pain. He was evaluated in the emergency room vital examination on presentation revealed a temperature of 97.5 pulse 56 respiration 20 blood pressure 104/67 pulse ox 95% on room air Laboratory data revealed a white blood count of 11.6 hemoglobin 14.0 platelet count 183 BUN 31 creatinine 0.99 Testing in the emergency room revealed EKG revealed atrial fibrillation with slow ventricular response, chest x-ray revealed no germain consolidation or pleural effusion mild cardiomegaly. Patient was admitted to medical floor for further evaluation and treatment On 01/15/2025 patient was seen and examined on the medical floor he is alert and oriented x 3 in no apparent distress he is still complaining of generalized weakness complaining of pain in the chest wall and complaining of lower back pain and bilateral hip pain with difficulty standing walking, otherwise he denies any complaints there is no fever or chills no headache or dizziness no shortness of breath or cough no nausea or vomiting no abdominal pain no diarrhea and no urinary symptoms On 01/16/2025 patient was seen and examined on the medical floor he is alert and oriented x 3 in no apparent distress he isl complaining of weakness complaining of pain in the chest wall and complaining of lower back pain and bilateral hip pain with difficulty standing walking, otherwise he denies any complaints there is no fever or chills no headache or dizziness no shortness of breath or cough no nausea or vomiting no abdominal pain no diarrhea and no urinary symptoms. Plan at this time to continue with physical therapy and Occupational Therapy, awaiting possible transfer to rehab on Saturday. On 01/17/2025 patient is alert and oriented x 3. Patient is currently sitting up in chair reports some complaint with coughing and movement. Cardiology has cleared patient. Awaiting PT OT recommendations with possible transfer to rehab. Patient denies nausea vomiting or diarrhea. Patient denies any urinary burning or frequency. Current vital signs temp 97.4, rate 62, respiratory rate 16, blood [id number] with a pulse ox 96% on room air On 01/18/2025 patient was seen and examined on the medical floor he is alert and oriented x 3 in no apparent distress there is no fever or chills no headache or dizziness no chest pain no shortness of breath no cough no nausea or vomiting no abdominal pain no diarrhea and no urinary symptoms. Consult from inpatient rehab reviewed, patient is not a candidate at this time, awaiting further evaluation by PT OT and possible transfer to rehab. On 01/19/2025 patient is alert and oriented x 3. Awaiting insurance authorization for placement. Patient denies chest pain or shortness of breath. Patient denies nausea vomiting or diarrhea. Patient denies any urinary burning or frequency. On 01/20/2025 was seen and examined on the medical floor she is alert and oriented x 3 in no apparent distress there is no fever or chills no headache or dizziness no chest pain no shortness of breath no cough no nausea or vomiting no abdominal pain no diarrhea and no urinary symptoms. Still awaiting for insurance authorization for rehab admission. On 01/21/2025 patient is alert and oriented x 3. Patient has received insurance authorization to be DC'd to ECF facility. Patient denies chest pain or shortness of breath. Patient denies any urinary burning or frequency. Patient Condition at Discharge: Stable Plan - Discharge Summary Discharge Rx Participant: Yes New Discharge Prescriptions: Continue Famotidine [Pepcid] 20 mg PO BID Escitalopram [Lexapro] 20 mg PO HS Cholecalciferol [Vitamin D3 (25 Mcg = 1000 Iu)] 25 mcg PO DAILY Ferrous Sulfate [Iron (65 MG Elemental)] 325 mg PO DAILY HYDROcodone/APAP 10-325MG [[place] 10-325] 1 tab PO QID PRN 3 Days #12 tab PRN Reason: Pain Apixaban [Eliquis] 5 mg PO BID tab Tamsulosin HCl [Flomax] 0.4 mg PO HS Metoprolol Succinate (ER) [Toprol XL] 150 mg PO HS Furosemide [Lasix] 20 mg PO BID@0900,1600 60 Days #30 tab Spironolactone [Aldactone] 25 mg PO DAILY #90 tablet Amiodarone [Cordarone] 100 mg PO DAILY #90 tablet Multivitamins, Thera [Multivitamin (formulary)] 1 tab PO DAILY Cyanocobalamin (Vitamin B-12) [Vitamin B-12] 1,000 mcg PO DAILY Discharge Medication List Escitalopram [Lexapro] 20 mg PO HS 08/10/22 [History] Famotidine [Pepcid] 20 mg PO BID 08/10/22 [History] Apixaban [Eliquis] 5 mg PO BID tab 08/18/22 [Rx] Cholecalciferol [Vitamin D3 (25 Mcg = 1000 Iu)] 25 mcg PO DAILY 06/09/24 [History] Tamsulosin HCl [Flomax] 0.4 mg PO HS 06/09/24 [History] Metoprolol Succinate (ER) [Toprol XL] 150 mg PO HS 11/13/24 [History] Furosemide [Lasix] 20 mg PO BID@0900,1600 60 Days #30 tab 11/16/24 [Rx] Amiodarone [Cordarone] 100 mg PO DAILY #90 tablet 12/14/24 [Rx] Spironolactone [Aldactone] 25 mg PO DAILY #90 tablet 12/14/24 [Rx] Cyanocobalamin (Vitamin B-12) [Vitamin B-12] 1,000 mcg PO DAILY 01/14/25 [History] Ferrous Sulfate [Iron (65 MG Elemental)] 325 mg PO DAILY 01/14/25 [History] Multivitamins, Thera [Multivitamin (formulary)] 1 tab PO DAILY 01/14/25 [History] HYDROcodone/APAP 10-325MG [[place] 10-325] 1 tab PO QID PRN 3 Days #12 tab 01/21/25 [Rx] Follow up Appointment(s)/Referral(s): Lashaun Castro MD [Primary Care Provider] - 1-2 days Bernardo Holt PAC [PHYSICIAN ME[employer]ICAL [employer]S DES[employer]ER] - 4 Weeks (Patient may follow-up with Bernardo Holt PA-C or Dr. Yemi Tinoco at [facility] in 4 weeks following discharge. ) Discharge Disposition: TRANSFER TO SNF/ECF
[2025-01-21 10:28] LABS: ALT 28 U/L (10-49); AST 25 U/L (14-35); Albumin 3.0 g/dL (3.8-4.9); Albumin/Globulin Ratio 1.58 Ratio (1.60-3.17); Alkaline Phosphatase 153 U/L (41-126); Anion Gap 10.00 mmol/L (4.00-12.00); BUN/Creat Ratio 25.91 Ratio (12.00-20.00); Blood Urea Nitrogen 28.5 mg/dL (9.0-27.0); Calcium 8.2 mg/dL (8.7-10.3); Carbon Dioxide 24.0 mmol/L (21.6-31.8); Chloride 101 mmol/L (96-109); Globulin 1.9 g/dL (1.6-3.3); Glucose 97 mg/dL (70-110); Potassium 4.2 mmol/L (3.5-5.5); Sodium 135 mmol/L (135-145); Total Protein 4.9 g/dL (6.2-8.2)
== END 2025-01-21 13:02 ==
LOC: EC 10:46 → 6NMEDSUR 12:48
PROVIDERS: ADMIT Internal Medicine; ATTEND Internal Medicine
DX: R07.89 Other chest pain (principal); R26.9 Unspecified abnormalities of gait and mobility; R29.6 Repeated falls; M25.551 Pain in right hip; M25.552 Pain in left hip; M48.56XA Collapsed vertebra, not elsewhere classified, lumbar region, initial encounter for fracture; M48.54XA Collapsed vertebra, not elsewhere classified, thoracic region, initial encounter for fracture; M43.16 Spondylolisthesis, lumbar region; R53.1 Weakness; I11.0 Hypertensive heart disease with heart failure; I50.9 Heart failure, unspecified; I48.21 Permanent atrial fibrillation; G47.30 Sleep apnea, unspecified; I42.8 Other cardiomyopathies; E78.5 Hyperlipidemia, unspecified; I71.40 Abdominal aortic aneurysm, without rupture, unspecified; I25.10 Atherosclerotic heart disease of native coronary artery without angina pectoris; Z85.828 Personal history of other malignant neoplasm of skin; Z87.891 Personal history of nicotine dependence; Z91.81 History of falling; Z95.810 Presence of automatic (implantable) cardiac defibrillator; Z79.01 Long term (current) use of anticoagulants; Z79.899 Other long term (current) drug therapy; Z82.49 Family history of ischemic heart disease and other diseases of the circulatory system
CPT/HCPCS: 36415; 71046; 72100; 73521; 80053; 83735; 83880; 84484; 85025; 85610; 85730; 93005; 93306; 96374; 96376; 99285